=== PATIENT | male | born 1960 | race Caucasian/White ===

== ENCOUNTER 2020-07-27 14:41 | Outpatient (CLI) | payer OTHER, SELFPAY ==
--- NOTE | 2020-07-27 14:51 | XR_ITS ---
WS: [id number] LUMBAR SPINE: 3 VIEWS TECHNIQUE: AP, lateral and L5-S1 spot. HISTORY: LOW BACK PAIN, SCIATICA, LEFT SIDE, FALL INITIAL ENCOUNTER COMPARISON: None available. Normal lumbar alignment. Mild disc space narrowing at L5-S1. Small endplate osteophytes at all levels . No acute fractures are identified. SI joints are symmetric bilaterally. No soft tissue abnormalities. Scattered calcification in aorta. XR/XR lumbar spine 2-3V* [id number] IMPRESSION: No acute lumbar spine fracture. Mild atherosclerosis aorta.
--- NOTE | 2020-07-27 14:51 | XR_ITS ---
WS: [id number] PELVIS: AP VIEW SUBMITTED HISTORY: LOW BACK PAIN, SCIATICA, LEFT SIDE, FALL INITIAL ENCOUNTER COMPARISON: None available. No fractures are identified. Enthesopathy from the iliac crest. Mild narrowing of the hip joints and SI joints. XR/XR pelvis 1-2V* [id number] IMPRESSION: Degenerative changes at the SI joints and hip joints. No fracture identified. I f pain continues consider additional evaluation by CT.
== END 2020-07-27 14:42 | disposition home or self-care (01) ==
LOC: RADWPI 14:44
PROVIDERS: PCP Nurse Practitioner Family; Visit Provider Nurse Practitioner Family
DX: M54.5 Low back pain (principal); M54.32 Sciatica, left side; W19.XXXA Unspecified fall, initial encounter; I70.0 Atherosclerosis of aorta
CPT/HCPCS: 72100; 72170

== ENCOUNTER 2022-01-26 11:19 | Outpatient (CLI) | payer OTHER, SELFPAY ==
--- NOTE | 2022-01-26 11:38 | XR_ITS ---
WS: [id number] Acute abdomen series, 01/26/2022 Clinical Data: ABDOMINAL PAIN, LOOSE STOOLS Comparison: None. Findings: In the chest there are no nodules, masses or effusions. The heart is normal. The pulmonary vascularity is not increased. There is right lower pleural thickening which may be from a prior infec tion or trauma. No free air is seen beneath the diaphragms. No abnormal intra-abdominal masses or calcifications are seen. There is air in the stomach, small bowel and colon but no evidence of obstruction. XR/XR acute abdomen series [id number] Impression: 1. Right lower pleural thickening which may be from an old injury or infection. 2. Mild generalized ileus.
== END 2022-01-26 11:20 | disposition home or self-care (01) ==
LOC: RAD 11:31
PROVIDERS: PCP Nurse Practitioner Family; Visit Provider Nurse Practitioner Family
DX: R10.9 Unspecified abdominal pain (principal); R19.5 Other fecal abnormalities; K56.7 Ileus, unspecified
CPT/HCPCS: 74022

== ENCOUNTER 2022-05-06 05:18 | Emergency (ER) | payer OTHER, SELFPAY ==
[2022-05-06 05:20] VITALS: BP 186/77; PULSE 90; RESP 18; O2SAT 98; BMI 22.1
--- NOTE | 2022-05-06 05:29 | ED_ITS ---
Documented by User: Kj Villafana MD 05/13/22 01:21 HPI - General Adult General: Chief complaint: General Medical Stated complaint: PAIN FROM SURGERY SITE Time Seen by Provider: 05/06/22 05:29 History of Present Illness: Mr Shin is a 62-year-old gentleman who presents to the emergency department due to concern over postoperative swelling and increased pain. He reports having a inguinal hernia repair performed by Dr. Donovan in the outpatient surgery center yesterday. He was doing well postoperatively until midnight when he noticed increased swelling and pain primarily in the right groin region. He denies specific provoking factor. Since that time s ymptoms have worsened. Pain is moderate to severe. He reports urinating before he went to bed, he has not had bowel movement yet, denies nausea or vomiting. No other signs of systemic illness. No other specific changes in health, exacerbating, or alleviating factors identified. Onset (ago): hour(s) Location: pelvis and genitals Severity: moderate Quality: aching and sharp Pain Consistency: constant Exacerbating factors: movement Review of Systems General: Reports: 10 or more systems reviewed and unremarkable except in HPI and below PFSH ED PFSH: Surgical History H/O hernia repair Family History Denies family history of Clotting disorder Bleeding disorder Physical Exam Const: COMMON NORMALS: alert GENERAL APPEARANCE: cooperative and well developed HENMT: COMMON NORMALS: normocephalic and atraumatic HEAD & SCALP: normocephalic and atraumatic Eye: COMMON NORMALS: conjunctivae normal CONJUNCTIVA: Yes conjunctivae normal SCLERA: sclerae normal Neck/C-Spine: COMMON NORMALS: supple GENERAL: Yes trachea midline Resp: COMMON NORMALS: normal respiratory effort EFFORT & INSPECTION: Yes able to speak in complete sentences Cardio: COMMON NORMALS: regular rate and regular rhythm RATE: regular rate RHYTHM: regular rhythm GI: COMMON NORMALS: Soft to palpation PALPATION: Yes Soft to palpation and Yes Tenderness to palpation present (GI) OTHER: echymosis and swelling in the suprapubic region and inguinal region Extremity: GENERAL: Yes normal exam except as noted and No edema Neuro: COMMON NORMALS: moves all extremities SENSORIUM/ORIENTATION: Yes alert and No Orientation impaired Psych: COMMON NORMALS: mental status grossly normal and Normal thought process present THOUGHT PROCESS: Normal thought process present Course ED course: - Patient was seen and evaluated by me at bedside - Patient placed on cardiac monitors, IV access obtained - Initial evaluation notable for exam as above, inguinal swelling in the postoperative region. No evidence of acute surgical abdomen. - Patient care handed off to Dr. Bradshaw pending completion of imaging and discussion with operating surgeon Vital Signs: Vital signs: Vital Signs Pulse Rate 86 05/06/22 10:51 Respiratory Rate 14 05/06/22 10:51 Blood Pressure 179/90 05/06/22 10:51 Pulse Oximetry 98 05/06/22 10:51 MDM - General Adult Medical Decision Making 62-year-old gentleman with recent inguinal repair presenting with swelling and pain. Handed off to Dr. Bradshaw pending completion of CT read and discussion with operating surgeon. Hematoma in inguinal area likely caused by his Plavix. Discussed with Dr. Malcolm at this point so anything that would drain last the patient to stop his Plavix use ice on the area also gave him pain medications. Discharge home follow-up with Dr. Malcolm early next week return if is further problems. Strongly encoura ged him to avoid any exertional activities follow the restrictions given by Dr. Donovan postop very closely. Lab Data : 05/06/22 06:20 05/06/22 06:20 Radiology Impressions Abdomen/Pelvis CT 05/06/22 05:38 IMPRESSION: Postsurgical changes in the right inguinal region. Significant heterogenous/soft tissue enlargement extending from the right inguinal region into the scrotum concerning for postoperative hematoma/blood products. Laboratory Results WBC 16.9 10^3/uL (4.0-10.0) H 05/06/22 06:20 RBC 4.61 10^6/uL (4.1-5.3) 05/06/22 06:20 Hgb 15.0 g/dL (11.7-16.6) 05/06/22 06:20 Hct 43.4 % (42.0-52.0) 05/06/22 06:20 MCV 94.1 fl (80-94) H 05/06/22 06:20 MCH 32.5 pg (28.0-34.0) 05/06/22 06:20 MCHC 34.6 g/dL (30.0-36.0) 05/06/22 06:20 RDW 13.2 % (12.1-15.1) 05/06/22 06:20 Plt Count 231 10^3/cmm (130-400) 05/06/22 06:20 MPV 10.1 fL (7.4-10.4) 05/06/22 06:20 Neut % (Auto) 82.1 % 05/06/22 06:20 Lymph % (Auto) 9.6 % 05/06/22 06:20 Dukes % (Auto) 7.4 % 05/06/22 06:20 Eos % (Auto) 0.1 % 05/06/22 06:20 Baso % (Auto) 0.4 % 05/06/22 06:20 Neut # (Auto) 13.84 10^3/uL (1.8-7.7) H 05/06/22 06:20 Lymph # (Auto) 1.6 10^3/uL (0.8-4.8) 05/06/22 06:20 Dukes # (Auto) 1.2 10^3/uL (0.2-0.9) H 05/06/22 06:20 Eos # (Auto) 0.0 10^3/uL (0.0-0.8) 05/06/22 06:20 Baso # (Auto) 0.1 10^3/uL (0.0-0.1) 05/06/22 06:20 Nucleated RBC % (auto) 0 % 05/06/22 06:20 Nucleated RBCs # 0.0 /100WBC 05/06/22 06:20 Sodium 138 mmol/L (136-145) 05/06/22 06:20 Potassium 3.5 mmol/L (3.5-5.1) 05/06/22 06:20 Chloride 101 mmol/L (98-107) 05/06/22 06:20 Carbon Dioxide 25 mmol/L (22-29) 05/06/22 06:20 Anion Gap 15.5 (5-19) 05/06/22 06:20 BUN 24 mg/dL (8-23) H 05/06/22 06:20 Creatinine 0.9 mg/dL (0.7-1.2) 05/06/22 06:20 GFR Calculation 85.2 mL/min (90-130) L 05/06/22 06:20 Glucose 160 mg/dL (65-115) H 05/06/22 06:20 Calculated Osmolality 293 mOsm/kg (285-295) 05/06/22 06:20 Calcium 9.1 mg/dL (8.5-10.5) 05/06/22 06:20 Total Bilirubin 0.7 mg/dL (0.15-1.2) 05/06/22 06:20 AST 18 U/L (0-40) 05/06/22 06:20 ALT 17 U/L (0-41) 05/06/22 06:20 Alkaline Phosphatase 60 IU/L (40-130) 05/06/22 06:20 Total Protein 6.2 g/dL (6.6-8.7) L 05/06/22 06:20 Albumin 4.0 g/dL (3.5-5.2) 05/06/22 06:20 Globulin 2.2 g/dL (1.3-4.6) 05/06/22 06:20 Discharge Plan Discharge Patient Disposition: Home Clinical Impression: Postoperative hematoma, Medication side effect Condition: Stable Prescriptions: New hydrocodone-acetaminophen 5-325 mg tablet 1 tab PO Q6H PRN (Reason: pain) Qty: 25 0RF Discharge Orders: Discharge ED (Routine); Ordered 05/06/22 Ordered By: Tiago Bradshaw Referrals: Snowden,Marcelina, [employer] [Primary Care Provider] - Discharge Diet: Usual diet Discharge Activity: Limit activity as instructed Patient Instructions: Opioid Safety Activity Restrictions/Additional Instructions: No strenuous activities. Continue same lifting restrictions given to you by Dr. Donovan after your surgery. Follow-up with Dr. Donovan next week to reevaluate the hematoma. Stop taking your clopidogrel until Dr. Donovan has your resume. Sign Out Sign Out Data: Patient Sign Out occurred on 05/06/22 at 06:45. Patient's care was discussed, and care was transferred from to Tiago Bradshaw DO. Coding Level of Care Code ED Book Illustrator for Chg Fwd Documented by User: Tiago Bradshaw DO 05/06/22 16:27 HPI - General Adult General: Chief complaint: General Medical Stated complaint: PAIN FROM SURGERY SITE Time Seen by Provider: 05/06/22 05:29 PFSH ED PFSH: Surgical History H/O hernia repair Family History Denies family history of Clotting disorder Bleeding disorder Course Vital Signs: Vital signs: Vital Signs Pulse Rate 86 05/06/22 10:51 Respiratory Rate 14 05/06/22 10:51 Blood Pressure 179/90 05/06/22 10:51 Pulse Oximetry 98 05/06/22 10:51 MDM - General Adult Medical Decision Making Hematoma in inguinal area likely caused by his Plavix. Discussed with Dr. Malcolm at this point so anything that would drain last the patient to stop his Plavix use ice on the area also gave him pain medications. Discharge home follow-up with Dr. Malcolm early next week return if is further problems. Strongly encouraged him to avoid any exertional activities follow the restrictions given by Dr. Donovan postop very closely. Medical Records I reviewed the patient's medical records. Lab Data I reviewed the patient's lab results. : 05/06/22 06:20 05/06/22 06:20 Radiology Impressions Abdomen/Pelvis CT 05/06/22 05:38 IMPRESSION: Postsurgical changes in the right inguinal region. Significant heterogenous/soft tissue enlargement extending from the right inguinal region into the scrotum concerning for postoperative hematoma/blood products. Laboratory Results WBC 16.9 10^3/uL (4.0-10.0) H 05/06/22 06:20 RBC 4.61 10^6/uL (4.1-5.3) 05/06/22 06:20 Hgb 15.0 g/dL (11.7-16.6) 05/06/22 06:20 Hct 43.4 % (42.0-52.0) 05/06/22 06:20 MCV 94.1 fl (80-94) H 05/06/22 06:20 MCH 32.5 pg (28.0-34.0) 05/06/22 06:20 MCHC 34.6 g/dL (30.0-36.0) 05/06/22 06:20 RDW 13.2 % (12.1-15.1) 05/06/22 06:20 Plt Count 231 10^3/cmm (130-400) 05/06/22 06:20 MPV 10.1 fL (7.4-10.4) 05/06/22 06:20 Neut % (Auto) 82.1 % 05/06/22 06:20 Lymph % (Auto) 9.6 % 05/06/22 06:20 Dukes % (Auto) 7.4 % 05/06/22 06:20 Eos % (Auto) 0.1 % 05/06/22 06:20 Baso % (Auto) 0.4 % 05/06/22 06:20 Neut # (Auto) 13.84 10^3/uL (1.8-7.7) H 05/06/22 06:20 Lymph # (Auto) 1.6 10^3/uL (0.8-4.8) 05/06/22 06:20 Dukes # (Auto) 1.2 10^3/uL (0.2-0.9) H 05/06/22 06:20 Eos # (Auto) 0.0 10^3/uL (0.0-0.8) 05/06/22 06:20 Baso # (Auto) 0.1 10^3/uL (0.0-0.1) 05/06/22 06:20 Nucleated RBC % (auto) 0 % 05/06/22 06:20 Nucleated RBCs # 0.0 /100WBC 05/06/22 06:20 Sodium 138 mmol/L (136-145) 05/06/22 06:20 Potassium 3.5 mmol/L (3.5-5.1) 05/06/22 06:20 Chloride 101 mmol/L (98-107) 05/06/22 06:20 Carbon Dioxide 25 mmol/L (22-29) 05/06/22 06:20 Anion Gap 15.5 (5-19) 05/06/22 06:20 BUN 24 mg/dL (8-23) H 05/06/22 06:20 Creatinine 0.9 mg/dL (0.7-1.2) 05/06/22 06:20 GFR Calculation 85.2 mL/min (90-130) L 05/06/22 06:20 Glucose 160 mg/dL (65-115) H 05/06/22 06:20 Calculated Osmolality 293 mOsm/kg (285-295) 05/06/22 06:20 Calcium 9.1 mg/dL (8.5-10.5) 05/06/22 06:20 Total Bilirubin 0.7 mg/dL (0.15-1.2) 05/06/22 06:20 AST 18 U/L (0-40) 05/06/22 06:20 ALT 17 U/L (0-41) 05/06/22 06:20 Alkaline Phosphatase 60 IU/L (40-130) 05/06/22 06:20 Total Protein 6.2 g/dL (6.6-8.7) L 05/06/22 06:20 Albumin 4.0 g/dL (3.5-5.2) 05/06/22 06:20 Globulin 2.2 g/dL (1.3-4.6) 05/06/22 06:20 Discharge Plan Discharge Patient Disposition: Home Clinical Impression: Postoperative hematoma, Medication side effect Condition: Stable Prescriptions: New hydrocodone-acetaminophen 5-325 mg tablet 1 tab PO Q6H PRN (Reason: pain) Qty: 25 0RF Discharge Orders: Discharge ED (Routine); Ordered 05/06/22 Ordered By: Tiago Bradshaw Referrals: Marcelina Snowden FNP [Primary Care Provider] - Discharge Diet: Usual diet Discharge Activity: Limit activity as instructed Patient Instructions: Opioid Safety Activity Restrictions/Additional Instructions: No strenuous activities. Continue same lifting restrictions given to you by Dr. Donovan after your surgery. Follow-up with Dr. Donovan next week to reevaluate the hematoma. Stop taking your clopidogrel until Dr. Donovan has your resume. Sign Out Sign Out Data: Patient Sign Out occurred on 05/06/22 at 06:45. Patient's care was discussed, and care was transferred from to Tiago Bradshaw DO. Coding Level of Care Code ED Book Illustrator for Danitzag Juve
--- NOTE | 2022-05-06 05:38 | CTR_ITS ---
PROCEDURE INFORMATION: Exam: CT Abdomen And Pelvis With Contrast Exam date and time: 05/06/2022 7:03 AM Age: 62 years old Clinical indication: Pain; Other: Right inguinal S/P hernia repair; Prior surgery; Surgery date: Post-operative (0-2 days); Surgery type: Right inguinal hernia; Additional info: Increased pain and swelling post hernia repair pod1 TECHNIQUE: Imaging protocol: Computed tomography of the abdomen and pelvis with contrast. Radiation optimization: All CT scans at this facility use at least one of these dose optimization techniques: automated exposure control; mA and/or kV adjustment per patient size (includes targeted exams where dose is matched to clinical indication); or iterative reconstruction. Contrast material: OMNIPAQUE 350; Contrast volume: 90 ml; Contrast route: INTRAVENOUS (IV); COMPARISON: CR XR acute abdomen series [id number] 01/26/2022 11:41 AM RADIATION DOSE METRICS: Total DLP (mGy-cm): 1420.79 FINDINGS: Lungs: The visualized lung bases demonstrate no focal airspace opacification or pleural effusion. Pleural spaces: Minimal pleural scarring/thickening in the lateral portion of the right lung base. Heart: The visualized heart is within normal limits for size. There is no evidence of pericardial abnormality. Liver: The liver is normal in size and contour. Gallbladder and bile ducts: The gallbladder is distended with normal wall thickness and does not demonstrate calcified gallstones. No intra- or extra-hepatic biliary ductal dilatation. Pancreas: Mild atrophy of the pancreas. Spleen: The spleen appears normal. Adrenal glands: The adrenals appear normal. Kidneys and ureters: The kidneys enhance symmetrically and empty into non-dilated ureters. Stomach and bowel: The stomach appears unremarkable. Distal small bowel fecalization which may be related to delayed enteric transit. No small bowel wall thickening, perienteric inflammatory changes, or abnormal dilation concerning for significant obstruction. The large bowel loops are not abnormally dilated. Appendix: No signs of appendicitis. Intraperitoneal space: No ascites or significant fluid collection. Vasculature: The aorta is nonaneurysmal. The IVC appears normal. Lymph nodes: There are no enlarged lymph nodes. Urinary bladder: The bladder is distended and demonstrates no focal contour abnormality. Reproductive: Prostate does not appear enlarged. The seminal vesicles appear unremarkable. Bones/joints: Unremarkable. Soft tissues: Subcutaneous emphysema along the anterior margin of the right anterior abdominal wall extending to the inguinal region and into the scrotum. Prominent heterogenous mixed density attenuation noted extending from the external os of the right inguinal canal into the scrotum concerning for possible hemorrhagic blood products. Fat stranding in the superficial soft tissues of the anterior pelvic wall and upper scrotal region. CT/CT abdomen pelvis w con* [id number] IMPRESSION: Postsurgical changes in the right inguinal region. Significant heterogenous/soft tissue enlargement extending from the right inguinal region into the scrotum concerning for postoperative hematoma/blood products.
[2022-05-06 06:29] LABS: Basophils # 0.1 10^3/uL (0.0-0.1); Basophils % 0.4 %; Eosinophils % 0.1 %; Hematocrit 43.4 % (42.0-52.0); Lymphocytes # 1.6 10^3/uL (0.8-4.8); Lymphocytes % 9.6 %; Mean Corpuscular HGB Conc 34.6 g/dL (30.0-36.0); Mean Corpuscular Hemoglobin 32.5 pg (28.0-34.0); Mean Corpuscular Volume 94.1 fl (80-94); Mean Platelet Volume 10.1 fL (7.4-10.4); Monocytes # 1.2 10^3/uL (0.2-0.9); Monocytes % 7.4 %; Neutrophils # 13.84 10^3/uL (1.8-7.7); Neutrophils % 82.1 %; Nucleated Red Blood Cells % 0 %; Platelet Count 231 10^3/cmm (130-400); Red Blood Count 4.61 10^6/uL (4.1-5.3); Red Cell Distribution Width 13.2 % (12.1-15.1); White Blood Count 16.9 10^3/uL (4.0-10.0)
[2022-05-06 06:46] LABS: Alanine Aminotransferase 17 U/L (0-41); Alkaline Phosphatase 60 IU/L (40-130); Anion Gap 15.5 (5-19); Aspartate Amino Transferase 18 U/L (0-40); Blood Urea Nitrogen 24 mg/dL (8-23); Calcium 9.1 mg/dL (8.5-10.5); Carbon Dioxide 25 mmol/L (22-29); Chloride 101 mmol/L (98-107); Globulin 2.2 g/dL (1.3-4.6); Glomerular Filtration Rate 85.2 mL/min (90-130); Glucose 160 mg/dL (65-115); Osmolality Calculated 293 mOsm/kg (285-295); Potassium 3.5 mmol/L (3.5-5.1); Sodium 138 mmol/L (136-145); Total Bilirubin 0.7 mg/dL (0.15-1.2); Total Protein 6.2 g/dL (6.6-8.7)
[2022-05-06 06:48] VITALS: BP 158/83; PULSE 87; RESP 17; O2SAT 95
[2022-05-06] MEDS: iohexol 350 mg/mL 100 mL Btl IV (07:13)
[2022-05-06 08:56] VITALS: BP 171/83; PULSE 82; RESP 16; O2SAT 97
[2022-05-06] MEDS: morphine 4 mg/mL SDV 1 mL IVP (08:56)
[2022-05-06 10:51] VITALS: BP 179/90; PULSE 86; RESP 14; O2SAT 98
== END 2022-05-06 10:54 | disposition home or self-care (01) ==
PROVIDERS: Emergency Medicine; Emergency Provider Family Medicine; PCP Nurse Practitioner Family
DX: N99.840 Postprocedural hematoma of a genitourinary system organ or structure following a genitourinary system procedure (principal); T50.905A Adverse effect of unspecified drugs, medicaments and biological substances, initial encounter
CPT/HCPCS: 74177; 80053; 85025; 96374; 99284; J2270; Q9967

== ENCOUNTER 2022-07-19 13:44 | Emergency (ER) | payer OTHER, SELFPAY ==
[2022-07-19 14:07] VITALS: BP 158/76; PULSE 76; RESP 18; TEMP 36.7; O2SAT 98; BMI 23.3
--- NOTE | 2022-07-19 14:46 | XRR_ITS ---
PROCEDURE INFORMATION: Exam: XR Chest Exam date and time: 07/19/2022 3:25 PM Age: 62 years old Clinical indication: Pain; Angina pectoris; Additional info: Chest pain TECHNIQUE: Imaging protocol: Radiologic exam of the chest. Views: 1 view. COMPARISON: CT abdomen pelvis w con* [id number] 05/06/2022 7:03 AM FINDINGS: Lungs: Unremarkable. No consolidation. Pleural spaces: Unremarkable. No pleural effusion. No pneumothorax. Heart/Mediastinum: Unremarkable. No cardiomegaly. Bones/joints: Unremarkable. XR/XR chest 1V portable [id number] IMPRESSION: No acute findings.
--- NOTE | 2022-07-19 16:58 | ECG_ITS ---
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 Measurements Intervals [place] Rate: 73 P: 81 [place]: 162 QRS: 77 QRSD: 106 T: 73 QT: 377 QTc: 418 Interpretive Statements SINUS RHYTHM No previous ECG available for comparison Electronically Signed On 07-19-2022 18:00:28 CDT by Ericka Musa M.D. [email or web address]
[2022-07-19 17:06] LABS: Basophils # 0.1 10^3/uL (0.0-0.1); Basophils % 0.8 %; Eosinophils # 0.3 10^3/uL (0.0-0.8); Eosinophils % 3.4 %; Hematocrit 54.2 % (42.0-52.0); Hemoglobin 17.3 g/dL (11.7-16.6); Lymphocytes # 1.7 10^3/uL (0.8-4.8); Lymphocytes % 22.8 %; Mean Corpuscular HGB Conc 31.9 g/dL (30.0-36.0); Mean Corpuscular Hemoglobin 31.3 pg (28.0-34.0); Mean Corpuscular Volume 98.2 fl (80-94); Mean Platelet Volume 10.2 fL (7.4-10.4); Monocytes # 0.5 10^3/uL (0.2-0.9); Monocytes % 7.1 %; Neutrophils # 4.79 10^3/uL (1.8-7.7); Neutrophils % 65.8 %; Nucleated Red Blood Cells % 0 %; Platelet Count 297 10^3/cmm (130-400); Red Blood Count 5.52 10^6/uL (4.1-5.3); Red Cell Distribution Width 13.2 % (12.1-15.1); White Blood Count 7.3 10^3/uL (4.0-10.0)
[2022-07-19 17:30] LABS: Troponin(5th) Baseline 23 ng/L (0-15)
[2022-07-19 17:48] LABS: Anion Gap 19.9 (5-19); Blood Urea Nitrogen 16 mg/dL (8-23); Carbon Dioxide 25 mmol/L (22-29); Chloride 99 mmol/L (98-107); Glomerular Filtration Rate 75.5 mL/min (90-130); Glucose 162 mg/dL (65-115); Osmolality Calculated 295 mOsm/kg (285-295); Potassium 3.9 mmol/L (3.5-5.1); Sodium 140 mmol/L (136-145)
--- NOTE | 2022-07-19 18:29 | ED_ITS ---
HPI - Chest Pain General: Chief Complaint: Chest Pain Stated Complaint: CHEST PAIN Time Seen by Provider: 07/19/22 18:18 Source: patient Mode of arrival: ambulatory History of Present Illness: 62-year-old male presents to the emergency room with complaints of chest pain for the last year. He recently was seen at an outside facility and has had a lung mass in the right side that they are in the process of working up. Patient is a lifelong smoker and he is diabetic. Not noticed anything that exacerbates or relieves the pain. He is not had any associated shortness of breath nausea or diaphoresis with it. He does state he had a stress test several years ago he does not recall the result but tells me he did not require an angiogram after this testing was done. MD complaint: chest pain Timing of current episode: episodic Prior episodes: Yes Pain location: right chest Pain radiation: none Severity: mild Relieving factors: nothing Exacerbating factors: nothing Associated symptoms: Reports no associated symptoms; Deny abdominal pain, dyspnea, fever(s), nausea or vomiting Review of Systems Const: Denies: fever(s), chills, body aches, change in appetite, fatigue or malaise ENMT: Denies: throat pain, ear or mastoid pain, nasal discharge or nasal congestion Card: Denies: chest pain, edema, dyspnea on exertion or orthopnea Resp: Denies: dyspnea, productive cough or non-productive cough GI: Denies: abdominal pain, nausea, vomiting, hematemesis, coffee ground emesis, diarrhea, constipation, bloating, hematochezia or melena : Denies: flank pain, dysuria, urinary frequency or urinary urgency Skin/Breast: Denies: rash or pruritus PFSH ED PFSH: Medical History (Updated 07/19/22 @ 19:58 by Tiago Bradshaw DO) Lung mass Surgical History H/O hernia repair Family History Denies family history of Clotting disorder Bleeding disorder Social History (Updated 07/19/22 @ 18:36 by Tiago Bradshaw DO) Smoking and tobacco status: current every day smoker Alcohol intake: never Physical Exam Const: GENERAL APPEARANCE: cooperative and comfortable ORIENTATION/CONSCIOUSNESS: Yes awake, Yes oriented to person, Yes oriented to place and Yes oriented to time HENMT: COMMON NORMALS: normocephalic, atraumatic and hearing grossly normal bilaterally HEAD & SCALP: normocephalic and atraumatic Resp: COMMON NORMALS: normal respiratory effort, No retractions, No use of accessory muscles and clear to auscultation bilaterally AUSCULTATION: clear to auscultation bilaterally Cardio: COMMON NORMALS: regular rate, regular rhythm and No murmurs present ( Cardio) RATE: regular rate RHYTHM: regular rhythm GI: COMMON NORMALS: Soft to palpation and No hepatosplenomegaly present AUSCULTATION: Yes normoactive bowel sounds PALPATION: Yes Soft to palpation, No Tenderness to palpation present (GI), No Guarding due to palpation present (GI) and Yes No hepatosplenomegaly present Extremity: COMMON NORMALS: normal to inspection, capillary refill normal, no clubbing, cyanosis or edema, no calf tenderness and no pedal edema Neuro: SENSORIUM/ORIENTATION: Yes oriented to person, Yes oriented to place and Yes oriented to time Skin: COMMON NORMALS: no rashes or lesions noted GENERAL SKIN EXAM: no rashes or lesions noted Course Vital Signs: Vital signs: Vital Signs Temperature 97.8 F 07/19/22 18:41 Pulse Rate 78 07/19/22 18:41 Respiratory Rate 15 07/19/22 18:41 Blood Pressure 124/60 07/19/22 18:41 Pulse Oximetry 97 07/19/22 18:41 Oxygen Delivery Me thod 07/19/22 18:41 MDM - Chest Pain Medical Decision Making EKG labs and imaging reviewed. Troponin unremarkable. EKG does not show any acute changes. We will go ahead and refer the patient. He does have risk factors including diabetes smoking. Patient to be discharged home. Continue to take baby aspirin daily. He has ongoing work-up with pulmonology for a lung mass that was discovered on outside hospital. Encouraged him to complete the work-up as planned. Case management will call and make arrangements for him to do cardiac stress test. He should limit exertional activities and return to emergency room if has any worsening chest pain. Medical Records I reviewed the patient's medical records. Lab Data I reviewed the patient's lab results. : 07/19/22 16:28 07/19/22 16:28 Radiology Impressions Chest X-Ray 07/19/22 14:46 IMPRESSION: No acute findings. Laboratory Results WBC 7.3 10^3/uL (4.0-10.0) 07/19/22 16: RBC 5.52 10^6/uL (4.1-5.3) H 07/19/22 16: Hgb 17.3 g/dL (11.7-16.6) H 07/19/22 16:28 Hct 54.2 % (42.0-52.0) H 07/19/22 16: MCV 98.2 fl (80-94) H 07/19/22 16: MCH 31.3 pg (28.0-34.0) 07/19/22 16: MCHC 31.9 g/dL (30.0-36.0) 07/19/22 16: RDW 13.2 % (12.1-15.1) 07/19/22 16: Plt Count 297 10^3/cmm (130-400) 07/19/22 16: MPV 10.2 fL (7.4-10.4) 07/19/22 16: Neut % (Auto) 65.8 % 07/19/22 16: Lymph % (Auto) 22.8 % 07/19/22 16: [place] % (Auto) 7.1 % 07/19/22 16: Eos % (Auto) 3.4 % 07/19/22 16: Baso % (Auto) 0.8 % 07/19/22 16: Neut # (Auto) 4.79 10^3/uL (1.8-7.7) 07/19/22 16: Lymph # (Auto) 1.7 10^3/uL (0.8-4.8) 07/19/22 16: [place] # (Auto) 0.5 10^3/uL (0.2-0.9) 07/19/22 16: Eos # (Auto) 0.3 10^3/uL (0.0-0.8) 07/19/22 16: Baso # (Auto) 0.1 10^3/uL (0.0-0.1) 07/19/22 16: Nucleated RBC % (auto) 0 % 07/19/22 16:28 Nucleated RBCs # 0.0 /100WBC 07/19/22 16:28 Sodium 140 mmol/L (136-145) 07/19/22 16:28 Potassium 3.9 mmol/L (3.5-5.1) 07/19/22 16:28 Chloride 99 mmol/L (98-107) 07/19/22 16:28 Carbon Dioxide 25 mmol/L (22-29) 07/19/22 16:28 Anion Gap 19.9 (5-19) H 07/19/22 16:28 BUN 16 mg/dL (8-23) 07/19/22 16:28 Creatinine 1.0 mg/dL (0.7-1.2) 07/19/22 16:28 GFR Calculation 75.5 mL/min (90-130) L 07/19/22 16:28 Glucose 162 mg/dL (65-115) H 07/19/22 16:28 Calculated Osmolality 295 mOsm/kg (285-295) 07/19/22 16:28 Calcium 10.0 mg/dL (8.5-10.5) 07/19/22 16:28 Troponin T Baseline 23 ng/L (0-15) H 07/19/22 16:28 Troponin T 120 Minute 22.47 ng/L (0-15) H 07/19/22 18:49 Delta Troponin T -0.53 ABS# (0-10) L 07/19/22 18:49 Discharge Plan Discharge Patient Disposition: Home Clinical Impression: Atypical chest pain, Lung mass Condition: Stable Prescriptions: Changed lisinopril 10 mg tablet 20 mg PO DAILY Qty: 30 0RF No Action atorvastatin 40 mg tablet 40 mg PO BEDTIME glipizide 5 mg tablet extended release 24 hr 5 mg PO DAILY clopidogrel 75 mg tablet 75 mg PO DAILY spironolactone 25 mg tablet 25 mg PO DAILY aspirin 81 mg tablet,chewable 81 mg PO DAILY metoprolol succinate 25 mg tablet extended release 24 hr 25 mg PO DAILY albuterol sulfate 90 mcg/actuation HFA aerosol inhaler 1 puff INHALATION Q4H PRN (Reason: Shortness Of Breath Or Wheezing) Anoro Ellipta 62.5-25 mcg/actuation blister with device 1 inh INHALATION DAILY Jardiance 25 mg tablet 25 mg PO DAILY hydrocodone-acetaminophen 5-325 mg tablet 1 tab PO Q6H PRN (Reason: pain) Qty: 25 0RF Discharge Orders: Discharge ED (Routine); Ordered 07/19/22 Ordered By: Tiago Bradshaw Referrals: Marcelina Snowden FNP [Primary Care Provider] - Discharge Diet: Usual diet Discharge Activity: Increase activity as tolerated Patient Instructions: Opioid Safety, Pain Management Activity Restrictions/Additional Instructions: Case management will call to make arrangements for cardiac stress testing. Coding Level of Care Code ED Pressure Tester Operator for Chg Fwd Exam Detailed
[2022-07-19 18:41] VITALS: BP 124/60; PULSE 78; RESP 15; TEMP 36.6; O2SAT 97
[2022-07-19 19:41] LABS: Troponin 5 2HR 22.47 ng/L (0-15)
[2022-07-19 19:42] LABS: Troponin 5 2HR Delta -0.53 ABS# (0-10)
[2022-07-19 20:38] VITALS: BP 182/98; PULSE 83; RESP 15; TEMP 36.6; O2SAT 99
[2022-07-19] MEDS: lisinopril 10 mg Tablet PO (20:42)
[2022-07-19 20:45] VITALS: BP 182/98; PULSE 83; RESP 15; TEMP 36.6; O2SAT 99
== END 2022-07-19 20:49 | disposition home or self-care (01) ==
PROVIDERS: Emergency Medicine; Emergency Provider Family Medicine; PCP Nurse Practitioner Family
DX: R07.89 Other chest pain (principal); R91.8 Other nonspecific abnormal finding of lung field; Z79.84 Long term (current) use of oral hypoglycemic drugs; Z79.02 Long term (current) use of antithrombotics/antiplatelets; Z79.82 Long term (current) use of aspirin; F17.210 Nicotine dependence, cigarettes, uncomplicated
CPT/HCPCS: 36415; 71045; 80048; 84484; 85025; 93005; 99284; 99285

== ENCOUNTER 2023-11-22 13:25 | Emergency (ER) | payer OTHER, SELFPAY ==
[2023-11-22 13:32] VITALS: BP 105/62; PULSE 78; RESP 17; TEMP 37.1; O2SAT 92; BMI 24.3
--- NOTE | 2023-11-22 13:46 | XR_ITS ---
WS: [id number] Exam: XR chest 1V portable [id number] Date/Time of Exam: 11/22/2023 1:46 PM Reason For Exam: cough Comparison 07/19/2022. The lungs are clear and fully inflated. Chronic interstitial changes noted. Chronic pleural thickenin g at the RIGHT costophrenic angle. Normal cardiomediastinal silhouette. Bony structures appear normal . IMPRESSION: 1. No acute cardiopulmonary finding. 2. Chronic changes as detailed above.
--- NOTE | 2023-11-22 14:48 | ED_ITS ---
HPI - COVID 2 General: Chief Complaint: COVID symptoms Stated Complaint: congested Time Seen by Provider: 11/22/23 13:46 History of Present Illness: 63-year-old male patient comes in today with cough and congestion for the last 3 days. Patient reports was diagnosed with flu yesterday. Patient thought his provider was going to send in a prescription for some medication that he never got the prescription. Patient reports that he feels unwell and does not feel like he is able to catch his breath. Patient does have a history of COPD and a lung mass. Patient takes routine medicines for this. Patient appears mildly unwell but nontoxic. Patient appears in no acute distress. COVID Results: 2 No Data to Display Review of Systems 2 General: Reports: 10 or more systems reviewed and unremarkable except in HPI and below Resp: Reports: chest congestion PFS ED 2 PFSH: Medical History (Updated 11/22/23 @ 17:09 by LEAH Kingsley) Lung mass Surgical History H/O hernia repair Family History Denies family history of Clotting disorder Bleeding disorder Social History (Updated 07/19/22 @ 18:36 by Tiago Bradshaw DO) Smoking and tobacco/nicotine status: current every day tobacco/nicotine user Alcohol intake: never Physical Exam 2 Const: COMMON NORMALS: alert HENMT: COMMON NORMALS: normocephalic HEAD & SCALP: normocephalic Neck/C-Spine: COMMON NORMALS: full ROM Chest: COMMONS NORMALS: normal inspection of the chest Resp: COMMON NORMALS: normal respiratory effort AUSCULTATION: diminished lung sounds Cardio: COMMON NORMALS: regular rate and regular rhythm RATE: regular rate RHYTHM: regular rhythm Extremity: COMMON NORMALS: normal to inspection Neuro: SENSORIUM/ORIENTATION: Yes alert Skin: COMMON NORMALS: turgor normal GENERAL SKIN EXAM: turgor normal Course 2 ED course: 1620, patient had oxygen saturations get ting down into the upper 80s. Patient does know of his oxygen running low at times but has been resistant in the past for initiation of oxygen. Patient does continue to smoke tobacco. Vital Signs: Vital signs: Vital Signs Temperature 98.7 F 11/22/23 13:32 Pulse Rate 89 11/22/23 16:25 Respiratory Rate 16 11/22/23 16:22 Blood Pressure 105/62 11/22/23 13:32 Pulse Oximetry 87 L 11/22/23 16:29 Oxygen Delivery Me thod Room Air 11/22/23 16:22 Oxygen Flow Rate 2 11/22/23 15:00 [facility] - COVID Medical Decision Making 63-year-old male patient comes in today for complaints of fatigue and malaise. Patient was seen yesterday at primary care and diagnosed with influenza. Patient thought that he was being prescribed medication but no medications were sent to the pharmacy. On exam patient appears nontoxic. Lungs are decreased in the bases. Vital signs are normal except for some mild hypoxia ranging between 88 and 92% on room air. Patient does have a history of COPD and a lung mass. Differential diagnosis includes not limited to pneumonia, exacerbation of COPD, influenza, respiratory failure. No signs of severe illness is noted. Chest x- ray was stable. Laboratory values noted a white count of 13,000, hemoglobin [place] crit are slightly elevated at 17.9/53. CMP noted some mild elevation in glucose at 293, and a sodium of 132. Patient was given 500 mL of fluid. Patient was given steroids for exacerbation of COPD and a dose of ceftriaxone. Patient be continued on 20 mg prednisone daily for the next 7 days and Augmentin. Patient should continue with use of home medications and follow-up with primary care or return to ER for worsening symptoms. Respiratory Home O2 eval did qualify patient for 3 L of oxygen per nasal cannula. Prescription was written. Believe patient will benefit from oxygen therapy. Strongly discussed cessation of tobacco smoking. Lab Data 11/22/23 15:08 11/22/23 15:08 Laboratory Results WBC 13.19 10^3/uL (3.29-11.43) H 11/22/23 15:08 RBC 5.47 10^6/uL (3.85-5.65) 11/22/23 15:08 Hgb 17.90 g/dL (11.27-16.99) H 11/22/23 15:08 Hct 53.3 % (37-53) H 11/22/23 15:08 MCV 97.4 fl (82-101) 11/22/23 15:08 MCH 32.7 pg (27-33) 11/22/23 15:08 MCHC 33.6 g/dL (30-55) 11/22/23 15:08 RDW 13.7 % (12.1-15.1) 11/22/23 15:08 Plt Count 194 10^3/cmm (157-399) 11/22/23 15:08 MPV 10.7 fL (7.4-10.4) H 11/22/23 15:08 Neut % (Auto) 83.7 % 11/22/23 15:08 Lymph % (Auto) 4.2 % 11/22/23 15:08 [place] % (Auto) 11.4 % 11/22/23 15:08 Eos % (Auto) 0.0 % 11/22/23 15:08 Baso % (Auto) 0.2 % 11/22/23 15:08 Neut # (Auto) 11.03 10^3/uL (1.8-7.7) H 11/22/23 15:08 Lymph # (Auto) 0.6 10^3/uL (0.8-4.8) L 11/22/23 15:08 [place] # (Auto) 1.5 10^3/uL (0.2-0.9) H 11/22/23 15:08 Eos # (Auto) 0.0 10^3/uL (0.0-0.8) 11/22/23 15:08 Baso # (Auto) 0.0 10^3/uL (0.0-0.1) 11/22/23 15:08 Nucleated RBC % (auto) 0 % 11/22/23 15:08 Nucleated RBCs # 0.0 /100WBC 11/22/23 15:08 Sodium 132 mmol/L (136-145) L 11/22/23 15:08 Potassium 3.7 mmol/L (3.5-5.1) 11/22/23 15:08 Chloride 96 mmol/L (98-107) L 11/22/23 15:08 Carbon Dioxide 23 mmol/L (22-29) 11/22/23 15:08 Anion Gap 16.7 (5-19) 11/22/23 15:08 BUN 25 mg/dL (8-23) H 11/22/23 15:08 Creatinine 1.1 mg/dL (0.7-1.2) 11/22/23 15:08 GFR Calculation 67.4 mL/min (90-130) L 11/22/23 15:08 Glucose 293 mg/dL (65-115) H 11/22/23 15:08 Calculated Osmolality 289 mOsm/kg (285-295) 11/22/23 15:08 Calcium 8.9 mg/dL (8.5-10.5) 11/22/23 15:08 Total Bilirubin 0.7 mg/dL (0.15-1.2) 11/22/23 15:08 AST 26 U/L (0-40) 11/22/23 15:08 ALT 19 U/L (0-41) 11/22/23 15:08 Alkaline Phosphatase 84 U/L (40-130) 11/22/23 15:08 Total Protein 6.7 g/dL (6.6-8.7) 11/22/23 15:08 Albumin 3.4 g/dL (3.5-5.2) L 11/22/23 15:08 Globulin 3.3 g/dL (1.3-4.6) 11/22/23 15:08 2 No Data to Display All radiology interpretation(s) finalized by discharge Discharge Plan Discharge Patient Disposition: Home Clinical Impression: Influenza, Acute exacerbation of chronic obstructive pulmonary disease, Hypoxia Condition: Stable Prescriptions: New prednisone 20 mg tablet 20 mg PO BID 7 Days Qty: 14 0RF amoxicillin-pot clavulanate 875-125 mg tablet 1 tab PO BID 7 Days Qty: 14 0RF No Action atorvastatin 40 mg tablet 40 mg PO BEDTIME glipizide 5 mg tablet extended release 24 hr 5 mg PO DAILY clopidogrel 75 mg tablet 75 mg PO DAILY spironolactone 25 mg tablet 25 mg PO DAILY aspirin 81 mg tablet,chewable 81 mg PO DAILY albuterol sulfate 90 mcg/actuation HFA aerosol inhaler 1 puff INHALATION Q4H PRN (Reason: Shortness Of Breath Or Wheezing) Anoro Ellipta 62.5-25 mcg/actuation blister with device 1 inh INHALATION DAILY Jardiance 25 mg tablet 25 mg PO DAILY metoprolol succinate 50 mg tablet extended release 24 hr 50 mg PO DAILY potassium chloride 10 mEq Tablet Extended Release 10 meq PO EVERY OTHER DAY amlodipine 10 mg tablet 10 mg PO DAILY lisinopril 40 mg tablet 40 mg PO DAILY Flonase 50 mcg/actuation [place],Suspension 1 spray INTRANASAL BID Rx Instructions: administer into each nostril Trelegy Ellipta 100-62.5-25 mcg blister with device 1 ea INHALATION BID Oscillococcinum See Rx Instructions .ROUTE .COMPLEX Rx Instructions: Take 1 dose orally as directed at start of symptoms, then up to 3 times daily as needed. Discharge Orders: Discharge ED (Routine); Ordered 11/22/23 Ordered By: Babak Licea Other Ambulatory Orders: DME: Oxygen (Order) Location: None Selected Ordered By: Babak Licea Referrals: Marcelina Snowden FNP [Primary Care Provider] - Discharge Diet: Usual diet Discharge Activity: Increase activity as tolerated Patient Instructions: COPD (Chronic Obstructive Pulmonary Disease) (ED) Activity Restrictions/Additional Instructions: Continue with routine medications. Drink plenty water and fluids. Follow-up with primary care for further instructions. Return to ED for new concerns. Stand Alone Forms: Work/School Release Coding Level of Care Code ED Retail Commission Sales Associate for Lidia An
[2023-11-22 15:00] VITALS: O2SAT 92
[2023-11-22 15:20] LABS: Basophils % 0.2 %; Hematocrit 53.3 % (37-53); Lymphocytes # 0.6 10^3/uL (0.8-4.8); Lymphocytes % 4.2 %; Mean Corpuscular HGB Conc 33.6 g/dL (30-55); Mean Corpuscular Hemoglobin 32.7 pg (27-33); Mean Corpuscular Volume 97.4 fl (82-101); Mean Platelet Volume 10.7 fL (7.4-10.4); Monocytes # 1.5 10^3/uL (0.2-0.9); Monocytes % 11.4 %; Neutrophils # 11.03 10^3/uL (1.8-7.7); Neutrophils % 83.7 %; Nucleated Red Blood Cells % 0 %; Platelet Count 194 10^3/cmm (157-399); Red Blood Count 5.47 10^6/uL (3.85-5.65); Red Cell Distribution Width 13.7 % (12.1-15.1); White Blood Count 13.19 10^3/uL (3.29-11.43)
[2023-11-22 15:35] LABS: Alanine Aminotransferase 19 U/L (0-41); Albumin Level 3.4 g/dL (3.5-5.2); Alkaline Phosphatase 84 U/L (40-130); Anion Gap 16.7 (5-19); Aspartate Amino Transferase 26 U/L (0-40); Blood Urea Nitrogen 25 mg/dL (8-23); Calcium 8.9 mg/dL (8.5-10.5); Carbon Dioxide 23 mmol/L (22-29); Chloride 96 mmol/L (98-107); Globulin 3.3 g/dL (1.3-4.6); Glomerular Filtration Rate 67.4 mL/min (90-130); Glucose 293 mg/dL (65-115); Osmolality Calculated 289 mOsm/kg (285-295); Potassium 3.7 mmol/L (3.5-5.1); Sodium 132 mmol/L (136-145); Total Bilirubin 0.7 mg/dL (0.15-1.2); Total Protein 6.7 g/dL (6.6-8.7)
[2023-11-22] MEDS: acetaminophen 500 mg Tablet 1000 MG PO (15:42)
[2023-11-22] MEDS: sodium chloride 0.9% 500 ML 999 ML IV (15:55)
[2023-11-22] MEDS: cefTRIAXone 1,000 MG in sodium chloride 0.9% (plus) 50 ML 100 MG IV (15:58)
[2023-11-22] MEDS: methylPREDNISolone sod succ 125 mg/2 mL INJ 80 MG IVP (16:02)
[2023-11-22] MEDS: dexamethasone 10 mg/mL INJ 8 MG IVP (16:02)
[2023-11-22 16:22] VITALS: PULSE 87; RESP 16; O2SAT 93
[2023-11-22] MEDS: ipratropium-albuterol 3 mL Neb INHALATION (16:22)
[2023-11-22 16:25] VITALS: PULSE 89
[2023-11-22 16:29] VITALS: O2SAT 87
== END 2023-11-22 18:26 | disposition home or self-care (01) ==
PROVIDERS: Emergency Provider Nurse Practitioner Family; PCP Nurse Practitioner Family
DX: J44.1 Chronic obstructive pulmonary disease with (acute) exacerbation (principal); R09.02 Hypoxemia; J11.1 Influenza due to unidentified influenza virus with other respiratory manifestations; Z72.0 Tobacco use; Z79.02 Long term (current) use of antithrombotics/antiplatelets; Z79.82 Long term (current) use of aspirin; Z79.84 Long term (current) use of oral hypoglycemic drugs
CPT/HCPCS: 36415; 71045; 80053; 85025; 94640; 96374; 96375; 99284; J0696; J1100; J2930; J7040

== ENCOUNTER 2024-08-13 15:32 | Inpatient (IN) | payer MEDICARE, SELFPAY ==
[2024-08-13 16:21] VITALS: BP 109/66; PULSE 97; RESP 24; TEMP 36.8; O2SAT 96; BMI 25.9
[2024-08-13 18:02] VITALS: BP 102/49; PULSE 91; RESP 20; O2SAT 95
[2024-08-13 20:20] LABS: Basophils % 0.5 %; Eosinophils # 0.2 10^3/uL (0.0-0.8); Eosinophils % 2.3 %; Hematocrit 55.3 % (37-53); Lymphocytes # 1.2 10^3/uL (0.8-4.8); Lymphocytes % 13.9 %; Mean Corpuscular HGB Conc 32.2 g/dL (30-55); Mean Corpuscular Volume 105.5 fl (82-101); Monocytes % 11.8 %; Neutrophils # 6.12 10^3/uL (1.8-7.7); Neutrophils % 71.2 %; Nucleated Red Blood Cells % 0 %; Platelet Count 211 10^3/cmm (157-399); Red Blood Count 5.24 10^6/uL (3.85-5.65); Red Cell Distribution Width 13.3 % (12.1-15.1); White Blood Count 8.59 10^3/uL (3.29-11.43)
[2024-08-13 20:35] LABS: Alanine Aminotransferase 12 U/L (0-41); Albumin Level 4.3 g/dL (3.5-5.2); Alkaline Phosphatase 75 U/L (40-130); Aspartate Amino Transferase 13 U/L (0-40); Calcium 8.7 mg/dL (8.5-10.5); Carbon Dioxide 12 mmol/L (22-29); Chloride 108 mmol/L (98-107); Creatinine Clr Calc Pharmacy 46.9177; Globulin 3.2 g/dL (1.3-4.6); Glomerular Filtration Rate 43.6 mL/min (90-130); Glucose 163 mg/dL (65-115); Osmolality Calculated 302 mOsm/kg (285-295); Sodium 132 mmol/L (136-145); Total Bilirubin 0.9 mg/dL (0.15-1.2); Total Protein 7.5 g/dL (6.6-8.7)
[2024-08-13 20:39] LABS: Anion Gap 17.4 (5-19); Potassium 5.4 mmol/L (3.5-5.1)
[2024-08-13 20:43] LABS: Blood Urea Nitrogen 81 mg/dL (8-23)
--- NOTE | 2024-08-13 21:19 | ED_ITS ---
HPI - Nausea/Vomiting/Diarrhea 2 General: Chief complaint: Nausea/Vomiting/Diarrhea Stated complaint: abn bp Time Seen by Provider: 08/13/24 21:16 History of Present Illness: 64-year-old man with history of hyperten jose luis and diabetes who presents to the emergency room with diarrhea, weakness and hypotension. He has been having diarrhea now for about a week. No abdominal pain. No vomiting. He has had some nausea. He was seen in clinic today and his blood pressure was low and he was told to go to the emergency room. He has not had any recent antibiotics. Related Data Home Medications Medication Instructions Recorded Confirmed albuterol sulfate 90 mcg/actuation 1 puff inhalation Q4H PRN 07/19/22 11/22/23 aerosol inhaler Shortness Of Breath Or Wheezing aspirin 81 mg chewable tablet 81 mg PO DAILY 07/19/22 11/22/23 atorvastatin 40 mg tablet 40 mg PO BEDTIME 07/19/22 11/22/23 clopidogrel 75 mg tablet 75 mg PO DAILY 07/19/22 11/22/23 empagliflozin 25 mg tablet 25 mg PO DAILY 07/19/22 11/22/23 (Jardiance) glipizide 5 mg tablet, extended 5 mg PO DAILY 07/19/22 11/22/23 release 24 hr spironolactone 25 mg tablet 25 mg PO DAILY 07/19/22 11/22/23 umeclidinium 62.5 mcg-vilanterol 1 inh inhalation DAILY 07/19/22 11/22/23 25 mcg/actuation powdr for inhalation (Anoro Ellipta) Oscillococcinum See Rx Instructions .Route .COMPLEX 11/22/23 11/22/23 amlodipine 10 mg tablet 10 mg PO DAILY 11/22/23 11/22/23 fluticasone fur. 100 mcg-umeclid 1 ea inhalation BID 11/22/23 11/22/23 62.5 mcg-vilant 25 mcg inhalat.powder (Trelegy Ellipta) fluticasone propionate 50 1 spray intranasal BID 11/22/23 11/22/23 mcg/actuation nasal spray,suspension lisinopril 40 mg tablet 40 mg PO DAILY 11/22/23 11/22/23 metoprolol succinate 50 mg 50 mg PO DAILY 11/22/23 11/22/23 tablet,extended release 24 hr potassium chloride 10 mEq 10 meq PO EVERY OTHER DAY 11/22/23 11/22/23 tablet,extended release Allergies Allergy/AdvReac Type Severity Reaction Status Date / Time aspirin Allergy Unknown Verified 08/13/24 16:30 Review of Systems 2 Narrative: Constitutional symptoms: Negative except as documented in HPI. Skin symptoms: Negative except as documented in HPI. Eye symptoms: Negative except as documented in HPI. ENMT symptoms: Negative except as documented in HPI. Respiratory symptoms: Negative except as documented in HPI. Cardiovascular symptoms: Negative except as documented in HPI. Gastrointestinal symptoms: Negative except as documented in HPI. Genitourinary symptoms: Negative except as documented in HPI. Musculoskeletal symptoms: Negative except as documented in HPI. Neurologic symptoms: Negative except as documented in HPI. Psychiatric symptoms: Negative except as documented in HPI. Endocrine symptoms: Negative except as documented in HPI. PFSH ED 2 PFSH: Medical History (Updated 08/13/24 @ 21:32 by Haja Batista MD) COPD (chronic obstructive pulmonary disease) Lung mass Surgical History H/O hernia repair Family History Denies family history of Clotting disorder Bleeding disorder Social History (Updated 07/19/22 @ 18:36 by Tiago Bradshaw DO) Smoking and tobacco/nicotine status: current every day tobacco/nicotine user Alcohol intake: never Physical Exam 2 Narrative: EXAM NARRATIVE: General: Alert, no acute distress. Skin: Warm, dry. Head: Normocephalic, atraumatic. Neck: Supple, trachea midline. Eye: Extraocular movements are intact. Ears, nose, mouth and throat: Dry oral mucosa Cardiovascular: Regular, Normal peripheral perfusion. Respiratory: Lungs are clear to auscultation, respirations are non-labored, breath sounds are equal, Symmetrical chest wall expansion. Gastrointestinal: Soft, Nontender, Non distended Musculoskeletal: Normal ROM, no deformity. Neurological: Alert and oriented, No focal neurological deficit observed. Psychiatric: Cooperative, appropriate mood & affect. Course 2 Vital Signs: Vital signs: Vital Signs Temperature 98.3 F 08/13/24 16:21 Pulse Rate 91 08/13/24 18:02 Respiratory Rate 20 H 08/13/24 18:02 Blood Pressure 102/49 10/08/24 18:02 Pulse Oximetry 95 08/13/24 18:02 Oxygen Delivery Me thod Room Air 08/13/24 18:02 MDM - Nausea/Vomiting/Diarrhea Medical Decision Making Medical decision making: Differential diagnosis including but not limited to and based on the above HPI, review of systems and physical exam: In a patient with diarrhea and weakness and low blood pressure without concern for renal failure, dehydration, C. difficile, Orders placed to evaluate differential diagnosis based on the above differential, HPI and physical exam Lab Review: Laboratory results were reviewed and interpreted by myself the emergency room physician. No leukocytosis. White count is 9. Patient is a little bit hemophilic with a red count of 17.8. He has some acute renal insufficiency with a BUN/creatinine of 81 and 1.6. Potassium is mildly elevated at 5.4. Bicarb is 12. I reviewed the patient's medical record. Consultation: I spoke with Dr. Batista who agrees to admission to observation. Assessment and plan: Acute renal failure Dehydration Diarrhea ?IV normal saline bolus in the emergency room -I discussed the patient with the hospitalist on-call who is admitting the patient. - Discussed findings and plan with patient. Answered any questions. - All laboratory values were reviewed and interpreted personally by myself, the ER physician - All imaging was reviewed and interpreted personally by myself, the ER physician. - Evaluation and treatment of this problem were appropriate in the emergency setting Lab Data 08/13/24 20:01 08/13/24 20:01 Laboratory Results WBC 8.59 10^3/uL (3.29-11.43) 08/13/24 20: RBC 5.24 10^6/uL (3.85-5.65) 08/13/24 20:01 Hgb 17.80 g/dL (11.27-16.99) H 08/13/24 20:01 Hct 55.3 % (37-53) H 08/13/24 20:01 MCV 105.5 fl (82-101) H 08/13/24 20:01 MCH 34.0 pg (27-33) H 08/13/24 20: MCHC 32.2 g/dL (30-55) 08/13/24 20: RDW 13.3 % (12.1-15.1) 08/13/24 20:01 Plt Count 211 10^3/cmm (157-399) 08/13/24 20:01 MPV 10.0 fL (7.4-10.4) 08/13/24 20:01 Neut % (Auto) 71.2 % 08/13/24 20:01 Lymph % (Auto) 13.9 % 08/13/24 20:01 [place] % (Auto) 11.8 % 08/13/24 20:01 Eos % (Auto) 2.3 % 08/13/24 20:01 Baso % (Auto) 0.5 % 08/13/24 20:01 Neut # (Auto) 6.12 10^3/uL (1.8-7.7) 08/13/24 20:01 Lymph # (Auto) 1.2 10^3/uL (0.8-4.8) 08/13/24 20:01 [place] # (Auto) 1.0 10^3/uL (0.2-0.9) H 08/13/24 20:01 Eos # (Auto) 0.2 10^3/uL (0.0-0.8) 08/13/24 20:01 Baso # (Auto) 0.0 10^3/uL (0.0-0.1) 08/13/24 20:01 Nucleated RBC % (auto) 0 % 08/13/24 20: Nucleated RBCs # 0.0 /100WBC 08/13/24 20:01 Sodium 132 mmol/L (136-145) L 08/13/24 20:01 Potassium 5.4 mmol/L (3.5-5.1) H 08/13/24 20:01 Chloride 108 mmol/L (98-107) H 08/13/24 20:01 Carbon Dioxide 12 mmol/L (22-29) L 08/13/24 20:01 Anion Gap 17.4 (5-19) 08/13/24 20:01 BUN 81 mg/dL (8-23) H D 08/13/24 20:01 Creatinine 1.6 mg/dL (0.7-1.2) H 08/13/24 20:01 GFR Calculation 43.6 mL/min (90-130) L 08/13/24 20:01 Glucose 163 mg/dL (65-115) H 08/13/24 20:01 Calculated Osmolality 302 mOsm/kg (285-295) H 08/13/24 20:01 Calcium 8.7 mg/dL (8.5-10.5) 08/13/24 20:01 Total Bilirubin 0.9 mg/dL (0.15-1.2) 08/13/24 20:01 AST 13 U/L (0-40) 08/13/24 20:01 ALT 12 U/L (0-41) 08/13/24 20:01 Alkaline Phosphatase 75 U/L (40-130) 08/13/24 20:01 Total Protein 7.5 g/dL (6.6-8.7) 08/13/24 20:01 Albumin 4.3 g/dL (3.5-5.2) 08/13/24 20:01 Globulin 3.2 g/dL (1.3-4.6) 08/13/24 20: Lipase 37 U/L (13-60) 08/13/24 20: No radiology studies performed this visit Discharge Plan Discharge Patient Disposition: Placed in Observation Clinical Impression: Acute renal insufficiency, Dehydration, Diarrhea, Metabolic acidosis Coding Level of Care Code ED Fashion Supervisor for Lidia An
[2024-08-13 21:46] LABS: Lipase 37 U/L (13-60)
--- NOTE | 2024-08-13 21:47 | P.HP_ITS ---
Providers/Chief Complaint 2 Primary Care Provider: LEAH Jordan Chief Complaint: abn bp History of Present Illness Pleasant 64-year-old gentleman with smoking, psoriasis, COPD, hypertension, other medical problems, is not a good historian, came into ER after having diarrhea for about a week, liquid stools, nonbloody but dark in appearance, states that he takes aspirin 81 mg sometimes Aleve. With diarrhea he had associated some intermittent cramping, nausea, eructation, poor oral intake. Did not vomit. On initial assessment he was hypotensive in clinic, blood pressure 80 systolic, on assessment in ER with finding of SLAON, hyperkalemia, BUN 81, creatinine 1.6, potassium 5.4. Sodium 132. Review of Systems 2 Const: Reports: change in appetite; Denies: fever(s), chills, body aches or malaise ENMT: Denies: throat pain, oral sores or ear or mastoid pain Card: Denies: chest pain, edema, pre-syncope or dyspnea on exertion Resp: Denies: dyspnea, productive cough, change in phlegm color or hemoptysis GI: Denies: abdominal pain or diarrhea : Denies: flank pain, difficulty urinating, urinary frequency or hematuria Musc: Denies: back pain, joint swelling or joint redness Skin/Breast: Denies: rash or new lesions Medications/Allergies Home Medications Medication Instructions Recorded Confirmed Last Taken Type albuterol sulfate 90 mcg/actuation 1 puff inhalation Q4H PRN 07/19/22 11/22/23 Unknown History aerosol inhaler Shortness Of Breath Or Wheezing aspirin 81 mg chewable tablet 81 mg PO DAILY 07/19/22 11/22/23 11/22/23 History atorvastatin 40 mg tablet 40 mg PO BEDTIME 07/19/22 11/22/23 11/21/23 History clopidogrel 75 mg tablet 75 mg PO DAILY 07/19/22 11/22/23 Unknown History empagliflozin 25 mg tablet 25 mg PO DAILY 07/19/22 11/22/23 11/22/23 History (Jardiance) glipizide 5 mg tablet, extended 5 mg PO DAILY 07/19/22 11/22/23 11/22/23 History release 24 hr spironolactone 25 mg tablet 25 mg PO DAILY 07/19/22 11/22/23 11/22/23 History umeclidinium 62.5 mcg-vilanterol 1 inh inhalation DAILY 07/19/22 11/22/23 Unknown History 25 mcg/actuation powdr for inhalation (Anoro Ellipta) Oscillococcinum See Rx Instructions .Route .COMPLEX 11/22/23 11/22/23 Unknown History amlodipine 10 mg tablet 10 mg PO DAILY 11/22/23 11/22/23 11/22/23 History fluticasone fur. 100 mcg-umeclid 1 ea inhalation BID 11/22/23 11/22/23 Unknown History 62.5 mcg-vilant 25 mcg inhalat.powder (Trelegy Ellipta) fluticasone propionate 50 1 spray intranasal BID 11/22/23 11/22/23 11/22/23 History mcg/actuation nasal spray,suspension lisinopril 40 mg tablet 40 mg PO DAILY 11/22/23 11/22/23 11/22/23 History metoprolol succinate 50 mg 50 mg PO DAILY 11/22/23 11/22/23 11/22/23 History tablet,extended release 24 hr potassium chloride 10 mEq 10 meq PO EVERY OTHER DAY 11/22/23 11/22/23 Unknown History tablet,extended release Allergies Allergy/AdvReac Type Severity Reaction Status Date / Time aspirin Allergy Unknown Verified 08/13/24 16:30 PFSH Acute 2 PFSH: Medical History (Updated 08/13/24 @ 21:58 by Haja Batista MD) COPD (chronic obstructive pulmonary disease) Lung mass Surgical History H/O hernia repair Family History Denies family history of Clotting disorder Bleeding disorder Social History (Updated 08/13/24 @ 21:51 by Haja Batista MD) Smoking and tobacco/nicotine status: current every day tobacco/nicotine user Alcohol intake: never Substance/Drug Use: never Lives independently: Yes Household members: none Vitals/I&O/Wt Last Vital Signs Temp 98.3 F 08/13/24 16:21 Pulse 91 08/13/24 18:02 Resp 20 H 08/13/24 18:02 BP 102/49 08/13/24 18:02 Pulse Ox 95 08/13/24 18:02 O2 Del Method Room Air 08/13/24 18:02 Weight last 48 hrs Weight 77.564 kg Physical Exam 2 Const: COMMON NORMALS: patient oriented x3 and alert GENERAL APPEARANCE: c ooperative ORIENTATION/CONSCIOUSNESS: Yes awake HENMT: COMMON NORMALS: oropharynx normal Neck/C-Spine: COMMON NORMALS: no JVD Resp: COMMON NORMALS: normal respiratory effort and clear to auscultation bilaterally AUSCULTATION: clear to auscultation bilaterally Cardio: COMMON NORMALS: no JVD, regular rhythm, S1 normal heart sound present, S2 normal heart sound present and No murmurs present (Cardio) RHYTHM: regular rhythm HEART SOUNDS: S1 normal heart sound present and S2 normal heart sound present GI: COMMON NORMALS: Soft to palpation and non-tender PALPATION: Yes Soft to palpation Extremity: COMMON NORMALS: no joint enlargement and no pedal edema Neuro: COMMON NORMALS: patient oriented x3 and moves all extremities S ENSORIUM/ORIENTATION: Yes alert Skin: OTHER: Scattered psoriasis lesions and patches Data 08/13/24 20:01 08/13/24 20:01 A&P Assessment and plan (1) Acute renal insufficiency: Reviewed vitals, CBC, CMP, lipase, ER note, discussed with ER provider. BUN 81, creatinine 1.6. Potassium 5.4, chloride 108, bicarb 12. SLOAN complicated by metabolic acidosis possible acute metabolic encephalopathy, he is not able to provide good history, does not recall his conditions or medications well.. With hypovolemia, hypotension free presentation. Possibly combination of prerenal with hypovolemia, hypotension, as well as possible concomitant toxicity with lisinopril, he states occasionally takes Aleve. Received fluid challenge 1 L in ER, continue fluid resuscitation with LR due to hypovolemia. Monitor for risk of fluid overload with IV fluids. Reassess volume status, monitor blood pressure. Hold off antihypertensives. Hold off oral hypoglycemics. Check CK with possible statin toxicity. Check urine sodium, urine creatinine. (2) Hyperkalemia: Hold potassium supplement, spironolactone, lisinopril. Low potassium diet. IV fluid challenge. Recheck electrolytes. (3) Diarrhea: Diarrhea for close about a week, watery, cramping nausea, no vomiting. Describes dark stools. Will check Hemoccult, check WBC. Check C. difficile, stool Salmonella, Shigella, complete factor. Occasionally takes Aleve. Will give PPI for now. Recheck blood counts. SCD only for DVT prophylaxis for now, monitor for recurrence or worsening melena, acute blood loss anemia, etc. (4) Hypovolemia: Hypotensive in clinic blood pressure in 80s, hold antihypertensives. Received fluid bolus, continue IV hydration due to hypovolemia, dehydration. Recheck volume status. Monitor blood pressures. (5) Metabolic acidosis: Acute kidney injury with comorbidity with metabolic acidosis, bicarb down to 12, with hyperkalemia, possibly also secondary to diarrhea. Reassess chemistry. With diabetes check serum ketone, UA for urine ketone. Check VBG. Plan Smoking addiction: Discussed smoking cessation for 5 minutes, he has been having a difficult time quitting. He does understand that he needs to quit, especially with increased risk of cardiovascular disease with underlying psoriasis. He will keep trying. He is agreeable to nicotine replacement while in the hospital. Psoriasis: With diffuse lesions in patches over his body. He states had tried a medication before but could not tolerated due to allergy. Follow-up with dermatology. DM: Hold oral hypoglycemics with SLOAN. Monitor POC glucose. Sliding scale insulin. Possible mild cognitive dysfunction versus acute encephalopathy: He is not a good historian, unable to list his medical conditions, medications. Lives by himself. States has been forgetful. Currently possible acute metabolic encephalopathy with SLOAN, metabolic acidosis. Treat underlying condition as above. Reassess mental status. Follow-up with primary provider for additional cognitive assessment, consider referral to neurology. Difficult social situation: He does not have social support, his sister who lives nearby has . Closest relatives are in [place]. He also states that his memory has not been the best. He cannot recall the names of his medications or medical conditions very well. Attestations 2 Medical Necessity Statement*: Place in observation for additional assessment and management of SLOAN, hyperkalemia, and gentleman with diarrhea for 1 week, dark stools, assess for GI bleeding, with hypovolemia, dehydration, with underlying diabetes, difficult social situation. and High MDM includes amount and/or complexity of data reviewed/ordered [ previous or external records, resulted lab(s)/test(s), ordered lab(s)/test(s) and other healthcare professional discussion] and described risk of complication, morbidity or mortality of management as documented Diagnoses Acute renal insufficiency N28.9 Hyperkalemia E87.5 Diarrhea R19.7 Hypovolemia E86.1 Metabolic acidosis E87.20
[2024-08-13] MEDS: sodium chloride 0.9% 1,000 ML 999 ML IV (22:04)
--- NOTE | 2024-08-13 22:09 | PC.NURSE ---
Report called to Sarai AQUINO on MS. All questions and concerns were addressed at time of report.
[2024-08-13 22:10] VITALS: BP 130/78; PULSE 78
[2024-08-13 22:27] LABS: ABG PCO2 32.7 mmHg (35-45); Alveolar-Arterial Oxygen Gradi 4.4 mmHg (5-10); Arterial Blood Gas Hematocrit 49.8 % (42-52); Base Excess ABG -14.8 mmol/L (-2.0-2.0); Blood Gas Operator Identificat BUSJA; Blood Gas Sample Site Brachial, left; Blood Gas Sample Type Arterial; Carboxyhemoglobin 1.9 %THgb (0.4-20.1); HCO3 ABG 12.3 mmol/L (22-26); Ionized Calcium Level - ABG 1.2 mmol/L (1.1-1.4); Methemoglobin 0.7 % (0.4-1.5); Oxygen Device ROOM AIR; Oxygen Saturation ABG 95.5; PO2 ABG 74.7 mmHg (80.0-100.0); PO2 FiO2 Ratio Arterial Blood 355; Potassium Level - ABG 4.8 mmol/L (3.5-5.0); Total Hemoglobin 16.2 g/dL (14-18)
[2024-08-13 22:29] LABS: ABG PH Result 7.18 (7.35-7.45)
[2024-08-13 22:47] LABS: Ketone (Acetest) Serum Negative (Negative)
[2024-08-13 22:56] LABS: Lactic Sepsis W/Reflex 1.1 mmol/L (0.5-2.2)
[2024-08-13 23:20] VITALS: BP 110/59; PULSE 87; O2SAT 95
[2024-08-14] VITALS (34 sets, daily range): BP systolic 102–144; BP diastolic 18–67; PULSE 72–94; RESP 15–32; TEMP 36.6–36.9; O2SAT 94–99; BMI 25.5
--- NOTE | 2024-08-14 00:01 | PC.NURSE ---
Patient report was called to Niurka AQUINO in ICU. All questions and concerns were addressed in report.
[2024-08-14 00:32] LABS: Glucose Point of Care 99 mg/dL (70-110)
[2024-08-14 00:49] LABS: Bilirubin Urine Negative (Negative); Blood Urine Negative (Negative); Glucose Urine UA Negative (Normal); Ketones Urine Negative (Negative); Leukocyte Esterase Urine Negative (Negative); Nitrate Urine Negative (Negative); Protein Urine 1+ (Negative); Specific Gravity, Urine 1.017 (1.005-1.030); Urine Appearance Clear (CLEAR); Urine Color Yellow (Yellow); pH Urine 5.5 (5-7)
[2024-08-14 00:54] LABS: Add Urine Microscopic? YES; Bacteria Urine None Seen /hpf; Hyaline Casts Urine 11.16 /lpf; RBC Urine 0-2 /hpf (0-2); Squamous Epithelial Cell Urine 0-5 /hpf (0-5); WBC Urine 0-5 /hpf (0-5)
[2024-08-14 01:00] LABS: Urine Creatinine 142 mg/dL (39-259); Urine Random Sodium 25 mmol/L
[2024-08-14 01:03] LABS: UA Slide Review UA Slide Review Perf
[2024-08-14] MEDS: dextrose 5%-sod chloride 0.45% 1,000 ML 150 ML IV ×2 (01:15→07:53)
[2024-08-14] MEDS: pantoprazole 40 mg SDV IVP ×2 (01:19→08:25)
--- NOTE | 2024-08-14 01:41 | PC.NURSE ---
Arrival to ICU 9: Pt arrived to ICU 9 @0020 from ER. Continuos cardiac monitoring continued. Skin Assessment: Generalized psoriasis noted. Sites yahir. No open wounds noted. BG 99: Dr. Batista called at 0037 to notify of low BG/insuin drip order. New order to start dextrose containing fluids, wait 30 minutes and recheck BG.
[2024-08-14 02:04] LABS: Glucose Point of Care 115 mg/dL (70-110)
[2024-08-14 02:04] LABS: Glucose Point of Care 106 mg/dL (70-110)
[2024-08-14 02:05] LABS: Base Excess VBG -14.6 mmol/L (-3.0-3.0); Blood Gas Sample Site Not specified; Blood Gas Sample Type Venous; HCO3 VBG 12.9 mmol/L (24-28); PCO2 VBG 35.4 mmHg (41-51); PO2 VBG 55.6 mmHg (25-40); Venous Blood Gas Hematocrit 50.9 % (42-52)
[2024-08-14 02:06] LABS: pH VBG 7.17 (7.32-7.42)
[2024-08-14] MEDS: INSULIN REGULAR IN 0.9 % NACL 100 UNIT/100 ML BAG IV (02:13)
--- NOTE | 2024-08-14 02:14 | PC.NURSE ---
Insulin Drip: Dr. Batista called at 0209 to update on BG of 115. New order to start insulin drip @1unit/hr. See 'MAR' for start time and titrations.
[2024-08-14 02:19] LABS: Creatine Phosphokinase 58 U/L (39-308); Magnesium 1.5 mg/dL (1.7-2.3)
[2024-08-14] MEDS: magnesium sulfate premix 2 GM/50 ML PIGGYBACK IV (02:55)
[2024-08-14 03:18] LABS: Glucose Point of Care 111 mg/dL (70-110)
[2024-08-14 04:16] LABS: Glucose Point of Care 109 mg/dL (70-110)
[2024-08-14 05:20] LABS: Glucose Point of Care 118 mg/dL (70-110)
[2024-08-14 05:55] LABS: Basophils # 0.1 10^3/uL (0.0-0.1); Basophils % 0.7 %; Eosinophils # 0.2 10^3/uL (0.0-0.8); Eosinophils % 2.4 %; Hematocrit 50.2 % (37-53); Lymphocytes # 1.2 10^3/uL (0.8-4.8); Lymphocytes % 15.3 %; Mean Corpuscular HGB Conc 32.9 g/dL (30-55); Mean Corpuscular Hemoglobin 33.7 pg (27-33); Mean Corpuscular Volume 102.4 fl (82-101); Mean Platelet Volume 9.9 fL (7.4-10.4); Monocytes # 0.9 10^3/uL (0.2-0.9); Monocytes % 12.1 %; Neutrophils # 5.25 10^3/uL (1.8-7.7); Neutrophils % 69.2 %; Nucleated Red Blood Cells % 0 %; Platelet Count 210 10^3/cmm (157-399); Red Cell Distribution Width 13.2 % (12.1-15.1); White Blood Count 7.58 10^3/uL (3.29-11.43)
[2024-08-14 06:23] LABS: Alanine Aminotransferase 10 U/L (0-41); Alkaline Phosphatase 72 U/L (40-130); Anion Gap 13.5 (5-19); Aspartate Amino Transferase 12 U/L (0-40); Blood Urea Nitrogen 71 mg/dL (8-23); Calcium 8.1 mg/dL (8.5-10.5); Carbon Dioxide 16 mmol/L (22-29); Chloride 113 mmol/L (98-107); Creatinine Clr Calc Pharmacy 57.5125; Globulin 2.6 g/dL (1.3-4.6); Glomerular Filtration Rate 55.4 mL/min (90-130); Glucose 128 mg/dL (65-115); Magnesium 2.2 mg/dL (1.7-2.3); Osmolality Calculated 308 mOsm/kg (285-295); Potassium 4.5 mmol/L (3.5-5.1); Sodium 138 mmol/L (136-145); Total Protein 6.6 g/dL (6.6-8.7)
[2024-08-14 06:29] LABS: Glucose Point of Care 107 mg/dL (70-110)
[2024-08-14 07:07] LABS: Glucose Point of Care 112 mg/dL (70-110)
[2024-08-14] MEDS: nicotine 21 mg Patch 1 PATCH TRANSDERMA (08:25)
[2024-08-14 08:51] LABS: Glucose Point of Care 105 mg/dL (70-110)
[2024-08-14 10:28] LABS: Glucose Point of Care 131 mg/dL (70-110)
[2024-08-14 10:28] LABS: Glucose Point of Care 106 mg/dL (70-110)
[2024-08-14 11:08] LABS: Glucose Point of Care 128 mg/dL (70-110)
[2024-08-14 12:53] LABS: C.Diff PCR (Lab) NEGATIVE (Negative)
[2024-08-14 13:05] LABS: Albumin Level 3.5 g/dL (3.5-5.2); Alkaline Phosphatase 71 U/L (40-130); Blood Urea Nitrogen 59 mg/dL (8-23); Calcium 8.2 mg/dL (8.5-10.5); Carbon Dioxide 11 mmol/L (22-29); Chloride 112 mmol/L (98-107); Creatinine Clr Calc Pharmacy 74.7663; Glucose 132 mg/dL (65-115); Osmolality Calculated 286 mOsm/kg (285-295); Sodium 129 mmol/L (136-145); Total Bilirubin 1.1 mg/dL (0.15-1.2); Total Protein 6.5 g/dL (6.6-8.7)
[2024-08-14 13:08] LABS: Alanine Aminotransferase 9 U/L (0-41); Anion Gap 11.3 (5-19); Aspartate Amino Transferase 23 U/L (0-40); Potassium 5.3 mmol/L (3.5-5.1)
--- OUTSIDE RECORDS SUMMARY | 2024-08-14 13:23 | XMS_ITS | Continuity of Care Document ---
Author Name Unknown Organization [facility] Address [address] [place] [address]- Care Team Providers Care Care Process Manager Name Role Phone Snowden ETCHER ENAMELINGMarcelina Primary Care Physician Encounter [employer] Number [id number] Date(s): 08/09/24 - 08/09/24 [facility] [address], [place] [address] Discharge Disposition: Left Without Being Seen Attending Physician: Yris, Not On File Doctor Allergies, Adverse Reactions, Alerts Substance Reaction Severity Status metFORMIN Loose stools Moderate Active Assessment and Plan Future Appointments Appointment Date:10/14/2024 03:00:00 PM Scheduled Provider:Snowden Marcelina LING Location:[facility] Appointment Type:Established Patient Immunizations Given and Recorded Vaccine Date Status Refusal Reason influenza virus vaccine 08/18/23 Recorded influenza virus vaccine 08/25/22 Recorded influenza virus vaccine 08/11/20 Recorded influenza virus vaccine 08/13/19 Recorded COVID-19 Pfizer Bivalent Booster 5-11y 10/01/22 Re corded COVID-19 SARS-CoV-2 mRNA Pfizer (adult) 05/30/22 R ecorded COVID-19 SARS-CoV-2 mRNA Pfizer (adult) 11/23/21 R ecorded COVID-19 SARS-CoV-2 mRNA Pfizer (adult) 11/02/21 R ecorded Tdap-ADULT/ADOL tetanus/diphth/pertuss,a 10/20/21 Given Pneumovax 23 pneumococcal 23-valent 10/20/21 Given Prevnar 13 pneumococcal 13-valent 10/07/17 Recorde d Medications Albuterol (Eqv-ProAir HFA) 90 mcg/inh inhalation aerosol 1 puff, Inhalation, Q4H, NEEDED FOR WHEEZING, # 8.5 g, 30, Refill(s) 4, Route to Pharmacy Electronically, Pharmacy: [facility], PENDING SALE TO [facility]ID-[id number], INHALE ONE PUFFS EVERY FOUR HOURS NEEDED FOR WHEEZING, 79.91, 04/29/24 9:42:00 CDT, kg, W... Start Date: 05/15/24 Status: Ordered amLODIPine 10 mg oral tablet = 1 tab, By mouth, Daily, MUST SEE DR CABALLERO 07/25/24 FOR REFILLS, # 30 tab, Refill(s) 0, Pharmacy: [facility], PENDING SALE TO [facility]_ID-[id number], 1 tab By mouth Daily,Instr:MUST SEE DR CABALLERO 07/25/24 FOR REFILLS, 79.91, 04/29/24 9:42:00 CDT, kg, Weight (kg) (C... 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 ALKYLATION, kg, Weight (kg) (Clinical) Start Date: 12/20/23 Status: Ordered atorvastatin 40 mg oral tablet = 1 tab, By mouth, Daily, # 90 tab, Refill(s) 2, Pharmacy: [facility], PENDING SALE TO [facility]_ID-[id number], TAKE ONE TABLET BY MOUTH DAILY, 79.91, 04/29/24 9:42:00 CDT, kg, Weight (kg) (Clinical) Start Date: 06/13/24 Status: Ordered clopidogrel 75 mg oral tablet 75 Unknown, Oral, Refill(s) 0 Start Date: 01/10/24 Status: Ordered fluticasone 50 mcg/inh nasal spray See Instructions, SPRAY ONCE INTO BOTH NOSTRILS TWICE DAILY , # 16 g, 30, Refill(s) 2, Route to Pharmacy Electronically, Pharmacy: [facility], PENDING SALE TO [facility]_ID-[id number], Instructions Replace Required Details, SPRAY ONCE INTO BOTH NOSTRILS TWICE DAILY... Start Date: 05/15/24 Status: Ordered glipiZIDE 10 mg oral tablet, extended release 10 mg, By mouth, Daily, # 90 tab, Refill(s) 3, Pharmacy: [facility], PENDING SALE TO [facility]_ID-[id number], 10mg By mouth Daily, 82.27, 07/11/24 15:01:00 CDT, kg, Weight (kg) (Clinical) Start Date: 07/15/24 Status: Ordered Jardiance 25 mg oral tablet 25 mg = 1 tab, By mouth, Daily, # 90 tab, Refill(s) 2, Pharmacy: [facility], [id number], 1 tab By mouth Daily, 82.27, 07/11/24 15:01:00 CDT, kg, Weight (kg) (Clinical) Start Date: 07/11/24 Status: Ordered lisinopril 40 mg oral tablet = 1 tab, By mouth, Daily, # 90 tab, Refill(s) 0, Pharmacy: [facility], PENDING SALE TO [facility]_ID-[id number], TAKE ONE TABLET BY MOUTH DAILY, 75.45, 01/10/24 14:14:00 REFINERY OPERATOR ALKYLATION, kg, Weight (kg) (Clinical) Start Date: 03/19/24 Status: Ordered Metoprolol Succinate ER 50 mg oral tablet, extended release = 1 tab, By mouth, Daily, # 90 tab, Refill(s) 1, Pharm[facility]: [facility], [id number], TAKE ONE TABLET BY MOUTH ONCE DAILY, 79.91, 04/29/24 9:42:00 CDT, kg, Weight (kg) (Clinical) Start Date: 06/11/24 Status: Ordered Potassium Chloride (Niv-Ywue-Kjc 10) 10 mEq oral tablet, extended release = 1 tab, By mouth, Q2D, # 45 tab, Refill(s) 2, Pharmacy: [facility], [id number], PLEASE CANCEL Rx generated for #180!!!, 1 tab By mouth Q2D, 73.64, 11/30/23 16:13:00 REFINERY OPERATOR ALKYLATION, kg, Weight (kg) (Clinical) Start Date: 12/20/23 Status: Ordered spironolactone 25 mg oral tablet = 1 tab, By mouth, Daily, # 90 tab, Refill(s) 2, Pharmacy: [facility], [facility]-[id number], TAKE ONE TABLET BY MOUTH DAILY, 79.91, 04/29/24 9:42:00 CDT, kg, Weight (kg) (Clinical) Start Date: 06/13/24 Status: Ordered Trelegy Ellipta 100 mcg-62.5 mcg-25 mcg/inh inhalation powder 1 puff, Inhalation, Daily, # 3 EA, Refill(s) 2, Route to Pharmacy Electronically, Pharmacy: [facility] (Now [facility]), [facility]ID-[id number], 1 puff Inhalation Daily, 79.91, 04/29/24 9:42:00 CDT, kg, Weight (kg) (Clinical) Start Date: 04/29/24 Status: Ordered Problem List Condition Confirmation Course Effective Dates Status H ealth Status Informant Pulmonary air trapping Confirmed Active Asbestos-induced pleural fibrosis Confirmed Active Nonischemic cardiomyopathy Confirmed Active Chronic respiratory failure Confirmed Active TAMAYO (dyspnea on exertion) Confirmed Active HTN (hypertension) Confirmed Active Mass of upper lobe of right lung Confirmed Active Antiplatelet or antithrombotic long-term use Confirmed Active Encounter for screening for lung cancer Confirmed Active Psoriasis Confirmed Active 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 Tobacco use Confirmed Active Type 2 diabetes mellitus Confirmed Active Procedures Procedure Date Related Diagnosis Body Site Status cataract right eye Comple jim hernia repair Completed Vital Signs Most recent to oldest [Reference Range]: 1 2 3 Blood Pressure 116/70mmHg (08/09/24 3:42 PM) 113/74mmHg (08/09/24 2:39 PM) 105/69mmHg (08/09/24 1:35 PM) Height (inches) (Clinical) 69.5 in (08/09/24 11:22 AM) Weight (kg) (Clinical) 79.2 kg (08/09/24 11:22 AM) BMI (Clinical) 25.4 kg/m2 (08/09/24 11:22 AM) Social History Social History Type Response Smoking Status Current every day sm oker; Smokeless tobacco use: Never; Has the patient smoked in the last 365 days, even once? Yes; Type: Cigarettes; Tobacco use per day: 3 Packs entered on: 11/30/23 Sex Male Patient Care team information Care Team Personnel Name: Snowden ETCHER ENAMELING, Marcelina Position: XYF-[id number]-Asmmxctrmg Member Role: Primary Care Physician Address: Address: [address] [place] [address]- Care Team Related Persons Name: NONE, GIVEN Name: AALIYAH MEHTA Name: SHAYNA MEHTA Address: home [
--- OUTSIDE RECORDS SUMMARY | 2024-08-14 13:23 | XMS_ITS | Continuity of Care Document ---
Author Name Unknown Organization [facility] Address [address] [place] [address]- Care Team Providers Care Shipfitter Apprentice Name Role Phone Snowden Marcelina LING Primary Care Physician [phone] Encounter [employer] Number [id number] Date(s): 06/17/24 - 06/17/24 [facility] [address] [facility] [place] [address] Discharge Disposition: Against Medical Advise Attending Physician: Yris, Not On File Doctor Allergies, Adverse Reactions, Alerts Substance Reaction Severity Status metFORMIN Loose stools Moderate Active Assessment and Plan Future Appointments Appointment Date:07/11/2024 03:00:00 PM Scheduled Provider:Snowden Marcelina LING Location:[facility] Appointment Type:Established Patient Appointment Date:07/25/2024 03:30:00 PM Scheduled Provider:Dior Caballero MD Location:-[facility] Appointment Type:Established Patient Immunizations Given and Recorded [...] Refill(s) 4, Route to Pharmacy Electronically, Pharmacy: [facility], [facility]ID-[id number], INHALE ONE PUFFS EVERY FOUR HOURS NEEDED FOR WHEEZING, 79.91, 04/29/24 9:42:00 CDT, kg, W... Start Date: 05/15/24 Status: Ordered amLODIPine 10 mg oral tablet = 1 tab, By mouth, Daily, MUST SEE DR CABALLERO 07/25/24 FOR REFILLS, # 30 tab, Refill(s) 0, Pharmacy: [facility], [facility]ID-[id number], 1 tab By mouth Daily,Instr:MUST SEE DR CABALLERO 07/25/24 FOR REFILLS, 79.91, 04/29/24 9:42:00 CDT, kg, Weight (kg) (C... 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, kg, Weight (kg) (Clinical) Start Date: 12/20/23 Status: Ordered atorvastatin 40 mg oral tablet = 1 tab, By mouth, Daily, # 90 tab, Refill(s) 2, Pharmacy: [facility], [facility]ID-[id number], TAKE ONE TABLET BY MOUTH DAILY, 79.91, 04/29/24 9:42:00 CDT, kg, Weight (kg) (Clinical) Start Date: 06/13/24 Status: Ordered clopidogrel 75 mg oral tablet 75 Unknown, Oral, Refill(s) 0 Start Date: 01/10/24 Status: Ordered fluticasone 50 mcg/inh nasal spray See Instructions, SPRAY ONCE INTO BOTH NOSTRILS TWICE DAILY , # 16 g, 30, Refill(s) 2, Route to Pharmacy Electronically, Pharmacy: [facility], [facility]ID-[id number], Instructions Replace Required Details, SPRAY ONCE INTO BOTH NOSTRILS TWICE DAILY... Start Date: 05/15/24 Status: Ordered glipiZIDE 5 mg oral tablet, extended release = 1 tab, By mouth, Daily, # 90 tab, Refill(s) 2, Pharmacy: [facility], [facility]ID-[id number], TAKE ONE TABLET BY MOUTH DAILY, 79.91, 04/29/24 9:42:00 CDT, kg, Weight (kg) (Clinical) Start Date: 06/13/24 Status: Ordered Jardiance 25 mg oral tablet See Instructions, TAKE ONE TABLET BY MOUTH EVERY DAY, # 30 tab, Refill(s) 2, Pharmacy: [facility], [facility]ID-[id number], Instructions Replace Required Details, TAKE ONE TABLET BY MOUTH EVERY DAY, 72.73, 04/26/23 8:37:00 CDT, kg, Weight (kg) (Cli... Start Date: 05/29/23 Status: Ordered lisinopril 40 mg oral tablet = 1 tab, By mouth, Daily, # 90 tab, Refill(s) 0, Pharmacy: [facility], [facility]ID-[id number], TAKE ONE TABLET BY MOUTH DAILY, 75.45, 01/10/24 14:14:00 RADIAL ROUTER OPERATOR, kg, Weight (kg) (Clinical) Start Date: 03/19/24 Status: Ordered Metoprolol Succinate ER 50 mg oral tablet, extended release = 1 tab, By mouth, Daily, # 90 tab, Refill(s) 1, Pharmacy: [facility], [facility]ID-[id number], TAKE ONE TABLET BY MOUTH ONCE DAILY, 79.91, 04/29/24 9:42:00 CDT, kg, Weight (kg) (Clinical) Start Date: 06/11/24 Status: Ordered Ozempic 2 mg/3 mL (0.25 mg or 0.5 mg dose) subcutaneous solution 0.25 mg, SUBQ, QW (once a week), # 4 EA, Refill(s) 0, Pharmacy: [facility], [id number], 0.25 mg SUBQ QW (once a week), 75.45, 01/10/24 14:14:00 RADIAL ROUTER OPERATOR, kg, Weight (kg) (Clinical) Start Date: 04/17/24 Status: Ordered Potassium Chloride (Sis-Suzt-Kny 10) 10 mEq oral tablet, extended release = 1 tab, By mouth, Q2D, # 45 tab, Refill(s) 2, Pharmacy: [facility], [facility]ID-[id number], PLEASE CANCEL Rx generated for #180!!!, 1 tab By mouth Q2D, 73.64, 11/30/23 16:13:00 RADIAL ROUTER OPERATOR, kg, Weight (kg) (Clinical) Start Date: 12/20/23 Status: Ordered spironolactone 25 mg oral tablet = 1 tab, By mouth, Daily, # 90 tab, Refill(s) 2, Pharmacy: [facility], [facility]ID-[id number], TAKE ONE TABLET BY MOUTH DAILY, 79.91, 04/29/24 9:42:00 CDT, kg, Weight (kg) (Clinical) Start Date: 06/13/24 Status: Ordered Trelegy Ellipta 100 mcg-62.5 mcg-25 mcg/inh inhalation powder 1 puff, Inhalation, Daily, # 3 EA, Refill(s) 2, Route to Pharmacy Electronically, Pharmacy: [facility] ([id number], 1 puff Inhalation Daily, 79.91, 04/29/24 9:42:00 CDT, kg, Weight (kg) (Clinical) Start Date: 04/29/24 Status: Ordered Trelegy Ellipta 100 mcg-62.5 mcg-25 mcg/inh inhalation powder 1 puff, Inhalation, Daily, # 60 EA, 30, Refill(s) 0, Route to Pharmacy Electronically, Pharmacy: [facility], [facility]ID-[id number], INHALE ONE PUFF BY MOUTH DAILY, 75.45, 01/10/24 14:14:00 RADIAL ROUTER OPERATOR, kg, Weight (kg) (Clinical) Start Date: 03/22/24 Status: Ordered Problem List Condition Confirmation Course [...] hypoxia Confirmed Active Tobacco use Confirmed Active Procedures Procedure Date Related Diagnosis Body Site Status cataract right eye Comple jim hernia repair Completed Results Most recent to oldest [Reference Range]: 1 Bedside Glucose 411 mg/dL 1 *CRIT* (06/17/24 2:01 PM) 1Result Comment: Notify RN/DR Performed at:[address], [address] Reference Ranges: Age 0 - 24 hours: 45 - 115 mg/dL Age 24 hours - 30 days: 55 - 115 mg/dL Age > 30 days: 70 - 100 mg/dL Critical Results Requiring Immediate Notification: Age <72 Hours: <40 or >350 mg/dL Age >72 Hours: <50 or >400 mg/dL Vital Signs Most recent to oldest [Reference Range]: 1 2 Blood Pressure 121/68mmHg (06/17/24 4:11 PM) 126/60mmHg (06/17/24 1:58 PM) Height (inches) (Clinical) 69.5 in (06/17/24 1:53 PM) Weight (kg) (Clinical) 81.7 kg (06/17/24 1:53 PM) BMI (Clinical) 26.2 kg/m2 (06/17/24 1:53 PM) Social History Social History Type Response Smoking Status Current every day sm oker; Smokeless tobacco use: Never; Has the patient smoked in the last 365 days, even once? Yes; Type: Cigarettes; Tobacco use per day: 3 Packs entered on: 11/30/23 Sex Male Patient Care team information Care Team Personnel Name: Snowden Marcelina LING Position: FUA-[id number] Member Role: Primary Care Physician Address: Address: [address] [place] [address]- Care Team Related Persons Name: NONE, GIVEN Name: AALIYAH MEHTA Name: SHAYNA MEHTA Address: home [
[2024-08-14 13:27] LABS: Estmated Average Glucose 197; Hemoglobin A1C 8.5 % (4.0-6.0)
--- NOTE | 2024-08-14 14:15 | CTR_ITS ---
PROCEDURE INFORMATION: Exam: CT Chest With Contrast; Diagnostic Exam date and time: 08/14/2024 3:07 PM Age: 64 years old Clinical indication: Abdominal tenderness; Angina; Prior surgery; Surgery date: 6+ months; Surgery type: Hernia; Additional info: R/O infectious TECHNIQUE: Imaging protocol: Diagnostic computed tomography of the chest with contrast. Radiation optimization: All CT scans at this facility use at least one of these dose optimization techniques: automated exposure control; mA and/or kV adjustment per patient size (includes targeted exams where dose is matched to clinical indication); or iterative reconstruction. Contrast material: OMNI 350; Contrast volume: 100 ml; Contrast route: INTRAVENOUS (IV); COMPARISON: CR XR chest 1V portable [id number] 11/22/2023 2:38 PM RADIATION DOSE METRICS: Total DLP (mGy-cm): 520 FINDINGS: Lungs: There is mild upper lung predominant centrilobular emphysema. There is subsegmental atelectasis in the inferior right lower lobe. There is multifocal ill-defined coarse reticular opacity in the lateral right upper lobe. Pleural spaces: There is right posterior costal pleural thickening and calcification. There is no pleural effusion or pneumothorax. Heart: Heart size is normal. There is no pericardial effusion. Coronary arteries: There is moderate coronary artery calcification. Lymph nodes: There is no mediastinal or hilar lymphadenopathy. Vasculature: There is mild aortic atherosclerotic disease. Bones/joints: Bones are unremarkable. Soft tissues: The extrathoracic soft tissues are unremarkable. COMMENTS: The presence of pulmonary emphysema on CT is an independent risk factor for lung cancer. In the absence of a history or active diagnosis of lung cancer, it is recommended that this patient with emphysema be evaluated for enrollment in a low dose CT lung cancer screening program. PROCEDURE INFORMATION: Exam: CT Abdomen And Pelvis With Contrast Exam date and time: 08/14/2024 3:07 PM Age: 64 years old Clinical indication: Abdominal tenderness; Angina; Prior surgery; Surgery date: 6+ months; Surgery type: Hernia; Additional info: R/O infectious TECHNIQUE: Imaging protocol: Computed tomography of the abdomen and pelvis with contrast. Radiation optimization: All CT scans at this facility use at least one of these dose optimization techniques: automated exposure control; mA and/or kV adjustment per patient size (includes targeted exams where dose is matched to clinical indication); or iterative reconstruction. Contrast material: OMNI 350; Contrast volume: 100 ml; Contrast route: INTRAVENOUS (IV); COMPARISON: CT abdomen pelvis w con* [id number] 05/06/2022 7:03 AM RADIATION DOSE METRICS: Total DLP (mGy-cm): 620 FINDINGS: Liver: The liver is normal. Gallbladder and biliary ducts: The gallbladder is normal. There is no biliary dilation. Pancreas: There is moderate atrophy of the pancreas. Spleen: The spleen is unremarkable. Adrenal glands: The adrenal glands are unremarkable. Kidneys and ureters: The kidneys are unremarkable. No hydronephrosis or stones. No ureteral dilation. Stomach and bowel: The stomach is distended with ingested material. The gastric wall is thin. The small bowel is nondilated. The colon is intermittently distended with stool, gas and fat density fluid. There is no colonic wall thickening, pericolonic edema, or evidence of high-grade obstruction. Appendix: The appendix is not visible. Intraperitoneal space: There is no free air or significant intraperitoneal free fluid. Vasculature: There is moderate aortic atherosclerotic disease. The portal, splenic and superior mesenteric veins are patent. Lymph nodes: There is no lymphadenopathy in the retroperitoneum, mesentery, pelvis or inguinal regions. Urinary bladder: The urinary bladder is unremarkable. Reproductive: The prostate and seminal vesicles are unremarkable. Bones/joints: There is mild degenerative disease in the lumbar spine. The pelvis and hips are unremarkable. Soft tissues: The abdominal wall is intact. CT/CT chest abdpel w/*[id number] IMPRESSION: 1. Multifocal opacity in the right upper lobe. Probable scarring. Infection is not excluded. 2. Right posterior costal pleural thickening and calcification. Possible asbestos related pleural disease or sequelae of prior pleurodesis. 3. Mild centrilobular emphysema. 4. Incidental findings above. IMPRESSION: 1. Intermittently gas and stool distended colon without other evidence of inflammation. Possible colonic ileus. 2. Incidental findings above.
--- NOTE | 2024-08-14 14:17 | P.PN_ITS ---
Subjective 2 Subjective: Seen this morning. States he does not take insulin at home and instead takes glipizide and Jardiance. He says he is been having diarrhea for the last few days. Patient is definitely a poor historian because could not tell me more than the above. States he is feeling okay right now. Has no other complaints. Stool lactoferrin is positive. Vitals/I&O/Wt Last Vital Signs Temp 97.8 F 08/14/24 06:15 Pulse 75 08/14/24 12:00 Resp 19 H 08/14/24 12:00 BP 122/57 08/14/24 12:00 Pulse Ox 95 08/14/24 12:00 O2 Del Method Room Air 08/14/24 12:00 08/13/24 08/14/24 08/14/24 22:59 06:59 14:59 Intake Total 1716.516 / 1716.516 339.684 / 339.684 Output Total 750 / 750 400 / 400 Balance 966.516 / 966.516 -60.316 / -60.316 Weight last 48 hrs Weight 76.839 kg Weight 76.34 kg Weight 77.564 kg Physical Exam 2 Const: COMMON NORMALS: patient oriented x3 and alert GENERAL APPEARANCE: c ooperative ORIENTATION/CONSCIOUSNESS: Yes awake HENMT: COMMON NORMALS: oropharynx normal Neck/C-Spine: COMMON NORMALS: no JVD Resp: COMMON NORMALS: normal respiratory effort and clear to auscultation bilaterally AUSCULTATION: clear to auscultation bilaterally Cardio: COMMON NORMALS: no JVD, regular rhythm, S1 normal heart sound present, S2 normal heart sound present and No murmurs present (Cardio) RHYTHM: regular rhythm HEART SOUNDS: S1 normal heart sound present and S2 normal heart sound present GI: COMMON NORMALS: Soft to palpation and non-tender PALPATION: Yes Soft to palpation Extremity: COMMON NORMALS: no joint enlargement and no pedal edema Neuro: COMMON NORMALS: patient oriented x3 and moves all extremities S ENSORIUM/ORIENTATION: Yes alert Skin: OTHER: Scattered psoriasis lesions and patches Data 08/14/24 05:31 08/14/24 12:37 Micro: Microbiology 08/14/24 10:48 Stool Lactoferrin - Final Stool 08/14/24 10:48 Occult Blood (FIT) - Final Stool Routine Collection A&P Assessment and plan (1) Diarrhea: (2) Acute renal insufficiency: (3) Dehydration: (4) Metabolic acidosis: (5) Hyperkalemia: (6) Hypovolemia: Plan #Metabolic acidosis most likely secondary to diarrhea/dehydration. Non-anion gap #Acute kidney injury #Suspicion of euglycemic DKA? #Hyperkalemia, potassium 5.3 #History of COPD, psoriasis, hypertension #Nausea vomiting poor oral intake #Dehydration ? Patient hyponatremic with sodium of 128. Check serum, urine osmolality, urine sodium ? DuoNeb every 6 hours as needed ? Beta hydroxybutyrate pending ? Bicarb 11 at this time. Will order bicarb drip and stop when bicarb 20. ? Placed on normal saline 100 cc/h ? Patient only had 1 bowel movement which was formed since admission. ? C. difficile negative ? Check Legionella antigen ? Hold nephrotoxic agents. Hold potassium supplement, lisinopril at this time. ? Stool culture pending ? PPI ordered, continue ? Continue nicotine patch ? Patient does have mild cognitive dysfunction and is a poor historian. Lives by himself states has been forgetful. Will check head CT. ? Check CT chest abdomen pelvis. Lactoferrin positive in stool. Abdomen slightly tender. ? Hemoglobin A1c 8.5. Insulin drip has been stopped. Will place on clear liquid consistent carbohydrate diet at this time. ? Placed on low-dose intensity sliding scale insulin -Check BMP every 6 hours. ? Patient's chest x-ray does show chronic pleural thickening at right costophrenic angle. This x-ray was performed in November. There is also a lung mass diagnoses listed on his chart but I cannot find any further details regarding it. Will check CT chest today. There may be a possible malignancy which could explain the hyponatremia?? We will make sure we rule that out at this time. Patient does not have much social support. Full code Due to prophylaxis: Heparin subcu twice daily Attestations 2 Medical Necessity Statement*: continue to treat acidosis, Diagnoses Diarrhea R19.7 Acute renal insufficiency N28.9 Dehydration E86.0 Metabolic acidosis E87.20 Hyperkalemia E87.5 Hypovolemia E86.1
--- NOTE | 2024-08-14 14:24 | CTR_ITS ---
PROCEDURE INFORMATION: Exam: CT Head Without Contrast Exam date and time: 08/14/2024 3:04 PM Age: 64 years old Clinical indication: Altered mental status/memory loss; Additional info: Cognitive impairment TECHNIQUE: Imaging protocol: Computed tomography of the head without contrast. Radiation optimization: All CT scans at this facility use at least one of these dose optimization techniques: automated exposure control; mA and/or kV adjustment per patient size (includes targeted exams where dose is matched to clinical indication); or iterative reconstruction. COMPARISON: No relevant prior studies available. RADIATION DOSE METRICS: Total DLP (mGy-cm): 1145 FINDINGS: Brain: No hemorrhage. No edema. Moderate diffuse cerebral atrophy and sequela of chronic small vessel ischemic disease. 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 Old infarct noted in the right cerebellar hemisphere. No mass effect. Cerebral ventricles: No ventriculomegaly. Paranasal sinuses: Visualized sinuses are unremarkable. No fluid levels. Mastoid air cells: Visualized mastoid air cells are well aerated. Bones: Unremarkable. No acute fracture. Soft tissues: Unremarkable. CT/CT head wo con* [id number] IMPRESSION: No acute intracranial abnormality.
[2024-08-14] MEDS: sodium bicarbonate 150 MEQ in dextrose 5% 1,000 ML 100 MEQ IV (14:39)
[2024-08-14] MEDS: sodium chloride 0.9% 1,000 ML 100 ML IV (14:40)
[2024-08-14] MEDS: heparin 5,000 unit/mL INJ 1 mL 5000 UNIT SUBCUT (14:40)
[2024-08-14 14:58] LABS: Anion Gap 11.6 (5-19); Blood Urea Nitrogen 56 mg/dL (8-23); Calcium 8.1 mg/dL (8.5-10.5); Carbon Dioxide 17 mmol/L (22-29); Chloride 113 mmol/L (98-107); Creatinine Clr Calc Pharmacy 67.9693; Glomerular Filtration Rate 67.2 mL/min (90-130); Glucose 124 mg/dL (65-115); Osmolality Calculated 301 mOsm/kg (285-295); Potassium 4.6 mmol/L (3.5-5.1); Sodium 137 mmol/L (136-145); Thyroid Stimulating Hormone 0.51 uIU/mL (0.27-4.20)
[2024-08-14] MEDS: iohexol 350 mg/mL 500 mL Btl (per mL) IV (15:08)
[2024-08-14 15:32] LABS: Urine Random Sodium 58 mmol/L
[2024-08-14] MEDS: acetaminophen 325 mg Tablet 650 MG PO ×2 (15:53→23:32)
[2024-08-14 15:59] LABS: Glucose Point of Care 122 mg/dL (70-110)
[2024-08-14 15:59] LABS: Glucose Point of Care 158 mg/dL (70-110)
[2024-08-14 15:59] LABS: Glucose Point of Care 128 mg/dL (70-110)
[2024-08-14 17:39] LABS: Glucose Point of Care 137 mg/dL (70-110)
[2024-08-14 20:46] LABS: Glucose Point of Care 168 mg/dL (70-110)
[2024-08-14] MEDS: insulin lispro 100 unit/1 mL SUBCUT (20:51)
[2024-08-14 21:02] LABS: Blood Urea Nitrogen 47 mg/dL (8-23); Calcium 7.6 mg/dL (8.5-10.5); Carbon Dioxide 14 mmol/L (22-29); Chloride 112 mmol/L (98-107); Creatinine Clr Calc Pharmacy 83.0736; Glomerular Filtration Rate 84.7 mL/min (90-130); Glucose 181 mg/dL (65-115); Osmolality Calculated 293 mOsm/kg (285-295); Sodium 133 mmol/L (136-145)
[2024-08-14 21:04] LABS: Anion Gap 11.8 (5-19); Potassium 4.8 mmol/L (3.5-5.1)
[2024-08-15] VITALS (17 sets, daily range): BP systolic 133–159; BP diastolic 64–85; PULSE 72–95; RESP 13–33; TEMP 36.4–37; O2SAT 94–97
[2024-08-15] MEDS: sodium chloride 0.9% 1,000 ML 100 ML IV ×2 (02:24→12:19)
[2024-08-15 03:21] LABS: Basophils % 0.5 %; Eosinophils # 0.2 10^3/uL (0.0-0.8); Eosinophils % 3.4 %; Hematocrit 45.4 % (37-53); Lymphocytes # 1.2 10^3/uL (0.8-4.8); Mean Corpuscular HGB Conc 33.3 g/dL (30-55); Mean Corpuscular Hemoglobin 33.5 pg (27-33); Mean Corpuscular Volume 100.7 fl (82-101); Mean Platelet Volume 10.6 fL (7.4-10.4); Monocytes # 0.6 10^3/uL (0.2-0.9); Monocytes % 10.6 %; Neutrophils # 3.81 10^3/uL (1.8-7.7); Neutrophils % 65.3 %; Nucleated Red Blood Cells % 0 %; Platelet Count 192 10^3/cmm (157-399); Red Blood Count 4.51 10^6/uL (3.85-5.65); Red Cell Distribution Width 13.2 % (12.1-15.1); White Blood Count 5.84 10^3/uL (3.29-11.43)
[2024-08-15 03:42] LABS: Alanine Aminotransferase 7 U/L (0-41); Albumin Level 3.4 g/dL (3.5-5.2); Alkaline Phosphatase 63 U/L (40-130); Anion Gap 12.1 (5-19); Aspartate Amino Transferase 12 U/L (0-40); Blood Urea Nitrogen 40 mg/dL (8-23); Calcium 7.6 mg/dL (8.5-10.5); Carbon Dioxide 17 mmol/L (22-29); Chloride 114 mmol/L (98-107); Creatinine Clr Calc Pharmacy 83.0736; Globulin 2.1 g/dL (1.3-4.6); Glomerular Filtration Rate 84.7 mL/min (90-130); Glucose 144 mg/dL (65-115); Magnesium 1.8 mg/dL (1.7-2.3); Osmolality Calculated 300 mOsm/kg (285-295); Potassium 4.1 mmol/L (3.5-5.1); Sodium 139 mmol/L (136-145); Total Bilirubin 0.9 mg/dL (0.15-1.2); Total Protein 5.5 g/dL (6.6-8.7)
[2024-08-15] MEDS: heparin 5,000 unit/mL INJ 1 mL 5000 UNIT SUBCUT ×2 (04:11→15:25)
[2024-08-15] MEDS: sodium bicarbonate 150 MEQ in dextrose 5% 1,000 ML 100 MEQ IV (04:11)
[2024-08-15 07:47] LABS: Glucose Point of Care 170 mg/dL (70-110)
[2024-08-15] MEDS: insulin lispro 100 unit/1 mL SUBCUT ×3 (08:00→21:18)
[2024-08-15] MEDS: nicotine 21 mg Patch 1 PATCH TRANSDERMA (08:00)
[2024-08-15 09:50] LABS: Anion Gap 11.1 (5-19); Blood Urea Nitrogen 32 mg/dL (8-23); Calcium 8.1 mg/dL (8.5-10.5); Carbon Dioxide 20 mmol/L (22-29); Chloride 109 mmol/L (98-107); Creatinine Clr Calc Pharmacy 95.7255; Glucose 196 mg/dL (65-115); Osmolality Calculated 294 mOsm/kg (285-295); Potassium 4.1 mmol/L (3.5-5.1); Sodium 136 mmol/L (136-145)
[2024-08-15] MEDS: pantoprazole 40 mg SDV IVP (11:27)
[2024-08-15 11:28] LABS: Glucose Point of Care 194 mg/dL (70-110)
[2024-08-15 13:20] LABS: Osmolality Serum 299 mOsm/kg (278-305)
--- NOTE | 2024-08-15 13:49 | P.PN_ITS ---
Subjective 2 Subjective: Seen today. Patient states he is feeling slightly better. Patient has declined rehab. Vitals/I&O/Wt Last Vital Signs Temp 97.8 F 08/15/24 00:00 Pulse 81 08/15/24 13:00 Resp 28 H 08/15/24 13:00 BP 159/85 08/15/24 13:00 Pulse Ox 97 08/15/24 13:00 O2 Del Method Room Air 08/15/24 13:00 08/14/24 08/15/24 08/15/24 22:59 06:59 14:59 Intake Total 2390 / 3698.101 1231.667 / 1231.667 Output Total 1250 / 1650 300 / 1950 Balance -1250 / -034.757 0155 / 4883.513 5811.667 / 1231.667 Weight last 48 hrs Weight 81.193 kg Weight 76.839 kg Weight 76.34 kg Weight 77.564 kg Physical Exam 2 Const: COMMON NORMALS: patient oriented x3 and alert GENERAL APPEARANCE: c ooperative ORIENTATION/CONSCIOUSNESS: Yes awake HENMT: COMMON NORMALS: oropharynx normal Neck/C-Spine: COMMON NORMALS: no JVD Resp: COMMON NORMALS: normal respiratory effort and clear to auscultation bilaterally AUSCULTATION: clear to auscultation bilaterally Cardio: COMMON NORMALS: no JVD, regular rhythm, S1 normal heart sound present, S2 normal heart sound present and No murmurs present (Cardio) RHYTHM: regular rhythm HEART SOUNDS: S1 normal heart sound present and S2 normal heart sound present GI: COMMON NORMALS: Soft to palpation and non-tender PALPATION: Yes Soft to palpation Extremity: COMMON NORMALS: no joint enlargement and no pedal edema Neuro: COMMON NORMALS: patient oriented x3 and moves all extremities S ENSORIUM/ORIENTATION: Yes alert Skin: OTHER: Scattered psoriasis lesions and patches Data 08/15/24 02:24 08/15/24 08:59 Micro: Microbiology 08/14/24 14:48 Legionella Urinary Antigen - Final Urine,Voided 08/14/24 10:48 Stool Lactoferrin - Final Stool 08/14/24 10:48 Occult Blood (FIT) - Final Stool Routine Collection A&P Assessment and plan (1) Diarrhea: (2) Acute renal insufficiency: (3) Dehydration: (4) Metabolic acidosis: (5) Hyperkalemia: (6) Hypovolemia: Plan #Metabolic acidosis most likely secondary to diarrhea/dehydration. Non-anion gap #Acute kidney injury #Suspicion of euglycemic DKA? #Hyperkalemia, potassium 5.3 #History of COPD, psoriasis, hypertension #Nausea vomiting poor oral intake #Dehydration ? Patient hyponatremic with sodium of 128. Check serum, urine osmolality, urine sodium ? DuoNeb every 6 hours as needed ? Beta hydroxybutyrate pending ? Bicarb 11 at this time. Will order bicarb drip and stop when bicarb 20. ? Placed on normal saline 100 cc/h ? Patient only had 1 bowel movement which was formed since admission. ? C. difficile negative ? Check Legionella antigen ? Hold nephrotoxic agents. Hold potassium supplement, lisinopril at this time. ? Stool culture pending ? PPI ordered, continue ? Continue nicotine patch ? Patient does have mild cognitive dysfunction and is a poor historian. Lives by himself states has been forgetful. Will check head CT. ? Check CT chest abdomen pelvis. Lactoferrin positive in stool. Abdomen slightly tender. ? Hemoglobin A1c 8.5. Insulin drip has been stopped. Will place on clear liquid consistent carbohydrate diet at this time. ? Placed on low-dose intensity sliding scale insulin -Check BMP every 6 hours. ? Patient's chest x-ray does show chronic pleural thickening at right costophrenic angle. This x-ray was performed in November. There is also a lung mass diagnoses listed on his chart but I cannot find any further details regarding it. Will check CT chest today. There may be a possible malignancy which could explain the hyponatremia?? We will make sure we rule that out at this time. Patient does not have much social support. Full code Due to prophylaxis: Heparin subcu twice daily 08/15 Transfer patient to medical floor today. Labs are improving Discontinue bicarbonate drip and normal saline Encourage oral hydration CT head negative Will order occupational therapy assessment [place] assessment on the patient. Will assess for capacity. He does have mild cognitive impairment. CT chest abdomen pelvis reviewed: 1. Multifocal opacity in the right upper lobe. Probable scarring. Infection is not excluded. 2. Right posterior costal pleural thickening and calcification. Possible asbestos related pleural disease or sequelae of prior pleurodesis. 3. Mild centrilobular emphysema. 4. Incidental findings above. 1. Intermittently gas and stool distended colon without other evidence of inflammation. Possible colonic ileus. 2. Incidental findings above. Continue sliding scale insulin low-dose intensity Hemoglobin A1c 8.5 We will need to make an assessment for patient's capacity to understand his conditions before we can discharge him safely. He states he has been forgetful and lives alone. Does not have much of a social support. Will evaluate results of [facility] assessment. Attestations 2 Medical Necessity Statement*: Transfer to floor today. Occupational therapy assessment pending. Diagnoses Diarrhea R19.7 Acute renal insufficiency N28.9 Dehydration E86.0 Metabolic acidosis E87.20 Hyperkalemia E87.5 Hypovolemia E86.1
--- NOTE | 2024-08-15 14:08 | PC.NURSE ---
Report was given to Donita in [facility]. Patient was transferred to [facility] successfully without any complications. all of patient's belongings were sent with patient including their wallet and cigarets.
[2024-08-15 17:04] LABS: Glucose Point of Care 84 mg/dL (70-110)
[2024-08-15 21:13] LABS: Glucose Point of Care 157 mg/dL (70-110)
[2024-08-16] VITALS: BP 153/78; PULSE 90; RESP 17; O2SAT 94
[2024-08-16] MEDS: heparin 5,000 unit/mL INJ 1 mL 5000 UNIT SUBCUT (03:00)
[2024-08-16 04:16] LABS: Basophils # 0.1 10^3/uL (0.0-0.1); Basophils % 0.7 %; Eosinophils # 0.2 10^3/uL (0.0-0.8); Eosinophils % 2.4 %; Hematocrit 46.1 % (37-53); Lymphocytes # 1.1 10^3/uL (0.8-4.8); Lymphocytes % 15.9 %; Mean Corpuscular HGB Conc 34.7 g/dL (30-55); Mean Corpuscular Hemoglobin 33.9 pg (27-33); Mean Corpuscular Volume 97.7 fl (82-101); Monocytes # 0.7 10^3/uL (0.2-0.9); Monocytes % 10.8 %; Neutrophils # 4.71 10^3/uL (1.8-7.7); Neutrophils % 69.9 %; Nucleated Red Blood Cells % 0 %; Platelet Count 212 10^3/cmm (157-399); Red Blood Count 4.72 10^6/uL (3.85-5.65); Red Cell Distribution Width 12.9 % (12.1-15.1); White Blood Count 6.74 10^3/uL (3.29-11.43)
[2024-08-16 04:36] LABS: Anion Gap 11.7 (5-19); Blood Urea Nitrogen 19 mg/dL (8-23); Calcium 8.1 mg/dL (8.5-10.5); Carbon Dioxide 24 mmol/L (22-29); Chloride 109 mmol/L (98-107); Creatinine Clr Calc Pharmacy 95.7255; Glomerular Filtration Rate 113.2 mL/min (90-130); Glucose 115 mg/dL (65-115); Osmolality Calculated 295 mOsm/kg (285-295); Potassium 3.7 mmol/L (3.5-5.1); Sodium 141 mmol/L (136-145)
[2024-08-16 04:38] VITALS: BP 151/78; PULSE 87; RESP 17; O2SAT 93
[2024-08-16 05:57] VITALS: BMI 26.6
[2024-08-16 06:44] LABS: Glucose Point of Care 96 mg/dL (70-110)
[2024-08-16 08:00] VITALS: BP 156/82; PULSE 87; RESP 18; TEMP 36.6; O2SAT 94
[2024-08-16] MEDS: pantoprazole 40 mg SDV IVP (08:11)
[2024-08-16] MEDS: nicotine 21 mg Patch 1 PATCH TRANSDERMA (08:11)
[2024-08-16 12:00] VITALS: BP 155/83; PULSE 88; RESP 22; TEMP 36.7
[2024-08-16 12:04] LABS: Glucose Point of Care 117 mg/dL (70-110)
--- NOTE | 2024-08-16 12:05 | P.DS_ITS ---
Discharge Providers Date of Admission: 08/13/24 21:51 Date of Discharge: August 16, 2024 Attending Provider at Admission: Haja Batista Attending Provider at Discharge: Windy Julio MD Primary Care Provider: LEAH Jordan Diagnoses at Discharge Discharge Diagnosis (1) Diarrhea: Status: Resolved (2) Acute renal insufficiency: Status: Resolved (3) Dehydration: Status: Resolved (4) Metabolic acidosis: Status: Resolved (5) Hyperkalemia: Status: Resolved (6) Hypovolemia: Status: Resolved Reason for Visit Reason for Visit: abn bp Hospital Course Hospital Course Patient was admitted for metabolic acidosis, SLOAN secondary to dehydration and diarrhea. There was suspicion of euglycemic DKA and he was placed on a bicarbonate drip. It was stopped once bicarb was greater than 20. C. difficile was negative. His chest CT abdomen pelvis did show multifocal opacity in right upper lobe possible scarring infection not excluded. Patient did live by himself and did not have very much social support. Occupational Therapy [place] assessment was performed prior to discharge. Patient required help and 3 of the 12 areas. I believe he had capacity to make his medical decisions. He worked well with physical therapy. Hemoglobin A1c 8.5 patient's Jardiance was stopped and he was discharged home in stable condition. He is to follow-up with primary care doctor outpatient. Walker was set up for the patient. Patient was also given a referral to pulmonology. Physical Exam Const: COMMON NORMALS: patient oriented x3 and alert GENERAL APPEARANCE: cooperative ORIENTATION/CONSCIOUSNESS: Yes awake HENMT: COMMON NORMALS: oropharynx normal Neck/C-Spine: COMMON NORMALS: no JVD Resp: COMMON NORMALS: normal respiratory effort and clear to auscultation bilaterally AUSCULTATION: clear to auscultation bilaterally Cardio: COMMON NORMALS: no JVD, regular rhythm, S1 normal heart sound present, S2 normal heart sound present and No murmurs present (Cardio) RHYTHM: regular rhythm HEART SOUNDS: S1 normal heart sound present and S2 normal heart sound present GI: COMMON NORMALS: Soft to palpation and non-tender PALPATION: Yes Soft to palpation Extremity: COMMON NORMALS: no joint enlargement and no pedal edema Neuro: COMMON NORMALS: patient oriented x3 and moves all extremities SENSORIUM/ORIENTATION: Yes alert Skin: OTHER: Scattered psoriasis lesions and patches Discharge Data Studies Completed and Pending Completed Studies During Hospitalization Category Date Time Status CT chest abdomen pelvis [CT chest abdpel w/*[id number] Cat Scan 08/14/24 14:15 Completed ] Urgent CT head wo con* [id number] Routine Cat Scan 08/14/24 14:24 Completed Pending at discharge Category Date Time Status Beta-Hydroxybutyrate Routine Lab 08/14/24 02:17 Received Osmolality Urine Stat Lab 08/14/24 14:48 Received Stool Culture - Enteric [Salmonella / Shigella / Campy] Lab 08/14/24 10:48 Received Routine Radiology Impressions Chest/Abdomen/Pelvis CT 08/14/24 14:15 IMPRESSION: 1. Multifocal opacity in the right upper lobe. Probable scarring. Infection is not excluded. 2. Right posterior costal pleural thickening and calcification. Possible asbestos related pleural disease or sequelae of prior pleurodesis. 3. Mild centrilobular emphysema. 4. Incidental findings above. IMPRESSION: 1. Intermittently gas and stool distended colon without other evidence of inflammation. Possible colonic ileus. 2. Incidental findings above. Head CT 08/14/24 14:24 IMPRESSION: No acute intracranial abnormality. Laboratory Results WBC 6.74 10^3/uL (3.29-11.43) 08/16/24 04:01 RBC 4.72 10^6/uL (3.85-5.65) 08/16/24 04:01 Hgb 16.00 g/dL (11.27-16.99) 08/16/24 04:01 Hct 46.1 % (37-53) 08/16/24 04:01 MCV 97.7 fl (82-101) 08/16/24 04:01 MCH 33.9 pg (27-33) H 08/16/24 04:01 MCHC 34.7 g/dL (30-55) 08/16/24 04:01 RDW 12.9 % (12.1-15.1) 08/16/24 04:01 Plt Count 212 10^3/cmm (157-399) 08/16/24 04:01 MPV 10.0 fL (7.4-10.4) 08/16/24 04:01 Neut % (Auto) 69.9 % 08/16/24 04:01 Lymph % (Auto) 15.9 % 08/16/24 04:01 [place] % (Auto) 10.8 % 08/16/24 04:01 Eos % (Auto) 2.4 % 08/16/24 04:01 Baso % (Auto) 0.7 % 08/16/24 04:01 Neut # (Auto) 4.71 10^3/uL (1.8-7.7) 08/16/24 04:01 Lymph # (Auto) 1.1 10^3/uL (0.8-4.8) 08/16/24 04:01 [place] # (Auto) 0.7 10^3/uL (0.2-0.9) 08/16/24 04:01 Eos # (Auto) 0.2 10^3/uL (0.0-0.8) 08/16/24 04:01 Baso # (Auto) 0.1 10^3/uL (0.0-0.1) 08/16/24 04:01 Nucleated RBC % (auto) 0 % 08/16/24 04:01 Nucleated RBCs # 0.0 /100WBC 08/16/24 04:01 Specimen Type Venous 08/14/24 01:50 Sample Site Not specified 08/14/24 01:50 ABG pH 7.18 (7.35-7.45) L* 08/13/24 21:23 ABG pCO2 32.7 mmHg (35-45) L 08/13/24 21: ABG pO2 74.7 mmHg (80.0-100.0) L 08/13/24 21:23 ABG PO2/FiO2 Ratio 355 08/13/24 21: ABG HCO3 12.3 mmol/L (22-26) L 08/13/24 21: ABG O2 Saturation 95.5 08/13/24 21:23 ABG Base Excess -14.8 mmol/L (-2.0-2.0) L 08/13/24 21:23 [place] Test N/a 08/14/24 01:50 VBG pH 7.17 (7.32-7.42) L* 08/14/24 01:50 VBG pCO2 35.4 mmHg (41-51) L 08/14/24 01:50 VBG pO2 55.6 mmHg (25-40) H 08/14/24 01:50 VBG HCO3 12.9 mmol/L (24-28) L 08/14/24 01:50 VBG Base Excess -14.6 mmol/L (-3.0-3.0) L 08/14/24 01:50 VBG Hematocrit 50.9 % (42-52) 08/14/24 01:50 A-a O2 Gradient 4.4 mmHg (5-10) L 08/13/24 21:23 Hematocrit 49.8 % (42-52) 08/13/24 21:23 Hgb O2 Saturation 93.0 % (95-100) L 08/13/24 21:23 Carboxyhemoglobin 1.9 %THgb (0.4-20.1) 08/13/24 21: Methemoglobin 0.7 % (0.4-1.5) 08/13/24 21:23 Total Hemoglobin 16.2 g/dL (14-18) 08/13/24 21:23 Sodium 134.0 mmol/L (131-143) 08/13/24 21:23 Potassium 4.8 mmol/L (3.5-5.0) 08/13/24 21:23 Glucose 123.0 mg/dL (70-115) H 08/13/24 21:23 Ionized Calcium 1.2 mmol/L (1.1-1.4) 08/13/24 21:23 O2 Delivery Device None 08/14/24 01:50 FiO2 21.0 % 08/13/24 21:23 Landscape Crew Member ID [email or web address] 08/14/24 01:50 Sodium 141 mmol/L (136-145) 08/16/24 04:01 Potassium 3.7 mmol/L (3.5-5.1) 08/16/24 04:01 Chloride 109 mmol/L (98-107) H 08/16/24 04:01 Carbon Dioxide 24 mmol/L (22-29) 08/16/24 04:01 Anion Gap 11.7 (5-19) 08/16/24 04:01 BUN 19 mg/dL (8-23) 08/16/24 04:01 Creatinine 0.7 mg/dL (0.7-1.2) 08/16/24 04:01 GFR Calculation 113.2 mL/min (90-130) 08/16/24 04:01 Glucose 115 mg/dL (65-115) 08/16/24 04:01 POC Glucose 117 mg/dL (70-110) H 08/16/24 12:00 Estimat Average Glucose 197 08/14/24 05:31 Hemoglobin A1c 8.5 % (4.0-6.0) H 08/14/24 05:31 Serum Osmolality 299 mOsm/kg (278-305) 08/14/24 14:25 Calculated Osmolality 295 mOsm/kg (285-295) 08/16/24 04:01 Lactic Acid 1.1 mmol/L (0.5-2.2) 08/13/24 22:27 Calcium 8.1 mg/dL (8.5-10.5) L 08/16/24 04:01 Magnesium 1.8 mg/dL (1.7-2.3) 08/15/24 02:24 Total Bilirubin 0.9 mg/dL (0.15-1.2) 08/15/24 02:24 AST 12 U/L (0-40) 08/15/24 02:24 ALT 7 U/L (0-41) 08/15/24 02:24 Alkaline Phosphatase 63 U/L (40-130) 08/15/24 02:24 Creatine Kinase 58 U/L (39-308) 08/14/24 01:50 Total Protein 5.5 g/dL (6.6-8.7) L 08/15/24 02:24 Albumin 3.4 g/dL (3.5-5.2) L 08/15/24 02:24 Globulin 2.1 g/dL (1.3-4.6) 08/15/24 02:24 Lipase 37 U/L (13-60) 08/13/24 20:01 TSH 0.51 uIU/mL (0.27-4.20) 08/14/24 14:25 Urine Color Yellow (Yellow) 08/13/24 23:40 Urine Appearance Clear (CLEAR) 08/13/24 23:40 Urine pH 5.5 (5-7) 08/13/24 23:40 Ur Specific [place] 1.017 (1.005-1.030) 08/13/24 23:40 Urine Protein 1+ (Negative) A 08/13/24 23:40 Urine Glucose (UA) Negative (Normal) 08/13/24 23:40 Urine Ketones Negative (Negative) 08/13/24 23:40 Urine Blood Negative (Negative) 08/13/24 23:40 Urine Nitrate Negative (Negative) 08/13/24 23:40 Urine Bilirubin Negative (Negative) 08/13/24 23:40 Urine Urobilinogen 1.0 mg/dL (Negative) 08/13/24 23:40 Ur Leukocyte Esterase Negative (Negative) 08/13/24 23:40 Urine RBC 0-2 /hpf (0-2) 08/13/24 23:40 Urine WBC 0-5 /hpf (0-5) 08/13/24 23:40 Ur Squamous Epith Cells 0-5 /hpf (0-5) 08/13/24 23:40 Amorphous Sediment Not Reportable 08/13/24 23:40 Urine Bacteria None seen /hpf (NONE) 08/13/24 23:40 Hyaline Casts 11.16 /lpf 08/13/24 23:40 Ur Random Sodium 58 mmol/L 08/14/24 14:48 Urine Creatinine 142 mg/dL (39-259) 08/13/24 23:40 Serum Ketones Negative (Negative) 08/13/24 22:27 C. difficile (PCR) Negative (Negative) 08/14/24 10:48 Vitals Last Vital Signs Temp 97.8 F 08/16/24 08:00 Pulse 87 08/16/24 08:00 Resp 18 08/16/24 08:00 BP 156/82 08/16/24 08:00 Pulse Ox 94 08/16/24 08:00 O2 Del Method Room Air 08/16/24 08:00 Discharge Plan Discharge Patient Disposition: Home Health Service Condition: Stable Prescriptions: Continued atorvastatin 40 mg tablet 40 mg PO BEDTIME glipizide 5 mg tablet extended release 24 hr 5 mg PO DAILY spironolactone 25 mg tablet 25 mg PO DAILY albuterol sulfate 90 mcg/actuation HFA aerosol inhaler 1 puff INHALATION Q4H PRN (Reason: Shortness Of Breath Or Wheezing) metoprolol succinate 50 mg tablet extended release 24 hr 50 mg PO DAILY potassium chloride 10 mEq Tablet Extended Release 10 meq PO EVERY OTHER DAY amlodipine 10 mg tablet 10 mg PO DAILY lisinopril 40 mg tablet 40 mg PO DAILY fluticasone propionate 50 mcg/actuation [place],Suspension 1 spray INTRANASAL BID Rx Instructions: administer into each nostril Trelegy Ellipta 100-62.5-25 mcg blister with device 1 ea INHALATION BID Discontinued Jardiance 25 mg tablet 25 mg PO DAILY Discharge Orders: Discharge Order (Routine); Ordered 08/16/24 Ordered By: Windy Julio Other Ambulatory Orders: DME: Walker (Order) Location: None Selected Ordered By: Windy Julio Basic Metabolic Panel (Routine) Timeframe: 1 Week Facility: [facility] - Location: Lab - Main Lab Ordered By: Windy Julio Referrals: yani valerio [Other] - 2 weeks (The number for this provider does not work 1. Multifocal opacity in the right upper lobe. Probable scarring. Infection is not excluded. 2. Right posterior costal pleural thickening and calcification. Possible asbestos related pleural disease or sequelae of prior pleurodesis. 3. Mild centrilobular emphysema. ) [facility] [Outside] Snowden,LEAH Hewitt [Primary Care Provider] - 08/27/24 1:30 pm Discharge Diet: Cardiac and Diabetic Discharge Activity: Resume usual activity Patient Instructions: Dehydration - Adult, Type 2 Diabetes, Acute Kidney Injury (DC), Hyperkalemia (DC), Metabolic Acidosis (GEN), Opioid Safety Discharge Attestations Time Spent in Discharge Care*: greater than 30 min Quality Metrics Clinical Quality Measures [ No reported AMI, CVA or VTE this stay] Coding Level of Care Code Acute Code for Chg Fwd Diagnoses Diarrhea R19.7 Acute renal insufficiency N28.9 Dehydration E86.0 Metabolic acidosis E87.20 Hyperkalemia E87.5 Hypovolemia E86.1
[2024-08-16 14:15] VITALS: PULSE 85; RESP 16; O2SAT 96
[2024-08-16 14:52] VITALS: BP 123/65; PULSE 91; RESP 18; TEMP 36.9; O2SAT 92
[2024-08-16 17:41] LABS: Osmolality Urine 462 mOsm/kg (50-1200)
[2024-08-23 03:41] LABS: Beta-Hydroxybutyrate 0.22 mmol/L
== END 2024-08-16 14:41 | disposition home health service (06) | DRG 682 ==
LOC: ER 21:36 → MEDSURG 22:03 → ICU 08-14 08:43 → MEDSURG 08-14 13:21 → ICU 08-15 13:06 → CSU 08-15 13:50
PROVIDERS: Emergency Medicine; Admitting Provider Internal Medicine; Emergency Provider Emergency Medicine; PCP Nurse Practitioner Family; Visit Provider Internal Medicine
DX: N17.9 Acute kidney failure, unspecified (principal); E11.10 Type 2 diabetes mellitus with ketoacidosis without coma; E87.1 Hypo-osmolality and hyponatremia; E86.0 Dehydration; E87.5 Hyperkalemia; E86.1 Hypovolemia; F17.200 Nicotine dependence, unspecified, uncomplicated; L40.9 Psoriasis, unspecified; J43.2 Centrilobular emphysema; I10 Essential (primary) hypertension; G31.84 Mild cognitive impairment of uncertain or unknown etiology; Z60.8 Other problems related to social environment; Z79.82 Long term (current) use of aspirin; Z79.02 Long term (current) use of antithrombotics/antiplatelets; Z79.84 Long term (current) use of oral hypoglycemic drugs
CPT/HCPCS: 36415; 36416; 70450; 71260; 74177; 80048; 80051; 80053; 81001; 82009; 82010; 82274; 82330; 82550; 82570; 82803; 82805; 82962; 83036; 83605; 83630; 83690; 83735; 83930; 83935; 84300; 84443; 85025; 87045; 87427; 87449; 87493; 96360; 96372; 97110; 97116; 97161; 97167; 99285; J1644; J1815; J2470; J3475; J7030; J7070; J7799

== ENCOUNTER → 2024-09-05 13:04 | Outpatient (BNVA) | payer MEDICARE, MEDICAID, SELFPAY | PROVIDERS: PCP Nurse Practitioner Family; Referring Provider Nurse Practitioner Family; Visit Provider Student in an Organized Health Care Education/Training Program | DX: R12 Heartburn; R19.4 Change in bowel habit | CPT/HCPCS: 99204 ==

== ENCOUNTER 2024-10-07 22:07 | Emergency (ER) | payer MEDICARE, MEDICAID, SELFPAY ==
[2024-10-07 22:10] VITALS: BP 124/71; PULSE 84; RESP 16; TEMP 36.4; O2SAT 96
[2024-10-07] MEDS: lactulose oral liq 20 gm/30 mL UDC 30 GM PO (22:43)
[2024-10-07] MEDS: mineral oil 30 mL UDC PO (22:43)
[2024-10-07] MEDS: magnesium citrate Btl 296 mL PO (22:43)
[2024-10-07 22:49] VITALS: BP 124/71; PULSE 80; O2SAT 98
--- NOTE | 2024-10-08 00:28 | W.ED.ABDPA2 ---
HPI - Abdominal Pain General: Chief Complaint: Abdominal Pain Stated Complaint: Cant Poop Time Seen by Provider: 10/07/24 22:19 Source: patient Mode of arrival: ambulatory Limitations: no limitations History of Present Illness: Patient is a 64-year-old male who presented to the emergency department complaining of constipation today. States he has not had a bowel movement since earlier this morning, this is abnormal for him as he has at least 2/day. Also reporting some general abdominal pain. States he has continued to pass gas, he took unknown [id number] laxative that did not seem to help. States that he normally has a bowel movement about this time, is concerned that he has not. No other concerning signs or symptoms reported. Vital stable. MD elicited complaint: other (Constipation) Onset (ago): hour(s) Pain Consistency: constant Location: Diffuse Severity: mild Associated Symptoms: Reports constipation; Denies bloating, change in stool character, chills, diarrhea, dysuria, fever(s), hematochezia, nausea and vomiting Related Data Home Medications Medication Instructions Recorded Confirmed albuterol sulfate 90 mcg/actuation 1 puff inhalation Q4H PRN 07/19/22 09/05/24 aerosol inhaler Shortness Of Breath Or Wheezing atorvastatin 40 mg tablet 40 mg PO BEDTIME 07/19/22 09/05/24 glipizide 5 mg tablet, extended 5 mg PO DAILY 07/19/22 09/05/24 release 24 hr spironolactone 25 mg tablet 25 mg PO DAILY 07/19/22 09/05/24 amlodipine 10 mg tablet 10 mg PO DAILY 11/22/23 09/05/24 fluticasone fur. 100 mcg-umeclid 1 ea inhalation BID 11/22/23 09/05/24 62.5 mcg-vilant 25 mcg inhalat.powder (Trelegy Ellipta) fluticasone propionate 50 1 spray intranasal BID 11/22/23 09/05/24 mcg/actuation nasal spray,suspension lisinopril 40 mg tablet 40 mg PO DAILY 11/22/23 09/05/24 metoprolol succinate 50 mg 50 mg PO DAILY 11/22/23 09/05/24 tablet,extended release 24 hr potassium chloride 10 mEq 10 meq PO EVERY OTHER DAY 11/22/23 09/05/24 tablet,extended release clopidogrel 75 mg tablet mg PO ONCE 09/05/24 09/05/24 insulin glargine 100 unit/mL (3 unit SUBCUT ONCE 09/05/24 09/05/24 mL) subcutaneous pen (Lantus Solostar U-100 Insulin) lansoprazole 30 mg capsule,delayed mg PO ONCE 09/05/24 09/05/24 release Allergies Allergy/AdvReac Type Severity Reaction Status Date / Time aspirin Allergy Unknown Verified 10/07/24 22:13 Review of Systems General: Reports: 10 or more systems reviewed and unremarkable except in HPI and below Const: Denies: fever(s), chills, change in appetite, change in weight or diaphoresis ENMT: Denies: throat pain or hoarseness Card: Denies: chest pain, palpitations or lightheadedness Resp: Denies: dyspnea, productive cough or wheezing GI: Reports: abdominal pain and constipation; Denies: nausea, vomiting, diarrhea, bloating, change in stool character or hematochezia : Denies: flank pain, difficulty urinating, dysuria, urinary frequency or urinary urgency Musc: Denies: neck pain or back pain Skin/Breast: Denies: rash or new lesions Neuro: Denies: headache(s) or dizziness PFSH ED PFSH: Medical History COPD (chronic obstructive pulmonary disease) Lung mass Surgical History H/O hernia repair Family History Denies family history of Clotting disorder Bleeding disorder Social History Smoking and tobacco/nicotine status: current every day tobacco/nicotine user Alcohol intake: never Substance/Drug Use: never Lives independently: Yes Household members: none Physical Exam Const: COMMON NORMALS: no acute distress, average body habitus, no limitations, healthy appearing and well nourished GENERAL APPEARANCE: cooperative and comfortable ORIENTATION/CONSCIOUSNESS: Yes awake HENMT: COMMON NORMALS: normocephalic, atraumatic, hearing grossly normal bilaterally, external ears normal, Normal external nose present, Normal nasal mucous membranes and turbinates present and moist oral mucous membranes HEAD & SCALP: normocephalic and atraumatic NOSE: Normal external nose present and Normal nasal mucous membranes and turbinates present EXTERNAL EAR: Yes external ears normal Eye: COMMON NORMALS: Equal, round and reactive pupils present, EOMs intact bilaterally, conjunctivae normal and normal visual rodriguez by confrontation CONJUNCTIVA: Yes conjunctivae normal PUPIL: Yes Equal, round and reactive pupils present Neck/C-Spine: COMMON NORMALS: full ROM, supple and no JVD Resp: COMMON NORMALS: normal respiratory effort, No retractions, No use of accessory muscles and clear to auscultation bilaterally AUSCULTATION: clear to auscultation bilaterally, no crackles, no rales, no rhonchi and no wheezes Cardio: COMMON NORMALS: no JVD, regular rate, regular rhythm, S1 normal heart sound present, S2 normal heart sound present, No gallops present (Cardio), No clicks present (Cardio), No murmurs present (Cardio), No rub (Cardio) and Peripheral pulses 2+ throughout RATE: regular rate RHYTHM: regular rhythm HEART SOUNDS: S1 normal heart sound present and S2 normal heart sound present PERIPHERAL PULSES: Peripheral pulses 2+ throughout GI: COMMON NORMALS: Normal to inspection, nondistended, normoactive bowel sounds present, Soft to palpation, non-tender, No hepatosplenomegaly present and no masses AUSCULTATION: Yes normoactive bowel sounds PALPATION: Yes Soft to palpation, No Guarding due to palpation present (GI), No Rigid due to palpation and Yes No hepatosplenomegaly present RECTAL EXAM: Yes deferred Skin: COMMON NORMALS: no rashes or lesions noted GENERAL SKIN EXAM: no rashes or lesions noted Course Vital Signs: Vital signs: Vital Signs Temperature 97.6 F 10/07/24 22:10 Pulse Rate 80 10/07/24 22:49 Respiratory Rate 16 10/07/24 22:10 Blood Pressure 124/71 10/07/24 22:49 Pulse Oximetry 98 10/07/24 22:49 MDM - Abdominal Pain Medical Decision Making Patient stating he had not had a bowel movement since earlier today, due to his concern we will just prescribe concoction of mineral oil, mag citrate, and lactulose for him to take at home to clear out his system. His vitals were stable and his physical exam was normal. Was continuing to pass gas and no concern for an obstruction. Return precautions were given. Told him to take MiraLAX as maintenance and increase his dietary fiber intake/fluid intake. No radiology studies performed this visit Discharge Plan Discharge Patient Disposition: Home Clinical Impression: Constipation Condition: Stable Prescriptions: No Action clopidogrel 75 mg tablet PO ONCE insulin glargine [Lantus Solostar U-100 Insulin] 100 unit/mL (3 mL) insulin pen SUBCUT ONCE lansoprazole 30 mg capsule,delayed release(DR/EC) PO ONCE atorvastatin 40 mg tablet 40 mg PO BEDTIME glipizide 5 mg tablet extended release 24 hr 5 mg PO DAILY spironolactone 25 mg tablet 25 mg PO DAILY albuterol sulfate 90 mcg/actuation HFA aerosol inhaler 1 puff INHALATION Q4H PRN (Reason: Shortness Of Breath Or Wheezing) metoprolol succinate 50 mg tablet extended release 24 hr 50 mg PO DAILY potassium chloride 10 mEq Tablet Extended Release 10 meq PO EVERY OTHER DAY amlodipine 10 mg tablet 10 mg PO DAILY lisinopril 40 mg tablet 40 mg PO DAILY fluticasone propionate 50 mcg/actuation [place],Suspension 1 spray INTRANASAL BID Rx Instructions: administer into each nostril Trelegy Ellipta 100-62.5-25 mcg blister with device 1 ea INHALATION BID Discharge Orders: Discharge ED (Routine); Ordered 10/07/24 Ordered By: Ishaan Pedroza Referrals: Marcelina Snowden FNP [Primary Care Provider] - Patient Instructions: Constipation (ED) Activity Restrictions/Additional Instructions: Take mineral oil, lactulose, and mag citrate concoction at home. Add maintenance MiraLAX if you continue to have issues with constipation. Drink plenty of fluids and make sure you have plenty of dietary fiber. If you continue to have issues with constipation or pain, return or follow-up with primary care as discussed. Coding Level of Care Code ED Finish Machine Tender for Lidia An
== END 2024-10-07 22:50 | disposition home or self-care (01) ==
PROVIDERS: Emergency Provider Physician Assistant; PCP Nurse Practitioner Family
DX: K59.00 Constipation, unspecified (principal); Z72.0 Tobacco use; J44.9 Chronic obstructive pulmonary disease, unspecified
CPT/HCPCS: 99283

== ENCOUNTER 2024-11-12 12:29 | Outpatient (CLI) | payer MEDICARE, MEDICAID, SELFPAY ==
--- NOTE | 2024-11-12 12:34 | USCV_ITS ---
GriffinfranckMaster marks Age: 64 Gender: M : 1960 Exam Date: 11/12/2024 12:48 Ordering Phys: Marcelina Snowden PROFESSOR OF LANGUAGES Technologist: R Exam Location: [facility] Indication: AAA screening HISTORY: Diameter (cm) AP x Transverse x Length Velocity (cm/s) Waveform Prox Aorta: 1.46 x 1.62 x 57.90 Triphasic Mid Aorta: 1.32 x 1.46 x 68.60 Triphasic Distal Aorta: 1.24 x 1.47 x 58.50 Triphasic Right Iliac Prox: 0.72 x 1.03 x 147.10 Triphasic Left Iliac Prox: 0.60 x 0.70 x 53.70 Triphasic Stent Prox Landing x x Aneurysmal Sac Max x x Lt Lat Sac Dim Rt Lat Sac Dim Stent Dist Landing x x Right Iliac Stent x x Left Iliac Stent x x Right Renal Art Left Renal Art FINDINGS: CONCLUSIONS No evidence of abdominal aortic or bilateral iliac aneurysm. Jerrod Brizuela MD (Electronically Signed) Final Date: 12 November 2024 17:07 S
== END 2024-11-12 12:30 | disposition home or self-care (01) ==
LOC: RAD 12:29
PROVIDERS: PCP Nurse Practitioner Family; Visit Provider Nurse Practitioner Family
DX: Z13.6 Encounter for screening for cardiovascular disorders (principal)
CPT/HCPCS: 76706

== ENCOUNTER → 2024-12-04 07:46 | Outpatient (BNVA) | payer MEDICARE, MEDICAID, SELFPAY | PROVIDERS: PCP Nurse Practitioner Family; Referring Provider Nurse Practitioner Family; Visit Provider Internal Medicine | DX: E11.9 Type 2 diabetes mellitus without complications (principal); E78.2 Mixed hyperlipidemia; K59.00 Constipation, unspecified; R19.7 Diarrhea, unspecified; R14.0 Abdominal distension (gaseous) | CPT/HCPCS: 99204 ==

== ENCOUNTER 2024-12-18 07:34 | Outpatient (CLI) | payer MEDICARE, MEDICAID, SELFPAY ==
--- NOTE | 2024-12-18 08:00 | NM_ITS ---
WS: [id number] NUCLEAR MEDICINE GASTRIC STUDY CLINICAL INFORMATION: r/o gastroparesis TECHNIQUE: Following oral ingestion of cooked egg mixed with 1.06 mCi technetium 99m sulfur colloid, anterior images of the stomach were obtained over the course of 90 minutes. Activity curve was performed over the course of 90 minutes with linear regression analysis. COMPARISON: None. FINDINGS oral ingestion of cooked egg mixture T1 half emptying 85.31 minutes within normal limits 27% emptying at 63 minutes 54% emptying at [address]/CT [place] [id number] IMPRESSION: Normal gastric emptying *Normal median T1 half 90 minutes for solid egg meal (45-110 minutes). Delayed gastric retention is defined as 90% retained at 1 hour, 60% at 2 hour s, 30% at 3 hours, and 10% at 4 hours (normal percent gastric retention is 37-9 0% at 1 hour, 30-60% at 2 hours, and 0-10% at 4 hours).
== END 2024-12-18 07:35 | disposition home or self-care (01) ==
PROVIDERS: PCP Nurse Practitioner Family; Visit Provider Internal Medicine
DX: R14.0 Abdominal distension (gaseous) (principal); R19.7 Diarrhea, unspecified; K59.00 Constipation, unspecified
CPT/HCPCS: 78264; A9541

== ENCOUNTER 2025-02-25 09:15 | Outpatient (CLI) | payer MEDICARE, MEDICAID, SELFPAY ==
[2025-02-25 09:58] LABS: Estmated Average Glucose 157; Hemoglobin A1C 7.1 % (4.0-6.0)
[2025-02-25 10:02] LABS: Alanine Aminotransferase 17 U/L (0-41); Albumin Level 4.6 g/dL (3.5-5.2); Alkaline Phosphatase 72 U/L (40-130); Aspartate Amino Transferase 20 U/L (0-40); Blood Urea Nitrogen 30 mg/dL (8-23); Calcium 10.3 mg/dL (8.5-10.5); Carbon Dioxide 25 mmol/L (22-29); Chloride 102 mmol/L (98-107); Chol HDL Ratio 1.98 mg/dL (1.0-5.00); Cholesterol 95 mg/dL (0-200); Glomerular Filtration Rate 74.8 mL/min (90-130); Glucose 153 mg/dL (65-115); HDL Cholesterol 48 mg/dL (60-100); LDL Cholesterol Calculated 31 mg/dL (50-129); LDL HDL Ratio 0.65 RATIO (0.00-3.22); Osmolality Calculated 295 mOsm/kg (285-295); Sodium 138 mmol/L (136-145); Total Bilirubin 0.8 mg/dL (0.15-1.2); Total Protein 7.6 g/dL (6.6-8.7); Triglycerides 80 mg/dL (0-150)
[2025-02-25 10:04] LABS: Anion Gap 16.9 (5-19); Potassium 5.9 mmol/L (3.5-5.1)
[2025-02-25 10:18] LABS: Creatinine Urine, Random 119 mg/dL (39-259); Microalbumin Random Urine 8 ug/dL (0-20)
[2025-02-25 10:22] LABS: Microalbum Creatinine Ratio Ur 67 mg/dL (0-20)
== END 2025-02-25 09:16 | disposition home or self-care (01) ==
LOC: LAB 09:16
PROVIDERS: PCP Nurse Practitioner Family; Visit Provider Internal Medicine
DX: E11.9 Type 2 diabetes mellitus without complications (principal); E78.2 Mixed hyperlipidemia
CPT/HCPCS: 36415; 80053; 80061; 82044; 83036

== ENCOUNTER 2025-02-27 07:06 | Outpatient (CLI) | payer MEDICARE, MEDICAID, SELFPAY ==
[2025-02-27 08:25] LABS: Blood Urea Nitrogen 32 mg/dL (8-23); Calcium 10.2 mg/dL (8.5-10.5); Carbon Dioxide 22 mmol/L (22-29); Chloride 103 mmol/L (98-107); Glomerular Filtration Rate 84.4 mL/min (90-130); Glucose 103 mg/dL (65-115); Osmolality Calculated 289 mOsm/kg (285-295); Sodium 136 mmol/L (136-145)
[2025-02-27 08:35] LABS: Anion Gap 16.1 (5-19); Potassium 5.1 mmol/L (3.5-5.1)
== END 2025-02-27 07:07 | disposition home or self-care (01) ==
PROVIDERS: PCP Nurse Practitioner Family; Visit Provider Internal Medicine
DX: E87.5 Hyperkalemia (principal)
CPT/HCPCS: 36415; 80048

== ENCOUNTER → 2025-03-04 11:04 | Outpatient (BNVA) | payer MEDICARE, MEDICAID, SELFPAY | PROVIDERS: PCP Nurse Practitioner Family; Visit Provider Internal Medicine | DX: E11.9 Type 2 diabetes mellitus without complications (principal); E78.2 Mixed hyperlipidemia; R14.0 Abdominal distension (gaseous) | CPT/HCPCS: 99214 ==

== ENCOUNTER → 2025-03-17 09:16 | Outpatient (BNVA) | payer MEDICARE, MEDICAID, SELFPAY | PROVIDERS: PCP Nurse Practitioner Family; Visit Provider Internal Medicine | DX: E11.9 Type 2 diabetes mellitus without complications (principal); E78.2 Mixed hyperlipidemia | CPT/HCPCS: 99214 ==

== ENCOUNTER 2025-08-01 06:53 | Emergency (ER) | payer MEDICARE, MEDICAID, SELFPAY ==
[2025-08-01 07:08] VITALS: BP 157/77; PULSE 77; RESP 16; TEMP 36.7; O2SAT 98; BMI 25.2
--- NOTE | 2025-08-01 07:17 | CTR_ITS ---
PROCEDURE INFORMATION: Exam: CT Head Without Contrast Exam date and time: 08/01/2025 7:27 AM Age: 65 years old Clinical indication: Injury or trauma; Fall; Blunt trauma (contusions or hematomas); Additional info: Fall, head injury TECHNIQUE: Imaging protocol: Computed tomography of the head without contrast. Radiation optimization: All CT scans at this facility use at least one of these dose optimization techniques: automated exposure control; mA and/or kV adjustment per patient size (includes targeted exams where dose is matched to clinical indication); or iterative reconstruction. COMPARISON: CT head wo con* [id number] 08/14/2024 3:04 PM RADIATION DOSE METRICS: Total DLP (mGy-cm): 1351.68 FINDINGS: Brain: There is no acute intracranial hemorrhage. There is lucency in the cerebral white matter, likely microvascular disease although non-specific. No evidence of mass. There is no mass effect or midline shift. Pineda white differentiation is intact without evidence of acute infarct. 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 There are no extra-axial fluid collections. Cerebral ventricles: The ventricles and sulci are enlarged, consistent with volume loss / atrophy. No hydrocephalus. Paranasal sinuses: Visualized sinuses are unremarkable. No fluid levels. Mastoid air cells: No significant mastoid effusion. Bones: Unremarkable. No acute fracture. Soft tissues: Unremarkable as visualized. Vasculature: There is vascular calcification. CT/CT head wo con* [id number] IMPRESSION: 1. No evidence of acute intracranial abnormality. No evidence of acute infarction, hemorrhage, or mass. 2. Atrophy and microvascular disease.
--- NOTE | 2025-08-01 07:17 | W.ED.FALL ---
HPI - Fall General: Chief Complaint: Fall Stated Complaint: fall Time Seen by Provider: 08/01/25 07:15 History of Present Illness: 55-year-old male who presents emergency room after having a fall. He bent over to picker feeder some trash and fell forward onto his head. No loss of consciousness. He has a skin tear on his forehead and a skin tear on his arm. Related Data Home Medications ?Medication ?Instructions ?Recorded ?Confirmed albuterol sulfate 90 mcg/actuation 1 puff inhalation Q4H PRN 07/19/22 08/01/25 aerosol inhaler Shortness Of Breath Or Wheezing atorvastatin 40 mg tablet 40 mg PO BEDTIME 07/19/22 08/01/25 spironolactone 25 mg tablet 25 mg PO DAILY 07/19/22 08/01/25 amlodipine 10 mg tablet 10 mg PO DAILY 11/22/23 08/01/25 fluticasone fur. 100 mcg-umeclid 1 ea inhalation DAILY 11/22/23 08/01/25 62.5 mcg-vilant 25 mcg inhalat.powder (Trelegy Ellipta) fluticasone propionate 50 1 spray intranasal BID 11/22/23 08/01/25 mcg/actuation nasal spray,suspension lisinopril 40 mg tablet 40 mg PO DAILY 11/22/23 08/01/25 metoprolol succinate 50 mg 50 mg PO DAILY 11/22/23 08/01/25 tablet,extended release 24 hr clopidogrel 75 mg tablet 75 mg PO DAILY 09/05/24 08/01/25 insulin glargine 100 unit/mL (3 16 unit SUBCUT BEDTIME 09/05/24 08/01/25 mL) subcutaneous pen (Lantus Solostar U-100 Insulin) aspirin 81 mg tablet,delayed 81 mg PO DAILY 11/21/24 08/01/25 release glipizide 10 mg tablet, extended 10 mg PO DAILY 08/01/25 08/01/25 release 24 hr Previous Rx's ?Medication ?Instructions ?Recorded 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 sensor (Dexcom G7 #3 ea 12/04/24 Sensor device) 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,gravity flow irrigator,cont #1 ea 12/04/24 (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 Skin symptoms: Negative except as documented in HPI. Eye symptoms: Negative except as documented in HPI. ENMT symptoms: Negative except as documented in HPI. Respiratory symptoms: Negative except as documented in HPI. Cardiovascular symptoms: Negative except as documented in HPI. Gastrointestinal symptoms: Negative except as documented in HPI. Genitourinary symptoms: Negative except as documented in HPI. Musculoskeletal symptoms: Negative except as documented in HPI. Neurologic symptoms: Negative except as documented in HPI. Psychiatric symptoms: Negative except as documented in HPI. Endocrine symptoms: Negative except as documented in HPI. PFSH ED PFSH: Medical History (Updated 08/01/25 @ 07:48 by Johanna Holloway MD) COPD (chronic obstructive pulmonary disease) Lung mass Surgical History H/O hernia repair Family History Denies family history of Clotting disorder Bleeding disorder Social History Smoking and tobacco/nicotine status: unknown if used tobacco/nicotine Alcohol intake: never Substance/Drug Use: never Lives independently: Yes Household members: none Physical Exam Narrative: EXAM NARRATIVE: General: Alert, no acute distress. Skin: Warm, dry. Skin tear on left forearm Head: Normocephalic, skin tear on forehead. Neck: Supple, trachea midline. Eye: Extraocular movements are intact. Ears, nose, mouth and throat: mucosa moist. Cardiovascular: Regular, Normal peripheral perfusion. Respiratory: Lungs are clear to auscultation, respirations are non-labored, breath sounds are equal, Symmetrical chest wall expansion. Gastrointestinal: Soft, Nontender, Non distended Musculoskeletal: Normal ROM, no deformity. Neurological: Alert and oriented, No focal neurological deficit observed. Psychiatric: Cooperative, appropriate mood & affect. Course Vital Signs: Vital signs: Vital Signs Temperature 98.6 F 08/01/25 07:19 Pulse Rate 75 08/01/25 07:45 Respiratory Rate 16 08/01/25 07:08 Blood Pressure 128/71 08/01/25 07:45 Pulse Oximetry 95 08/01/25 07:45 Oxygen Delivery Me thod Room Air 08/01/25 07:08 MDM - Fall Medical Decision Making Medical decision making: Differential diagnosis including but not limited to and based on the above HPI, review of systems and physical exam: patient with fall and head injury. Subdural hematoma, subarachnoid hemorrhage, concussion, skull fracture. Orders placed to evaluate differential diagnosis based on the above differential, HPI and physical exam CT scan of the head was ordered. CT head: No acute intracranial process. no intracranial hemorrhage, no evidence of infarct. no evidence of acute fracture.This was reviewed and interpreted by myself the ER physician. I reviewed the patient's medical record. Assessment and plan: Head injury Skin tear - Discharged home - Discussed findings and plan with patient. Answered any questions. - Evaluation and treatment of this problem were appropriate in the emergency setting Lab Data Radiology Impressions Head CT 08/01/25 07:17 IMPRESSION: 1. No evidence of acute intracranial abnormality. No evidence of acute infarction, hemorrhage, or mass. 2. Atrophy and microvascular disease. All radiology interpretation(s) finalized by discharge Discharge Plan Discharge Patient Disposition: Home Clinical Impression: Head injury, Skin tear Condition: Stable Prescriptions: No Action clopidogrel 75 mg tablet 75 mg PO DAILY insulin glargine [Lantus Solostar U-100 Insulin] 100 unit/mL (3 mL) insulin pen 16 unit SUBCUT BEDTIME (DME) Dexcom G7 Sensor Device See Rx Instructions .Route Qty: 3 3RF Rx Instructions: change sensors every 10 days (DME) Dexcom G7 Farm Equipment Assembler Misc See Rx Instructions .Route Qty: 1 0RF Rx Instructions: As directed atorvastatin 40 mg tablet 40 mg PO BEDTIME spironolactone 25 mg tablet 25 mg PO DAILY albuterol sulfate 90 mcg/actuation HFA aerosol inhaler 1 puff INHALATION Q4H PRN (Reason: Shortness Of Breath Or Wheezing) metoprolol succinate 50 mg tablet extended release 24 hr 50 mg PO DAILY amlodipine 10 mg tablet 10 mg PO DAILY lisinopril 40 mg tablet 40 mg PO DAILY fluticasone propionate 50 mcg/actuation [place],Suspension 1 spray INTRANASAL BID Rx Instructions: administer into each nostril Trelegy Ellipta 100-62.5-25 mcg blister with device 1 ea INHALATION DAILY aspirin [Aspir-81] 81 mg Tablet,Delayed Release (Dr/Ec) 81 mg PO DAILY glipizide 10 mg tablet extended release 24hr 10 mg PO DAILY Discharge Orders: Discharge ED (Routine); Ordered 08/01/25 Ordered By: Johanna Holloway Referrals: Sp,REBEKAH HewittP [Primary Care Provider, Nurse Practitioner] Discharge Diet: Usual diet Discharge Activity: Increase activity as tolerated Patient Instructions: Skin Tear (ED), Opioid Safety, Pain Management, Patient Portal & [facility] Instructions Activity Restrictions/Additional Instructions: Thank you for choosing [facility] for your healthcare needs today. You have been screened and evaluated and felt safe for discharge. Health conditions do change or evolve sometimes and as such it is important that you follow up with your Primary Doctor to be re checked, 3-5 days is a general good time frame for follow up. You are always welcome to return to the ED for re assessment if your symptoms are worsening or you have new concerns Print Language: Kazakh Coding Level of Care Code ED Clutch Assembler for Lidia An
[2025-08-01 07:19] VITALS: PULSE 76; TEMP 37; O2SAT 96
[2025-08-01 07:45] VITALS: BP 128/71; PULSE 75; O2SAT 95
[2025-08-01] MEDS: bacitracin ointment Pkt 1 EACH TOPICAL (09:05)
[2025-08-01 09:14] VITALS: BP 154/82; PULSE 81; O2SAT 93
== END 2025-08-01 09:19 | disposition home or self-care (01) ==
PROVIDERS: Emergency Provider Emergency Medicine; PCP Nurse Practitioner Family
DX: S09.90XA Unspecified injury of head, initial encounter (principal); S41.112A Laceration without foreign body of left upper arm, initial encounter; Z79.4 Long term (current) use of insulin; Z79.82 Long term (current) use of aspirin; J44.9 Chronic obstructive pulmonary disease, unspecified; W19.XXXA Unspecified fall, initial encounter
CPT/HCPCS: 70450; 99284; J9999

== ENCOUNTER 2025-08-17 09:45 | Emergency (ER) | payer MEDICARE, MEDICAID, SELFPAY ==
[2025-08-17 09:57] VITALS: BP 145/67; PULSE 63; RESP 18; TEMP 36.7; O2SAT 96; BMI 24.3
--- NOTE | 2025-08-17 10:04 | CTR_ITS ---
PROCEDURE INFORMATION: Exam: CT Abdomen And Pelvis With Contrast Exam date and time: 08/17/2025 11:12 AM Age: 65 years old Clinical indication: Abdominal pain; Localized; Lower; Additional info: Low abd pain, uncontrollable diarrhea TECHNIQUE: Imaging protocol: Computed tomography of the abdomen and pelvis with contrast. Radiation optimization: All CT scans at this facility use at least one of these dose optimization techniques: automated exposure control; mA and/or kV adjustment per patient size (includes targeted exams where dose is matched to clinical indication); or iterative reconstruction. Contrast material: OMNI 350; Contrast volume: 100 ml; Contrast route: INTRAVENOUS (IV); COMPARISON: CT abdomen pelvis w con* [id number] 05/06/2022 7:03 AM RADIATION DOSE METRICS: Total DLP (mGy-cm): 507.97 FINDINGS: Lungs: Curvilinear scarring and ground-glass opacities/atelectasis at the right lung base is seen. Liver: Normal. No mass. Gallbladder and biliary ducts: Normal. No calcified stones. No ductal dilation. Pancreas: Normal. No ductal dilation. Spleen: Normal. No splenomegaly. Adrenal glands: Normal. No mass. Kidneys and ureters: Normal. No hydronephrosis. Stomach and bowel: Unremarkable. No obstruction. No mucosal thickening. Appendix: No evidence of appendicitis. Intraperitoneal space: Unremarkable. No free air. No significant fluid collection. Vasculature: Unremarkable. No abdominal aortic aneurysm. Lymph nodes: Unremarkable. No enlarged lymph nodes. Urinary bladder: Unremarkable as visualized. Reproductive: Unremarkable as visualized. Bones/joints: Unremarkable. No acute fracture. Soft tissues: Status post bilateral inguinal hernia repairs. CT/CT abdomen pelvis w con* [id number] IMPRESSION: 1. No acute findings. 2. Other findings as detailed above.
--- NOTE | 2025-08-17 10:08 | W.ED.ABDPA2 ---
Documented by User: TRINITY Flores 08/17/25 12:27 HPI - Abdominal Pain General: Chief Complaint: Abdominal Pain Stated Complaint: lower abd pain Time Seen by Provider: 08/17/25 09:57 Source: patient Mode of arrival: ambulatory Limitations: no limitations History of Present Illness: Patient is a 65-year-old male with past medical history of COPD and lung cancer presenting to the emergency department complaining of lower abdominal pain beginning yesterday morning. States he has also had profuse diarrhea, which has since become uncontrollable. Notes that he has had bowel oozing before but never this severe as he woke up with this morning with his bed soaked. States he has also had some hesitancy with urination. Appetite has been unchanged. He is not reporting any nausea or vomiting. No blood in his stool. No back pain. Pain primarily to the bilateral lower quadrants, and it feels like a fullness sensation. He is not reporting any fevers or chills, chest pain or shortness of breath. No previous abdominal surgeries or history of bowel obstruction. States that prior to 2 days ago his bowel habits were seemingly normal. At this time his vitals are stable. Denies needing pain or nausea medication. Denies recent antibiotic use. MD elicited complaint: abdominal pain Onset (ago): day(s) Pain Consistency: constant Location: RLQ and LLQ Severity: mild Quality: cramping Exacerbating factors: nothing Relieving factors: nothing Associated Symptoms: Reports diarrhea and fecal incontinence; Denies bloating, chills, constipation, dysuria, fever(s), hematochezia, nausea and vomiting Related Data Home Medications ?Medication ?Instructions ?Recorded ?Confirmed albuterol sulfate 90 mcg/actuation 1 puff inhalation Q4H PRN 07/19/22 08/17/25 aerosol inhaler Shortness Of Breath Or Wheezing atorvastatin 40 mg tablet 40 mg PO BEDTIME 07/19/22 08/17/25 spironolactone 25 mg tablet 25 mg PO DAILY 07/19/22 08/17/25 amlodipine 10 mg tablet 10 mg PO DAILY 11/22/23 08/17/25 fluticasone fur. 100 mcg-umeclid 1 ea inhalation DAILY 11/22/23 08/17/25 62.5 mcg-vilant 25 mcg inhalat.powder (Trelegy Ellipta) fluticasone propionate 50 1 spray intranasal BID 11/22/23 08/17/25 mcg/actuation nasal spray,suspension lisinopril 40 mg tablet 40 mg PO DAILY 11/22/23 08/17/25 metoprolol succinate 50 mg 50 mg PO DAILY 11/22/23 08/17/25 tablet,extended release 24 hr clopidogrel 75 mg tablet 75 mg PO DAILY 09/05/24 08/17/25 insulin glargine 100 unit/mL (3 16 unit SUBCUT BEDTIME 09/05/24 08/17/25 mL) subcutaneous pen (Lantus Solostar U-100 Insulin) aspirin 81 mg tablet,delayed 81 mg PO DAILY 11/21/24 08/17/25 release glipizide 10 mg tablet, extended 10 mg PO DAILY 08/01/25 08/17/25 release 24 hr bupropion HCl 150 mg tablet,12 hr 150 mg PO BID 08/17/25 08/17/25 sustained-release Previous Rx's ?Medication ?Instructions ?Recorded 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 sensor (Dexcom G7 #3 ea 12/04/24 Sensor device) 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,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,cont #1 ea 12/04/24 (Dexcom G7 [employer] Manager) Allergies Allergy/AdvReac Type Severity Reaction Status Date / Time No Known Allergies Allergy Verified 03/14/25 12:37 Review of Systems General: Reports: 10 or more systems reviewed and unremarkable except in HPI and below Const: Denies: fever(s), chills, change in appetite, change in weight or diaphoresis ENMT: Denies: throat pain or hoarseness Card: Denies: chest pain, palpitations or lightheadedness Resp: Denies: dyspnea, productive cough or wheezing GI: Reports: abdominal pain, diarrhea and fecal incontinence; Denies: nausea, vomiting, constipation, bloating or hematochezia : Denies: flank pain, difficulty urinating, dysuria, urinary frequency or urinary urgency Musc: Denies: neck pain or back pain Skin/Breast: Denies: rash or new lesions Neuro: Denies: headache(s) or dizziness PFSH ED PFSH: Medical History COPD (chronic obstructive pulmonary disease) Lung mass Surgical History H/O hernia repair Family History Denies family history of Clotting disorder Bleeding disorder Social History Smoking and tobacco/nicotine status: unknown if used tobacco/nicotine Alcohol intake: never Substance/Drug Use: never Lives independently: Yes Household members: none Physical Exam Const: COMMON NORMALS: no acute distress, patient oriented x3, no limitations, alert and well nourished GENERAL APPEARANCE: cooperative and comfortable ORIENTATION/CONSCIOUSNESS: Yes awake OTHER: Nontoxic-appearing Neck/C-Spine: COMMON NORMALS: full ROM, supple and no meningeal signs Resp: COMMON NORMALS: normal respiratory effort, No retractions, No use of accessory muscles and clear to auscultation bilaterally AUSCULTATION: clear to auscultation bilaterally, no crackles, no rales, no rhonchi and no wheezes Cardio: COMMON NORMALS: regular rate, regular rhythm, No gallops present (Cardio), No clicks present (Cardio), No murmurs present (Cardio), No rub (Cardio) and Peripheral pulses 2+ throughout RATE: regular rate RHYTHM: regular rhythm PERIPHERAL PULSES: Peripheral pulses 2+ throughout GI: COMMON NORMALS: Normal to inspection, nondistended, normoactive bowel sounds present, Soft to palpation, No hepatosplenomegaly present and no masses AUSCULTATION: Yes normoactive bowel sounds PALPATION: Yes Soft to palpation, Yes Tenderness to palpation present (GI) Details: LLQ and RLQ, No Guarding due to palpation present (GI), No Rigid due to palpation and Yes No hepatosplenomegaly present RECTAL EXAM: Yes deferred Extremity: COMMON NORMALS: normal to inspection and full ROM Neuro: COMMON NORMALS: patient oriented x3, moves all extremities, no focal motor deficits and no sensory deficits noted SENSORIUM/ORIENTATION: Yes alert MENINGEAL SIGNS: Yes no meningeal signs Psych: COMMON NORMALS: mental status grossly normal, cooperative and speech normal SPEECH: Yes normal speech Skin: COMMON NORMALS: no rashes or lesions noted GENERAL SKIN EXAM: no rashes or lesions noted Course Vital Signs: Vital signs: Vital Signs Temperature 98.1 F 08/17/25 09:57 Pulse Rate 63 08/17/25 09:57 Respiratory Rate 18 08/17/25 09:57 Blood Pressure 145/67 08/17/25 09:57 Pulse Oximetry 96 08/17/25 09:57 Oxygen Delivery Me thod Room Air 08/17/25 09:57 MDM - Abdominal Pain Medical Decision Making This patient presented for lower abdominal pain for past couple days associated with diarrhea, states he has a history of diarrhea that is profuse like today but has never been this severe. He has had no diarrhea here in the ED. Overall nontoxic-appearing, afebrile. No history of bowel obstruction. Labs are reassuring, urinalysis negative. CT abdomen pelvis does not show any acute findings. Suspect viral gastroenteritis, he is stable for discharge, notes improvement after fluids given IV here in the ED. He will be allowed discharge home encouraged to follow-up with primary care. Return precautions given. Lab Data 08/17/25 10:19 08/17/25 10:19 Labs/Radiology: Radiology Impressions Abdomen/Pelvis CT 08/17/25 10:04 IMPRESSION: 1. No acute findings. 2. Other findings as detailed above. Laboratory Results WBC 10.98 10^3/uL (3.29-11.43) 08/17/25 10:19 RBC 4.63 10^6/uL (3.85-5.65) 08/17/25 10:19 Hgb 15.40 g/dL (11.27-16.99) 08/17/25 10:19 Hct 45.4 % (37-53) 08/17/25 10:19 MCV 98.1 fl (82-101) 08/17/25 10:19 MCH 33.3 pg (27-33) H 08/17/25 10:19 MCHC 33.9 g/dL (30-55) 08/17/25 10:19 RDW 12.8 % (12.1-15.1) 08/17/25 10:19 Plt Count 240 10^3/cmm (157-399) 08/17/25 10:19 MPV 9.8 fL (7.4-10.4) 08/17/25 10:19 Neut % (Auto) 80.6 % 08/17/25 10:19 Lymph % (Auto) 11.8 % 08/17/25 10:19 Lake % (Auto) 6.0 % 08/17/25 10:19 Eos % (Auto) 1.0 % 08/17/25 10:19 Baso % (Auto) 0.4 % 08/17/25 10:19 Neut # (Auto) 8.85 10^3/uL (1.8-7.7) H 08/17/25 10:19 Lymph # (Auto) 1.3 10^3/uL (0.8-4.8) 08/17/25 10:19 Lake # (Auto) 0.7 10^3/uL (0.2-0.9) 08/17/25 10:19 Eos # (Auto) 0.1 10^3/uL (0.0-0.8) 08/17/25 10:19 Baso # (Auto) 0.0 10^3/uL (0.0-0.1) 08/17/25 10:19 Nucleated RBC % (auto) 0 % 08/17/25 10:19 Nucleated RBCs # 0.0 /100WBC 08/17/25 10:19 Sodium 140 mmol/L (136-145) 08/17/25 10:19 Potassium 4.1 mmol/L (3.5-5.1) 08/17/25 10:19 Chloride 104 mmol/L (98-107) 08/17/25 10:19 Carbon Dioxide 23 mmol/L (22-29) 08/17/25 10:19 Anion Gap 17.1 (5-19) 08/17/25 10:19 BUN 28 mg/dL (8-23) H 08/17/25 10:19 Creatinine 0.9 mg/dL (0.7-1.2) 08/17/25 10:19 GFR Calculation 84.4 mL/min (90-130) L 08/17/25 10:19 Glucose 182 mg/dL (65-115) H 08/17/25 10:19 Calculated Osmolality 300 mOsm/kg (285-295) H 08/17/25 10:19 Calcium 9.8 mg/dL (8.5-10.5) 08/17/25 10:19 Total Bilirubin 1.0 mg/dL (0.15-1.2) 08/17/25 10:19 AST 14 U/L (0-40) 08/17/25 10:19 ALT 12 U/L (0-41) 08/17/25 10:19 Alkaline Phosphatase 63 U/L (40-130) 08/17/25 10:19 Total Protein 6.6 g/dL (6.6-8.7) 08/17/25 10:19 Albumin 4.2 g/dL (3.5-5.2) 08/17/25 10:19 Globulin 2.4 g/dL (1.3-4.6) 08/17/25 10:19 Lipase 11 U/L (13-60) L 08/17/25 10:19 Urine Color Yellow (Yellow) 08/17/25 11:43 Urine Appearance Clear (CLEAR) 08/17/25 11:43 Urine pH 5 (5-7) 08/17/25 11:43 Ur Specific [place] 1.010 (1.005-1.030) 08/17/25 11:43 Urine Protein Neg (Negative) 08/17/25 11:43 Urine Glucose (UA) Norm (Normal) 08/17/25 11:43 Urine Ketones Negative (Negative) 08/17/25 11:43 Urine Blood Trace (Negative) H 08/17/25 11:43 Urine Nitrate Negative (Negative) 08/17/25 11:43 Urine Bilirubin Neg (Negative) 08/17/25 11:43 Urine Urobilinogen Norm mg/dL (Negative) 08/17/25 11:43 Ur Leukocyte Esterase Negative (Negative) 08/17/25 11:43 Urine RBC 0-4 /hpf (0-2) H 08/17/25 11:43 Urine WBC None /hpf (0-5) 08/17/25 11:43 Ur Squamous Epith Cells None /hpf (0-5) 08/17/25 11:43 Amorphous Sediment Not Reportable 08/17/25 11:43 Urine Bacteria None /hpf (NONE) 08/17/25 11:43 All radiology interpretation(s) finalized by discharge Discharge Plan Discharge Patient Disposition: Home Clinical Impression: Gastroenteritis Condition: Stable Prescriptions: No Action clopidogrel 75 mg tablet 75 mg PO DAILY insulin glargine [Lantus Solostar U-100 Insulin] 100 unit/mL (3 mL) insulin pen 16 unit SUBCUT BEDTIME (DME) Dexcom G7 Sensor Device See Rx Instructions .Route Qty: 3 3RF Rx Instructions: change sensors every 10 days (DME) Dexcom G7 [employer] Misc See Rx Instructions .Route Qty: 1 0RF Rx Instructions: As directed atorvastatin 40 mg tablet 40 mg PO BEDTIME spironolactone 25 mg tablet 25 mg PO DAILY albuterol sulfate 90 mcg/actuation HFA aerosol inhaler 1 puff INHALATION Q4H PRN (Reason: Shortness Of Breath Or Wheezing) bupropion HCl 150 mg tablet sustained-release 12 hr 150 mg PO BID metoprolol succinate 50 mg tablet extended release 24 hr 50 mg PO DAILY amlodipine 10 mg tablet 10 mg PO DAILY lisinopril 40 mg tablet 40 mg PO DAILY fluticasone propionate 50 mcg/actuation [place],Suspension 1 spray INTRANASAL BID Rx Instructions: administer into each nostril Trelegy Ellipta 100-62.5-25 mcg blister with device 1 ea INHALATION DAILY aspirin [Aspir-81] 81 mg Tablet,Delayed Release (Dr/Ec) 81 mg PO DAILY glipizide 10 mg tablet extended release 24hr 10 mg PO DAILY Discharge Orders: Discharge ED (Routine); Ordered 08/17/25 Ordered By: Ishaan Pedroza Referrals: Marcelina Snowden FNP [Primary Care Provider, Nurse Practitioner] Patient Instructions: Patient Portal & Sukumar Instructions Activity Restrictions/Additional Instructions: Viral Gastroenteritis Discharge You have been diagnosed with viral gastroenteritis. This is a common stomach infection that causes diarrhea, nausea, vomiting, and sometimes stomach pain. Most people recover fully with supportive care at home. What to do at home: - Stay hydrated: Drink plenty of fluids, such as water, clear broths, or oral rehydration solutions (like Pedialyte or Enfalyte). Small, frequent sips are best if you feel nauseated. Sports drinks, diluted juice, or salted crackers can help replace lost fluids and salts. - Eat as tolerated: You may return to your normal diet within 4?6 hours after starting fluids. If you feel up to it, eat bland foods like rice, bananas, toast, or applesauce. Avoid fatty, spicy, or dairy foods until you feel better. - Rest: Take it easy and allow your body to recover. Medicines: - For diarrhea: Lbrb-[id number] medicines like loperamide (Imodium) may help with watery diarrhea, but do not use if you have blood in your stool or a high fever. - For nausea/vomiting: If you have severe nausea, medicines like ondansetron may be prescribed, but routine use is not recommended unless needed to help you keep fluids down. - Antibiotics are not needed for viral gastroenteritis. Prevent spreading the infection: - Wash your hands well with soap and water, especially after using the bathroom and before eating or preparing food. - Avoid preparing food for others, swimming, or close contact until symptoms are gone. - Clean surfaces and bathroom areas regularly. When to seek medical attention: - Signs of dehydration: dry mouth, little or no urine, dizziness, weakness, or confusion. - Blood in stool, high fever, severe abdominal pain, or vomiting that won?t stop. - If symptoms last more than 7 days or worsen. Follow-up: If you have other health conditions (like diabetes, kidney disease, or immune problems), or if you are unable to keep fluids down, contact your healthcare provider. Most people recover in a few days. If you have any questions or concerns, please call your clinic. Print Language: [place] Coding Level of Care Code ED Patient Services Assistant for Chg Fwd Documented by User: Tiago Bradshaw DO 08/17/25 12:36 HPI - Abdominal Pain General: Chief Complaint: Abdominal Pain Stated Complaint: lower abd pain Time Seen by Provider: 08/17/25 09:57 Related Data Home Medications ?Medication ?Instructions ?Recorded ?Confirmed albuterol sulfate 90 mcg/actuation 1 puff inhalation Q4H PRN 07/19/22 08/17/25 aerosol inhaler Shortness Of Breath Or Wheezing atorvastatin 40 mg tablet 40 mg PO BEDTIME 07/19/22 08/17/25 spironolactone 25 mg tablet 25 mg PO DAILY 07/19/22 08/17/25 amlodipine 10 mg tablet 10 mg PO DAILY 11/22/23 08/17/25 fluticasone fur. 100 mcg-umeclid 1 ea inhalation DAILY 11/22/23 08/17/25 62.5 mcg-vilant 25 mcg inhalat.powder (Trelegy Ellipta) fluticasone propionate 50 1 spray intranasal BID 11/22/23 08/17/25 mcg/actuation nasal spray,suspension lisinopril 40 mg tablet 40 mg PO DAILY 11/22/23 08/17/25 metoprolol succinate 50 mg 50 mg PO DAILY 11/22/23 08/17/25 tablet,extended release 24 hr clopidogrel 75 mg tablet 75 mg PO DAILY 09/05/24 08/17/25 insulin glargine 100 unit/mL (3 16 unit SUBCUT BEDTIME 09/05/24 08/17/25 mL) subcutaneous pen (Lantus Solostar U-100 Insulin) aspirin 81 mg tablet,delayed 81 mg PO DAILY 11/21/24 08/17/25 release glipizide 10 mg tablet, extended 10 mg PO DAILY 08/01/25 08/17/25 release 24 hr bupropion HCl 150 mg tablet,12 hr 150 mg PO BID 08/17/25 08/17/25 sustained-release Previous Rx's ?Medication ?Instructions ?Recorded 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 sensor (Dexcom G7 #3 ea 12/04/24 Sensor device) 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,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,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 12/04/24 (Dexcom G7 [employer] Manager) Allergies Allergy/AdvReac Type Severity Reaction Status Date / Time No Known Allergies Allergy Verified 03/14/25 12:37 [facility] ED PFSH: Medical History COPD (chronic obstructive pulmonary disease) Lung mass Surgical History H/O hernia repair Family History Denies family history of Clotting disorder Bleeding disorder Social History Smoking and tobacco/nicotine status: unknown if used tobacco/nicotine Alcohol intake: never Substance/Drug Use: never Lives independently: Yes Household members: none Course Vital Signs: Vital signs: Vital Signs Temperature 98.1 F 08/17/25 09:57 Pulse Rate 63 08/17/25 09:57 Respiratory Rate 18 08/17/25 09:57 Blood Pressure 145/67 08/17/25 09:57 Pulse Oximetry 96 08/17/25 09:57 Oxygen Delivery Me thod Room Air 08/17/25 09:57 MDM - Abdominal Pain Medical Decision Making This patient presented for lower abdominal pain for past couple days associated with diarrhea, states he has a history of diarrhea that is profuse like today but has never been this severe. He has had no diarrhea here in the ED. Overall nontoxic-appearing, afebrile. No history of bowel obstruction. Labs are reassuring, urinalysis negative. CT abdomen pelvis does not show any acute findings. Suspect viral gastroenteritis, he is stable for discharge, notes improvement after fluids given IV here in the ED. He will be allowed discharge home encouraged to follow-up with primary care. Return precautions given. Chart reviewed and patient discussed with midlevel. Agree with assessment and plan. Lab Data 08/17/25 10:19 08/17/25 10:19 Labs/Radiology: Radiology Impressions Abdomen/Pelvis CT 08/17/25 10:04 IMPRESSION: 1. No acute findings. 2. Other findings as detailed above. Laboratory Results WBC 10.98 10^3/uL (3.29-11.43) 08/17/25 10:19 RBC 4.63 10^6/uL (3.85-5.65) 08/17/25 10:19 Hgb 15.40 g/dL (11.27-16.99) 08/17/25 10:19 Hct 45.4 % (37-53) 08/17/25 10:19 MCV 98.1 fl (82-101) 08/17/25 10:19 MCH 33.3 pg (27-33) H 08/17/25 10:19 MCHC 33.9 g/dL (30-55) 08/17/25 10:19 RDW 12.8 % (12.1-15.1) 08/17/25 10:19 Plt Count 240 10^3/cmm (157-399) 08/17/25 10:19 MPV 9.8 fL (7.4-10.4) 08/17/25 10:19 Neut % (Auto) 80.6 % 08/17/25 10:19 Lymph % (Auto) 11.8 % 08/17/25 10:19 Lake % (Auto) 6.0 % 08/17/25 10:19 Eos % (Auto) 1.0 % 08/17/25 10:19 Baso % (Auto) 0.4 % 08/17/25 10:19 Neut # (Auto) 8.85 10^3/uL (1.8-7.7) H 08/17/25 10:19 Lymph # (Auto) 1.3 10^3/uL (0.8-4.8) 08/17/25 10:19 Lake # (Auto) 0.7 10^3/uL (0.2-0.9) 08/17/25 10:19 Eos # (Auto) 0.1 10^3/uL (0.0-0.8) 08/17/25 10:19 Baso # (Auto) 0.0 10^3/uL (0.0-0.1) 08/17/25 10:19 Nucleated RBC % (auto) 0 % 08/17/25 10:19 Nucleated RBCs # 0.0 /100WBC 08/17/25 10:19 Sodium 140 mmol/L (136-145) 08/17/25 10:19 Potassium 4.1 mmol/L (3.5-5.1) 08/17/25 10:19 Chloride 104 mmol/L (98-107) 08/17/25 10:19 Carbon Dioxide 23 mmol/L (22-29) 08/17/25 10:19 Anion Gap 17.1 (5-19) 08/17/25 10:19 BUN 28 mg/dL (8-23) H 08/17/25 10:19 Creatinine 0.9 mg/dL (0.7-1.2) 08/17/25 10:19 GFR Calculation 84.4 mL/min (90-130) L 08/17/25 10:19 Glucose 182 mg/dL (65-115) H 08/17/25 10:19 Calculated Osmolality 300 mOsm/kg (285-295) H 08/17/25 10:19 Calcium 9.8 mg/dL (8.5-10.5) 08/17/25 10:19 Total Bilirubin 1.0 mg/dL (0.15-1.2) 08/17/25 10:19 AST 14 U/L (0-40) 08/17/25 10:19 ALT 12 U/L (0-41) 08/17/25 10:19 Alkaline Phosphatase 63 U/L (40-130) 08/17/25 10:19 Total Protein 6.6 g/dL (6.6-8.7) 08/17/25 10:19 Albumin 4.2 g/dL (3.5-5.2) 08/17/25 10:19 Globulin 2.4 g/dL (1.3-4.6) 08/17/25 10:19 Lipase 11 U/L (13-60) L 08/17/25 10:19 Urine Color Yellow (Yellow) 08/17/25 11:43 Urine Appearance Clear (CLEAR) 08/17/25 11:43 Urine pH 5 (5-7) 08/17/25 11:43 Ur Specific [place] 1.010 (1.005-1.030) 08/17/25 11:43 Urine Protein Neg (Negative) 08/17/25 11:43 Urine Glucose (UA) Norm (Normal) 08/17/25 11:43 Urine Ketones Negative (Negative) 08/17/25 11:43 Urine Blood Trace (Negative) H 08/17/25 11:43 Urine Nitrate Negative (Negative) 08/17/25 11:43 Urine Bilirubin Neg (Negative) 08/17/25 11:43 Urine Urobilinogen Norm mg/dL (Negative) 08/17/25 11:43 Ur Leukocyte Esterase Negative (Negative) 08/17/25 11:43 Urine RBC 0-4 /hpf (0-2) H 08/17/25 11:43 Urine WBC None /hpf (0-5) 08/17/25 11:43 Ur Squamous Epith Cells None /hpf (0-5) 08/17/25 11:43 Amorphous Sediment Not Reportable 08/17/25 11:43 Urine Bacteria None /hpf (NONE) 08/17/25 11:43 Discharge Plan Discharge Patient Disposition: Home Clinical Impression: Gastroenteritis Condition: Stable Prescriptions: No Action clopidogrel 75 mg tablet 75 mg PO DAILY insulin glargine [Lantus Solostar U-100 Insulin] 100 unit/mL (3 mL) insulin pen 16 unit SUBCUT BEDTIME (DME) Dexcom G7 Sensor Device See Rx Instructions .Route Qty: 3 3RF Rx Instructions: change sensors every 10 days (DME) Dexcom G7 [employer] Manager Misc See Rx Instructions .Route Qty: 1 0RF Rx Instructions: As directed atorvastatin 40 mg tablet 40 mg PO BEDTIME spironolactone 25 mg tablet 25 mg PO DAILY albuterol sulfate 90 mcg/actuation HFA aerosol inhaler 1 puff INHALATION Q4H PRN (Reason: Shortness Of Breath Or Wheezing) bupropion HCl 150 mg tablet sustained-release 12 hr 150 mg PO BID metoprolol succinate 50 mg tablet extended release 24 hr 50 mg PO DAILY amlodipine 10 mg tablet 10 mg PO DAILY lisinopril 40 mg tablet 40 mg PO DAILY fluticasone propionate 50 mcg/actuation [place],Suspension 1 spray INTRANASAL BID Rx Instructions: administer into each nostril Trelegy Ellipta 100-62.5-25 mcg blister with device 1 ea INHALATION DAILY aspirin [Aspir-81] 81 mg Tablet,Delayed Release (Dr/Ec) 81 mg PO DAILY glipizide 10 mg tablet extended release 24hr 10 mg PO DAILY Discharge Orders: Discharge ED (Routine); Ordered 08/17/25 Ordered By: Ishaan Pedroza Referrals: Marcelina Snowden FNP [Primary Care Provider, Nurse Practitioner] Patient Instructions: Patient Portal & Sukumar Instructions Activity Restrictions/Additional Instructions: Viral Gastroenteritis Discharge You have been diagnosed with viral gastroenteritis. This is a common stomach infection that causes diarrhea, nausea, vomiting, and sometimes stomach pain. Most people recover fully with supportive care at home. What to do at home: - Stay hydrated: Drink plenty of fluids, such as water, clear broths, or oral rehydration solutions (like Pedialyte or Enfalyte). Small, frequent sips are best if you feel nauseated. Sports drinks, diluted juice, or salted crackers can help replace lost fluids and salts. - Eat as tolerated: You may return to your normal diet within 4?6 hours after starting fluids. If you feel up to it, eat bland foods like rice, bananas, toast, or applesauce. Avoid fatty, spicy, or dairy foods until you feel better. - Rest: Take it easy and allow your body to recover. Medicines: - For diarrhea: [id number] medicines like loperamide (Imodium) may help with watery diarrhea, but do not use if you have blood in your stool or a high fever. - For nausea/vomiting: If you have severe nausea, medicines like ondansetron may be prescribed, but routine use is not recommended unless needed to help you keep fluids down. - Antibiotics are not needed for viral gastroenteritis. Prevent spreading the infection: - Wash your hands well with soap and water, especially after using the bathroom and before eating or preparing food. - Avoid preparing food for others, swimming, or close contact until symptoms are gone. - Clean surfaces and bathroom areas regularly. When to seek medical attention: - Signs of dehydration: dry mouth, little or no urine, dizziness, weakness, or confusion. - Blood in stool, high fever, severe abdominal pain, or vomiting that won?t stop. - If symptoms last more than 7 days or worsen. Follow-up: If you have other health conditions (like diabetes, kidney disease, or immune problems), or if you are unable to keep fluids down, contact your healthcare provider. Most people recover in a few days. If you have any questions or concerns, please call your clinic. Print Language: [place] Coding Level of Care Code ED Patient Services Assistant for Lidia An
[2025-08-17 10:27] LABS: Hematocrit 45.4 % (37-53); Hemoglobin 15.40 g/dL (11.27-16.99); Mean Corpuscular HGB Conc 33.9 g/dL (30-55); Mean Corpuscular Hemoglobin 33.3 pg (27-33); Mean Corpuscular Volume 98.1 fl (82-101); Nucleated Red Blood Cells % 0 %; Platelet Count 240 10^3/cmm (157-399); Red Blood Count 4.63 10^6/uL (3.85-5.65); White Blood Count 10.98 10^3/uL (3.29-11.43)
[2025-08-17 10:57] LABS: Alanine Aminotransferase 12 U/L (0-41); Albumin Level 4.2 g/dL (3.5-5.2); Alkaline Phosphatase 63 U/L (40-130); Anion Gap 17.1 (5-19); Aspartate Amino Transferase 14 U/L (0-40); Blood Urea Nitrogen 28 mg/dL (8-23); Calcium 9.8 mg/dL (8.5-10.5); Carbon Dioxide 23 mmol/L (22-29); Chloride 104 mmol/L (98-107); Creatinine Clr Calc Pharmacy 80.0182; Globulin 2.4 g/dL (1.3-4.6); Glucose 182 mg/dL (65-115); Lipase 11 U/L (13-60); Osmolality Calculated 300 mOsm/kg (285-295); Potassium 4.1 mmol/L (3.5-5.1); Sodium 140 mmol/L (136-145); Total Protein 6.6 g/dL (6.6-8.7)
[2025-08-17] MEDS: iohexol 350 mg/mL 500 mL Btl (per mL) IV (11:17)
[2025-08-17 12:01] LABS: Glucose Urine UA Norm (Normal); Nitrate Urine Negative (Negative); Specific Gravity, Urine 1.010 (1.005-1.030)
[2025-08-17 12:02] LABS: Add Urine Microscopic? YES
== END 2025-08-17 12:50 | disposition home or self-care (01) ==
PROVIDERS: Family Medicine; Emergency Provider Physician Assistant; PCP Nurse Practitioner Family
DX: K52.9 Noninfective gastroenteritis and colitis, unspecified (principal); Z79.02 Long term (current) use of antithrombotics/antiplatelets; Z79.4 Long term (current) use of insulin; Z79.82 Long term (current) use of aspirin; J44.9 Chronic obstructive pulmonary disease, unspecified
CPT/HCPCS: 36415; 74177; 80053; 81001; 83690; 85025; 99285; J7030

== ENCOUNTER 2025-08-29 05:50 | Emergency (ER) | payer MEDICARE, MEDICAID, SELFPAY ==
--- NOTE | 2025-08-29 05:52 | XR_ITS ---
WS: [id number] OSWALD, AP view, 08/29/2025 Clinical Data: constipation Comparison: Acute abdomen series, 01/26/2022 Findings: No abnormal intraabdominal masses or calcifications are seen. There is no dilatated small bowel or evidence of obstruction. There is a large amount of fecal material throughout the colon. XR/XR [id number] Impression: Large amount of fecal material in the colon.
[2025-08-29 06:12] VITALS: BP 125/70; PULSE 100; RESP 18; TEMP 36.9; O2SAT 98; BMI 24.3
--- NOTE | 2025-08-29 06:30 | W.ED.NAVMDI ---
HPI - Nausea/Vomiting/Diarrhea General: Chief complaint: Nausea/Vomiting/Diarrhea Stated complaint: Constipation Time Seen by Provider: 08/29/25 06:22 Source: patient Mode of arrival: ambulatory Limitations: no limitations History of Present Illness: 65-year-old male states over last week he has been having constipation states he has some slight stool at times but feels very constipated. He states had some slight lower abdominal pain 2. States pains been crampy he rates it a 3 out of 10. He denies any blood in his stool denies any fever denies any vomiting denies any worse improved factors. Related Data Home Medications ?Medication ?Instructions ?Recorded ?Confirmed albuterol sulfate 90 mcg/actuation 1 puff inhalation Q4H PRN 07/19/22 08/17/25 aerosol inhaler Shortness Of Breath Or Wheezing atorvastatin 40 mg tablet 40 mg PO BEDTIME 07/19/22 08/17/25 spironolactone 25 mg tablet 25 mg PO DAILY 07/19/22 08/17/25 amlodipine 10 mg tablet 10 mg PO DAILY 11/22/23 08/17/25 fluticasone fur. 100 mcg-umeclid 1 ea inhalation DAILY 11/22/23 08/17/25 62.5 mcg-vilant 25 mcg inhalat.powder (Trelegy Ellipta) fluticasone propionate 50 1 spray intranasal BID 11/22/23 08/17/25 mcg/actuation nasal spray,suspension lisinopril 40 mg tablet 40 mg PO DAILY 11/22/23 08/17/25 metoprolol succinate 50 mg 50 mg PO DAILY 11/22/23 08/17/25 tablet,extended release 24 hr clopidogrel 75 mg tablet 75 mg PO DAILY 09/05/24 08/17/25 insulin glargine 100 unit/mL (3 16 unit SUBCUT BEDTIME 09/05/24 08/17/25 mL) subcutaneous pen (Lantus Solostar U-100 Insulin) aspirin 81 mg tablet,delayed 81 mg PO DAILY 11/21/24 08/17/25 release glipizide 10 mg tablet, extended 10 mg PO DAILY 08/01/25 08/17/25 release 24 hr bupropion HCl 150 mg tablet,12 hr 150 mg PO BID 08/17/25 08/17/25 sustained-release Previous Rx's ?Medication ?Instructions ?Recorded 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 sensor (Dexcom G7 #3 ea 12/04/24 Sensor device) 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,combination presser,cont #1 ea 12/04/24 (Dexcom G7 Cellars Supervisor) polyethylene glycol 3350 17 gram 17 g PO DAILY PRN constipation #14 08/29/25 oral powder packet (Miralax) ea Allergies Allergy/AdvReac Type Severity Reaction Status Date / Time No Known Allergies Allergy Verified 08/29/25 06:15 Review of Systems GI: Reports: abdominal pain and constipation PFSH ED PFSH: Medical History COPD (chronic obstructive pulmonary disease) Lung mass Surgical History H/O hernia repair Family History Denies family history of Clotting disorder Bleeding disorder Social History Smoking and tobacco/nicotine status: unknown if used tobacco/nicotine Alcohol intake: never Substance/Drug Use: never Lives independently: Yes Household members: none Physical Exam Const: COMMON NORMALS: no acute distress, patient oriented x3 and healthy appearing HENMT: COMMON NORMALS: normocephalic and atraumatic HEAD & SCALP: normocephalic and atraumatic Eye: COMMON NORMALS: Equal, round and reactive pupils present and EOMs intact bilaterally PUPIL: Yes Equal, round and reactive pupils present Neck/C-Spine: COMMON NORMALS: full ROM and supple Chest: COMMONS NORMALS: normal inspection of the chest and normal palpation of entire chest wall Resp: COMMON NORMALS: normal respiratory effort, No retractions, No use of accessory muscles and clear to auscultation bilaterally AUSCULTATION: clear to auscultation bilaterally Cardio: COMMON NORMALS: regular rate, regular rhythm and No murmurs present (Cardio) RATE: regular rate RHYTHM: regular rhythm GI: COMMON NORMALS: Normal to inspection, nondistended, normoactive bowel sounds present, Soft to palpation, non-tender and no masses PALPATION: Yes Soft to palpation Extremity: COMMON NORMALS: normal to inspection and full ROM Neuro: COMMON NORMALS: patient oriented x3, moves all extremities and no focal motor deficits Psych: COMMON NORMALS: mental status grossly normal, Normal thought process present and cooperative THOUGHT PROCESS: Normal thought process present Skin: COMMON NORMALS: no rashes or lesions noted and no wounds GENERAL SKIN EXAM: no rashes or lesions noted Course Vital Signs: Vital signs: Vital Signs Temperature 98.4 F 08/29/25 06:12 Pulse Rate 100 08/29/25 06:12 Respiratory Rate 18 08/29/25 06:12 Blood Pressure 125/70 08/29/25 06:12 Pulse Oximetry 98 08/29/25 06:12 MDM - Nausea/Vomiting/Diarrhea Medical Decision Making Patient presents here with constipation along with abdominal cramping. Differential includes small bowel obstruction, constipation. He has had no vomiting I did interpret his x-ray shows no signs of small bowel obstruction does have a large amount of fecal content likely constipation is causing his cramping his abdominal exam here is benign with no tenderness no signs of appendicitis or diverticulitis. Did give him lactulose here will prescribe him MiraLAX he is to follow-up with PCP and return if worsening he understands agrees to plan. I did review his labs are no acute abnormalities white count is normal Medical Records I reviewed the patient's medical records. Lab Data I reviewed the patient's lab results. 08/29/25 06:46 08/29/25 06:46 Radiology Impressions KUB X-Ray 08/29/25 05:52 Impression: Large amount of fecal material in the colon. Laboratory Results WBC 8.62 10^3/uL (3.29-11.43) 08/29/25 06:46 RBC 5.04 10^6/uL (3.85-5.65) 08/29/25 06:46 Hgb 16.80 g/dL (11.27-16.99) 08/29/25 06:46 Hct 51.0 % (37-53) 08/29/25 06:46 MCV 101.2 fl (82-101) H 08/29/25 06:46 MCH 33.3 pg (27-33) H 08/29/25 06:46 MCHC 32.9 g/dL (30-55) 08/29/25 06:46 RDW 12.6 % (12.1-15.1) 08/29/25 06:46 Plt Count 221 10^3/cmm (157-399) 08/29/25 06:46 MPV 10.0 fL (7.4-10.4) 08/29/25 06:46 Neut % (Auto) 74.6 % 08/29/25 06:46 Lymph % (Auto) 14.7 % 08/29/25 06:46 [place] % (Auto) 7.5 % 08/29/25 06:46 Eos % (Auto) 2.3 % 08/29/25 06:46 Baso % (Auto) 0.8 % 08/29/25 06:46 Neut # (Auto) 6.42 10^3/uL (1.8-7.7) 08/29/25 06:46 Lymph # (Auto) 1.3 10^3/uL (0.8-4.8) 08/29/25 06:46 [place] # (Auto) 0.7 10^3/uL (0.2-0.9) 08/29/25 06:46 Eos # (Auto) 0.2 10^3/uL (0.0-0.8) 08/29/25 06:46 Baso # (Auto) 0.1 10^3/uL (0.0-0.1) 08/29/25 06:46 Nucleated RBC % (auto) 0 % 08/29/25 06:46 Nucleated RBCs # 0.0 /100WBC 08/29/25 06:46 Sodium 138 mmol/L (136-145) 08/29/25 06:46 Potassium 4.8 mmol/L (3.5-5.1) 08/29/25 06:46 Chloride 102 mmol/L (98-107) 08/29/25 06:46 Carbon Dioxide 22 mmol/L (22-29) 08/29/25 06:46 Anion Gap 18.8 (5-19) 08/29/25 06:46 BUN 32 mg/dL (8-23) H 08/29/25 06:46 Creatinine 1.2 mg/dL (0.7-1.2) 08/29/25 06:46 GFR Calculation 60.6 mL/min (90-130) L 08/29/25 06:46 Glucose 92 mg/dL (65-115) 08/29/25 06:46 Calculated Osmolality 293 mOsm/kg (285-295) 08/29/25 06:46 Calcium 9.8 mg/dL (8.5-10.5) 08/29/25 06:46 Total Bilirubin 1.4 mg/dL (0.15-1.2) H 08/29/25 06:46 AST 28 U/L (0-40) 08/29/25 06:46 ALT 21 U/L (0-41) 08/29/25 06:46 Alkaline Phosphatase 70 U/L (40-130) 08/29/25 06:46 Total Protein 8.0 g/dL (6.6-8.7) 08/29/25 06:46 Albumin 4.9 g/dL (3.5-5.2) 08/29/25 06:46 Globulin 3.1 g/dL (1.3-4.6) 08/29/25 06:46 Lipase 18 U/L (13-60) 08/29/25 06:46 All radiology interpretation(s) finalized by discharge Discharge Plan Discharge Patient Disposition: Home Clinical Impression: Constipation Condition: Stable Prescriptions: New polyethylene glycol 3350 [Miralax] 17 gram powder in packet 17 g PO DAILY PRN (Reason: constipation) Qty: 14 0RF No Action clopidogrel 75 mg tablet 75 mg PO DAILY insulin glargine [Lantus Solostar U-100 Insulin] 100 unit/mL (3 mL) insulin pen 16 unit SUBCUT BEDTIME (DME) Dexcom G7 Sensor Device See Rx Instructions .Route Qty: 3 3RF Rx Instructions: change sensors every 10 days (DME) Dexcom G7 Cellars Supervisor Misc See Rx Instructions .Route Qty: 1 0RF Rx Instructions: As directed atorvastatin 40 mg tablet 40 mg PO BEDTIME spironolactone 25 mg tablet 25 mg PO DAILY albuterol sulfate 90 mcg/actuation HFA aerosol inhaler 1 puff INHALATION Q4H PRN (Reason: Shortness Of Breath Or Wheezing) bupropion HCl 150 mg tablet sustained-release 12 hr 150 mg PO BID metoprolol succinate 50 mg tablet extended release 24 hr 50 mg PO DAILY amlodipine 10 mg tablet 10 mg PO DAILY lisinopril 40 mg tablet 40 mg PO DAILY fluticasone propionate 50 mcg/actuation [place],Suspension 1 spray INTRANASAL BID Rx Instructions: administer into each nostril Trelegy Ellipta 100-62.5-25 mcg blister with device 1 ea INHALATION DAILY aspirin [Aspir-81] 81 mg Tablet,Delayed Release (Dr/Ec) 81 mg PO DAILY glipizide 10 mg tablet extended release 24hr 10 mg PO DAILY Discharge Orders: Discharge ED (Routine); Ordered 08/29/25 Ordered By: Allison Pretty Referrals: Snowden,REBEKAH HewittP [Primary Care Provider, Nurse Practitioner] - 4-7 days Discharge Diet: Advance as tolerated Discharge Activity: Resume usual activity Patient Instructions: Constipation (ED) Print Language: Nepali Coding Level of Care Code ED Neighborhood Aide for Lidia An
[2025-08-29 06:51] LABS: Hematocrit 51.0 % (37-53); Hemoglobin 16.80 g/dL (11.27-16.99); Mean Corpuscular HGB Conc 32.9 g/dL (30-55); Mean Corpuscular Hemoglobin 33.3 pg (27-33); Mean Corpuscular Volume 101.2 fl (82-101); Nucleated Red Blood Cells % 0 %; Platelet Count 221 10^3/cmm (157-399); Red Blood Count 5.04 10^6/uL (3.85-5.65); White Blood Count 8.62 10^3/uL (3.29-11.43)
[2025-08-29 07:07] LABS: Alanine Aminotransferase 21 U/L (0-41); Albumin Level 4.9 g/dL (3.5-5.2); Alkaline Phosphatase 70 U/L (40-130); Anion Gap 18.8 (5-19); Aspartate Amino Transferase 28 U/L (0-40); Blood Urea Nitrogen 32 mg/dL (8-23); Calcium 9.8 mg/dL (8.5-10.5); Carbon Dioxide 22 mmol/L (22-29); Chloride 102 mmol/L (98-107); Creatinine Clr Calc Pharmacy 60.0137; Globulin 3.1 g/dL (1.3-4.6); Glucose 92 mg/dL (65-115); Lipase 18 U/L (13-60); Osmolality Calculated 293 mOsm/kg (285-295); Potassium 4.8 mmol/L (3.5-5.1); Sodium 138 mmol/L (136-145); Total Protein 8.0 g/dL (6.6-8.7)
[2025-08-29] MEDS: lactulose oral liq 20 gm/30 mL UDC 30 GM PO (08:22)
[2025-08-29 08:30] VITALS: BP 157/89; PULSE 67; O2SAT 97
== END 2025-08-29 08:30 | disposition home or self-care (01) ==
PROVIDERS: Emergency Provider Emergency Medicine; PCP Nurse Practitioner Family
DX: K59.00 Constipation, unspecified (principal); Z79.02 Long term (current) use of antithrombotics/antiplatelets; Z79.4 Long term (current) use of insulin; Z79.82 Long term (current) use of aspirin; J44.9 Chronic obstructive pulmonary disease, unspecified
CPT/HCPCS: 36415; 74018; 80053; 83690; 85025; 99285; J9999